=== PATIENT | female | born 1955 | race Caucasian/White ===

== ENCOUNTER → 2016-12-07 | Outpatient (CLI) | payer OTHER ==
[~2016-12-07] MED LIST: ALBUAER2 INH; EFF75 PO; HYDR-4079 PO; METO100T44 PO; PRED10TA PO
[2016-12-07 11:53] LABS: BASO % 1.8 %; BASO ABS # 0.09 K/uL (0-0.2); HEMATOCRIT 38.4 % (37-47); IG% 0.4 %; LYMPH % 36.7 %; LYMPH ABS # 1.83 K/uL (1.2-3.4); MEAN CELL VOLUME 98.2 fL (80-100); MEAN CORPUSCULAR HEMOGLOBIN 30.2 pg (25-34); MEAN CORPUSCULAR HGB CONC 30.7 g/dl (32-36); MEAN PLATELET VOLUME 10.9 fL (7.4-10.4); MONO % 11.2 %; NEUT % 45.9 %; PLATELET COUNT 246 K/uL (130-400); RED BLOOD COUNT 3.91 M/uL (4.2-5.4); WHITE BLOOD COUNT 4.99 K/uL (4.8-10.8)
[2016-12-07 12:23] LABS: ALB/GLOB RATIO 0.7 (0.9-2); ALKALINE PHOSPHATASE 100 U/L (45-117); ALT/SGPT 20 U/L (12-78); AST/SGOT 21 U/L (15-37); BLOOD UREA NITROGEN 15 mg/dl (7-18); CALCIUM 9.4 mg/dl (8.5-10.1); CARBON DIOXIDE 32 mmol/L (21-32); CHLORIDE 106 mmol/L (98-107); CREATININE 0.77 mg/dl (0.60-1.20); GLUCOSE 86 mg/dl (70-99); POTASSIUM 4.6 mmol/L (3.5-5.1); SODIUM 141 mmol/L (136-145)
[2016-12-07 12:25] LABS: COMPLETE YES; ROULEAUX 3+
[2016-12-09 09:38] LABS: HEPATITIS C VIRAL RNA BY PCR <15 NOT DETECTED IU/ML (<15); HEPATITIS C VIRAL RNA(LOG) PCR <1.18 NOT DETECTED LOG IU/ML (<1.18)
== END | disposition home or self-care (01) ==
LOC: C.LAB1850 10:21
PROVIDERS: ATTEND Internal Medicine Infectious Disease
DX: B18.2 Chronic viral hepatitis C (principal)

== ENCOUNTER → 2017-05-11 | Outpatient (CLI) | payer OTHER ==
[~2017-05-11] MED LIST changes: -METO100T44 PO; +METO1TAB69 PO
--- NOTE | 2017-05-11 11:52 | DIAGNOSTIC IMAGING REPORT ---
MRI CERVICAL WITHOUT CONTRAST CLINICAL HISTORY: Neck pain with popping voids. Severe headaches. TECHNIQUE: Sagittal and axial T1, T2 and STIR images were obtained. COMPARISON STUDY: CT scan dated March 02, 2015, MRI of the cervical spine dated 07/05/2012 There are no suspicious areas of marrow replacement. No intrinsic cervical cord lesions are visualized. There is no evidence of a Chiari malformation. C2-3: There is no evidence of disc bulge or focal herniation. There is no spinal or foraminal stenosis. C3-4: There is no evidence of disc bulge or focal herniation. There is no spinal or foraminal stenosis. C4-5: There is a mild circumferential disc bulge. There is no significant spinal or foraminal stenosis C5-6 :There is mild retrolisthesis of C5 on C6. There is disc desiccation and narrowing. There is no significant spinal stenosis. There is mild bilateral foraminal narrowing. C6-7: There is no evidence of disc bulge or focal herniation. There is no evidence of spinal or foraminal stenosis. C7-T1: There is no evidence of disc bulge or focal herniation. There is no evidence of spinal or foraminal stenosis. IMPRESSION:Persistent degenerative changes at the C5-6 level with 2.7 mm of retrolisthesis of C5 on C6 which remains unchanged. Mild bilateral foraminal narrowing at the C5-6 level. Electronically signed by: Guillermo Guerrero M.D. 05/11/2017 11:50 AM Dictated Date/Time: 05/11/2017 11:46 AM
== END | disposition home or self-care (01) ==
LOC: C.MRI 10:47
PROVIDERS: ATTEND Neurological Surgery
DX: R51 Headache (principal); M47.892 Other spondylosis, cervical region

== ENCOUNTER 2022-04-15 11:07 | Observation (INO) ==
--- NOTE | 2022-03-09 14:06 | PAT Medication Instructions ---
Medication Instructions Date of Service March 09, 2022 Home Medications Medication Instructions Recorded albuterol sulfate 2.5 mg/3 mL 2.5 mg (3 mL) inhalation Q4H PRN 04/07/20 (0.083 %) solution for nebulization Shortness Of Breath Or Wheezing #150 mL cholecalciferol (vitamin D3) 125 125 mcg PO DAILY #30 caps 10/07/20 mcg (5,000 unit) capsule montelukast 10 mg tablet 10 mg PO HS 1 month #30 tabs 06/16/21 (Singulair) gabapentin 300 mg capsule 300 mg PO TID #270 caps 08/05/21 (Neurontin) budesonide-formoterol HFA 160 1 puff inhalation BID #10.2 grams 09/23/21 mcg-4.5 mcg/actuation aerosol inhaler (Symbicort) omeprazole 20 mg capsule,delayed See Rx Instructions .Route 12/21/21 release .COMPLEX #90 caps bupropion HCl 150 mg 24 hr tablet, 150 mg PO QAM #90 tabs 01/13/22 extended release albuterol sulfate 90 mcg/actuation 2 puff inhalation QID PRN 02/07/22 aerosol inhaler (Ventolin HFA) Bronchodilation #8.5 grams carisoprodol 350 mg tablet 350 mg PO BID PRN muscle pain #60 02/16/22 tabs oxycodone-acetaminophen 10 mg-325 1 tab PO Q6H PRN Pain #120 tabs 02/16/22 mg tablet alendronate 70 mg tablet (Fosamax) 70 mg PO MO #12 tabs 03/08/22 albuterol sulfate 2.5 mg/3 mL (0.083 %) solution for nebulization 2.5 mg (3 mL) inhalation Q4H PRN Shortness Of Breath Or Wheezing cholecalciferol (vitamin D3) 125 mcg (5,000 unit) capsule 125 mcg PO DAILY montelukast 10 mg tablet (Singulair) 10 mg PO HS 1 month gabapentin 300 mg capsule (Neurontin) 300 mg PO TID budesonide-formoterol HFA 160 mcg-4.5 mcg/actuation aerosol inhaler (Symbicort) 1 puff inhalation BID omeprazole 20 mg capsule,delayed release See Rx Instructions bupropion HCl 150 mg 24 hr tablet, extended release 150 mg PO QAM albuterol sulfate 90 mcg/actuation aerosol inhaler (Ventolin HFA) 2 puff inhalation QID PRN Bronchodilation carisoprodol 350 mg tablet 350 mg PO BID PRN muscle pain oxycodone-acetaminophen 10 mg-325 mg tablet 1 tab PO Q6H PRN Pain alendronate 70 mg tablet (Fosamax) 70 mg PO MO eygsevt-tlcpvezygujgx-qrhttpse 250 mg-250 mg-65 mg tablet (Excedrin Extra Strength) 1 - 2 tab PO Q6H PRN Pain duloxetine 30 mg capsule,delayed release (Cymbalta) 30 mg PO QAM duloxetine 60 mg capsule,delayed release 60 mg PO QAM ibuprofen 200 mg tablet (Advil) 400 mg PO Q6H PRN Pain metoprolol succinate 100 mg tablet,extended release 24 hr 100 mg PO QAM tiotropium bromide 2.5 mcg/actuation mist for inhalation (Spiriva Respimat) 2 puff inhalation QAM Continue as directed omeprazole 20 mg capsule,delayed release See Rx Instructions alendronate 70 mg tablet (Fosamax) 70 mg PO MO (just do not take on morning of surgery) ASK your surgeon for instructions goagchu-cjutloimvolxl-yjtwjqcy 250 mg-250 mg-65 mg tablet (Excedrin Extra Strength) 1 - 2 tab PO Q6H PRN Pain ibuprofen 200 mg tablet (Advil) 400 mg PO Q6H PRN Pain DO NOT take the morning of surgery cholecalciferol (vitamin D3) 125 mcg (5,000 unit) capsule 125 mcg PO DAILY carisoprodol 350 mg tablet 350 mg PO BID PRN muscle pain Take morning of surgery With a small sip of water, OTHERWISE NOTHING TO EAT OR DRINK AFTER MIDNIGHT: albuterol sulfate 2.5 mg/3 mL (0.083 %) solution for nebulization 2.5 mg (3 mL) inhalation Q4H PRN Shortness Of Breath Or Wheezing (if needed) metoprolol succinate 100 mg tablet,extended release 24 hr 100 mg PO QAM tiotropium bromide 2.5 mcg/actuation mist for inhalation (Spiriva Respimat) 2 puff inhalation QAM gabapentin 300 mg capsule (Neurontin) 300 mg PO TID budesonide-formoterol HFA 160 mcg-4.5 mcg/actuation aerosol inhaler (Symbicort) 1 puff inhalation BID bupropion HCl 150 mg 24 hr tablet, extended release 150 mg PO QAM albuterol sulfate 90 mcg/actuation aerosol inhaler (Ventolin HFA) 2 puff inhalation QID PRN Bronchodilation (use if needed; please bring with you to hospital day of surgery if possible) oxycodone-acetaminophen 10 mg-325 mg tablet 1 tab PO Q6H PRN Pain (if needed) duloxetine 30 mg capsule,delayed release (Cymbalta) 30 mg PO QAM duloxetine 60 mg capsule,delayed release 60 mg PO QAM Take evening before surgery montelukast 10 mg tablet (Singulair) 10 mg PO HS gabapentin 300 mg capsule (Neurontin) 300 mg PO TID budesonide-formoterol HFA 160 mcg-4.5 mcg/actuation aerosol inhaler (Symbicort) 1 puff inhalation BID albuterol sulfate 90 mcg/actuation aerosol inhaler (Ventolin HFA) 2 puff inhalation QID PRN Bronchodilation (if needed) carisoprodol 350 mg tablet 350 mg PO BID PRN muscle pain (if needed) oxycodone-acetaminophen 10 mg-325 mg tablet 1 tab PO Q6H PRN Pain (if needed) Other Notes If you have any questions please call us at [phone] or [phone] or [phone] or [phone]
--- NOTE | 2022-03-14 13:53 | Anesthesiology Consultation ---
Date of Service March 14, 2022 Assessment & Plan (1) Encounter for pre-operative examination: - Cardiology office visit (10/29/20): "Cardiomyopathy: She has a mild cardiomyopathy with wall motion abnormalities. The wall motion abnormalities are worrisome. She has a lot of reasons for cardiomyopathy including a sustained high heart rate, frequent premature ventricular beats and possibly ischemic heart disease although there is no infarction pattern on electrocardiography. We will probably need to do something to exclude ischemic heart disease but I want to get the rhythm under control a little bit before we do that.. Frequent premature ventricular beats: She appears to have very frequent premature ventricular beats, today they are in a bigeminal pattern. Based on the morphology they are inferiorly directed but from the left heart, not the right ventricular outflow tract. They may be contributory to her cardiomyopathy. I think we should place her on a beta-nathaniel and I am going to prescribe metoprolol succinate in place of diltiazem, calcium blockers can sometimes be used for these rhythms but it clearly is not working today. Sometimes it takes high doses to treat these. Ablation is also a possibility, but first I would like to quantify the premature beats and see if there is any complexity such as runs of nonsustained ventricular tachycardia. I am placing a 24-hour Holter monitor today and she will start her metoprolol until after the monitor is removed tomorrow.. Tachycardia: She evidently has a long history of tachycardia, prior electrocardiogram shows sinus tachycardia and perhaps that is what she has had for years. That could contribute to left ventricular dysfunction. She is on diltiazem (although she does not know why) but that is often not very effective in controlling heart rate. I think would be better to use a beta-nathaniel, especially with her left ventricular dysfunction, so I am going to switch her to metoprolol succinate.. Dyspnea on exertion: She does describe dyspnea exertion which has not been progressive but does interfere with strenuous activities. 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 Epigastric discomfort: She describes epigastric discomfort which occurs predominantly after she eats greasy meals or when she eats too much or when she eats spicy food like chili, it does not occur with exertion. It sounds as though it is GERD rather than angina." Patient states she was not given f/u appt (one was scheduled in our system but patient says she did not know about it). Patient scheduled for preop cardiology evaluation (scheduled 03/23; [facility]). - COVID screening: Per assessment on 03/14: No known COVID-19 positive contacts or current COVID-19 related symptoms. Travel screen negative. Patient vaccinated. At surgeon discretion if preop Covid testing being done. Chart Review Chart Review: Patient seen in Pre Admission Testing Teaching & Discussion Pre-Anesthesia Teaching/Discussion Notes: Instructed NPO after midnight before surgery,except medications with 15 cc of water. Medication instructions provided according to the PAT guidelines. History Surgery Operation Date: 04/15/22 12:50 Proposed Procedures p Right Total Knee Arthroplasty - Gabriel Rick DO Height/Weight Height: 5 ft 1 in Weight: 63.4 kg Allergies Allergy/AdvReac Type Severity Reaction Status Date / Time Horse/Equine Containing Allergy Unknown Skin test Verified 03/14/22 14:02 Products positive Medications Home Medications Medication Instructions Recorded Confirmed Last Taken albuterol sulfate 2.5 mg/3 mL 2.5 mg (3 mL) inhalation Q4H PRN 04/07/20 03/08/22 Unknown (0.083 %) solution for nebulization Shortness Of Breath Or Wheezing #150 mL cholecalciferol (vitamin D3) 125 125 mcg PO DAILY #30 caps 10/07/20 03/08/22 Unknown mcg (5,000 unit) capsule montelukast 10 mg tablet 10 mg PO HS 1 month #30 tabs 06/16/21 03/08/22 Unknown (Singulair) gabapentin 300 mg capsule 300 mg PO TID #270 caps 08/05/21 03/08/22 Unknown (Neurontin) budesonide-formoterol HFA 160 1 puff inhalation BID #10.2 grams 09/23/21 03/08/22 Unknown mcg-4.5 mcg/actuation aerosol inhaler (Symbicort) omeprazole 20 mg capsule,delayed See Rx Instructions .Route 12/21/21 03/08/22 Unknown release .COMPLEX #90 caps bupropion HCl 150 mg 24 hr tablet, 150 mg PO QAM #90 tabs 01/13/22 03/08/22 Unknown extended release albuterol sulfate 90 mcg/actuation 2 puff inhalation QID PRN 02/07/22 03/08/22 Unknown aerosol inhaler (Ventolin HFA) Bronchodilation #8.5 grams carisoprodol 350 mg tablet 350 mg PO BID PRN muscle pain #60 02/16/22 03/08/22 Unknown tabs oxycodone-acetaminophen 10 mg-325 1 tab PO Q6H PRN Pain #120 tabs 02/16/22 03/08/22 Unknown mg tablet alendronate 70 mg tablet (Fosamax) 70 mg PO MO #12 tabs 03/08/22 03/08/22 Unknown lbfrtbl-spfnnfklglpvi-zvztsczf 250 1 - 2 tab PO Q6H PRN Pain 03/08/22 03/08/22 Unknown mg-250 mg-65 mg tablet (Excedrin Extra Strength) duloxetine 30 mg capsule,delayed 30 mg PO QAM 03/08/22 03/08/22 Unknown release (Cymbalta) duloxetine 60 mg capsule,delayed 60 mg PO QAM 03/08/22 03/08/22 Unknown release ibuprofen 200 mg tablet (Advil) 400 mg PO Q6H PRN Pain 03/08/22 03/08/22 Unknown metoprolol succinate 100 mg 100 mg PO QAM 03/08/22 03/08/22 Unknown tablet,extended release 24 hr tiotropium bromide 2.5 2 puff inhalation QAM 03/08/22 03/08/22 Unknown mcg/actuation mist for inhalation (Spiriva Respimat) Past Medical History Medical History Allergic rhinitis Anxiety Asthma-COPD overlap syndrome Stable Cardiomyopathy EF 45-50% per 10/16/20 echo > Possibly tachycardia-induced per cardio records Cervical disc disease Chronic back pain Frequent unifocal PVCs GERD (gastroesophageal reflux disease) Hepatitis C Treated with Harvoni Hiatal hernia History of atrial fibrillation Remote hx 30 years ago per pt's (not indicated in 2020 cardio records) Hypertension Kidney stones Mixed conductive and sensorineural hearing loss Osteoarthritis of right knee Osteoporosis Fosamax started 09/2019 Vocal cord disease "flow volume loop suggest significant expiratory limb flattening which would be consistent with potential paroxysmal vocal cord dysfunction" per pulmonary review of PFTs from 06/2020 Exercise / Class Metabolic Activity III < 4 Walking/Shop/Light housework (one (no CP, + SOB)) Past Family History Family History Father Family history of diabetes mellitus Hypertension Coronary heart disease Prostate cancer Cancer Heart disease Mother Hypertension COPD (chronic obstructive pulmonary disease) Aunt Asthma Allergic rhinitis Hypertension Heart disease Other No family history of allergies No family history of bleeding disorder Denies family history of Hearing loss Stroke Past Surgical History Surgical History History of bilateral cataract extraction History of bilateral tubal ligation History of colonoscopy History of cystoscopy History of esophagogastroduodenoscopy (EGD) History of foot surgery History of lithotripsy History of myringotomy R/L History of neck surgery History of open reduction and internal fixation (ORIF) procedure left foot (+ plate) History of placement of ear tubes History of sinus surgery History of tonsillectomy and adenoidectomy Status post cervical spinal fusion Status post correction of deviated nasal septum Status post cystoscopy with ureteral stent placement Status post thoracotomy L lung with biopsy (negative) Past Anesthesia History No Hx of Anesthesia Complications and No Family Hx of Anesthesia Complications History of PONV No Hx of PONV and No Hx of Motion Sickness Social History Smoking Status: Former smoker Do You Dip or Chew Tobacco: No Smoking End Date: Quit 40 years ago (hx 1-2 packs/week) Hx Alcohol Use: Yes Alcohol type: beer alcohol intake frequency: holidays/special occasions only Hx Substance Use: No Review of Systems Patient denies chest pain, shortness of breath, dyspnea on exertion, fever, chills, cough, wheezing. Physical Exam Vital Signs VITALS BP 108/76 P 93 TEMP 98.5 SP02 95%RA RESP 18 PHYSICAL Full cervical extension range of motion. Full TMJ range of motion. TMD 3 finger breaths Mallampati Score 1 Dentition: full upper denture, approximately 8 remaining on lower Lungs: inspiratory/expiratory wheezes Cardiac: regular rate and rhythm, no murmurs noted Spine: normal Carotid arteries: negative bruit Extremities: no edema Lab Results Anesthesia Preop Results Results Anesthesia Widget: WBC 5.80 K/ul (4.8-10.8) 03/14/22 Hgb 11.4 g/dl (12.0-16.0) L 03/14/22 Hct 36.7 % (34.1-44.9) 03/14/22 Plt 180 K/uL (130-400) 03/14/22 Na 139 mmol/L (136-145) 03/14/22 K 4.3 mmol/L (3.5-5.1) 03/14/22 Cl 109 mmol/L (98-107) H 03/14/22 CO2 26 mmol/L (21-32) 03/14/22 BUN 13 mg/dl (6-23) 03/14/22 Creat 0.93 mg/dl (0.6-1.2) 03/14/22 Glucose Level 89 mg/dl (70-99(Fasting)) 03/14/22 PT 10.9 Seconds (9.0-12.0) 03/14/22 PTT 28.5 Seconds (21.0-31.0) 03/14/22 INR 1.0 (0.9-1.1) 03/14/22 Blood Type O Positive 03/14/22 Antibody Screen NEGATIVE 03/14/22 Testing Electrocardiogram Date: 03/14/22 NSR at 88bpm. Low voltage QRS. Chest X-Ray Date: 03/14/22 FINDINGS: Lung volumes are normal. Lungs are clear. There is no pneumothorax or pleural effusion. Cardiac size is normal. Mediastinal contours are normal. There is no evidence for pulmonary edema. Postoperative findings within the cervical spine are incidentally noted. IMPRESSION: No acute cardiopulmonary findings. Echocardiogram Date: 10/16/20 EF 45-50%. Grade 1 diastolic dysfunction. No regional wall motion abnormality. Mild lateral and basal inferior hypokinesis. Mild to moderate MR. Mild LAD. Trace to mild TR. Pulmonary Function Test Date: 07/29/20 Moderate obstructive ventilatory defect. Normal lung volumes. DLCO severely reduced but improves with VA. Flattening of the expiratory limb and flow volume loop. Other Testing 24 hour holter monitor (10/29/20) Rhythm is predominantly sinus tachycardia with incomplete IVCD. Average heart rate is 101 bpm. Minimum heart rate 85 bpm. Maximum heart rate 132 bpm. No significant pauses or AV block noted. Occasional isolated APD's noted. Isolated nonsustained episodes of atrial tachycardia seen. Frequent isolated and couplet VPD's noted. Isolated nonsustained episodes of A. tach seen (up to 4 beats). Ventricular arrhythmia comprise 23.7% of recorded beats.
--- NOTE | 2022-04-14 11:17 | History & Physical Report ---
Date of Service April 14, 2022 Assessment & Plan (1) Osteoarthritis of right knee: We will proceed with a right total knee arthroplasty. Postoperatively she will be started on aspirin for DVT prophylaxis and kept overnight in the hospital for postop medical management. She plans to have home health set up for her before discharge. History of Present Illness Chief Complaint: Osteoarthritis of the right knee. Primary Care Provider: Kala Yarbrough MD Shahnaz is a pleasant 66-year-old female who has been dealing with chronic worsening right knee pain. She has severe varus deformity of her right knee. It is causing her instability and she has been falling recently. She saw my partner Dr. Fairbanks. X-rays show severe varus deformity and arthritis of the right knee. After failing conservative treatment, she has elected to proceed with a right total knee arthroplasty. Allergies Allergy/AdvReac Type Severity Reaction Status Date / Time Horse/Equine Containing Allergy Unknown Skin test Verified 04/05/22 14:07 Products positive Home Medications Medication Instructions Recorded Confirmed Type albuterol sulfate 2.5 mg/3 mL 2.5 mg (3 mL) inhalation Q4H PRN 04/07/20 04/05/22 Rx (0.083 %) solution for nebulization Shortness Of Breath Or Wheezing #150 mL cholecalciferol (vitamin D3) 125 125 mcg PO DAILY #30 caps 10/07/20 04/05/22 Rx mcg (5,000 unit) capsule montelukast 10 mg tablet 10 mg PO HS 1 month #30 tabs 06/16/21 04/05/22 Rx (Singulair) gabapentin 300 mg capsule 300 mg PO TID #270 caps 08/05/21 04/05/22 Rx (Neurontin) budesonide-formoterol HFA 160 1 puff inhalation BID #10.2 grams 09/23/21 04/05/22 Rx mcg-4.5 mcg/actuation aerosol inhaler (Symbicort) omeprazole 20 mg capsule,delayed See Rx Instructions .Route 12/21/21 04/05/22 Rx release .COMPLEX #90 caps bupropion HCl 150 mg 24 hr tablet, 150 mg PO QAM #90 tabs 01/13/22 04/05/22 Rx extended release albuterol sulfate 90 mcg/actuation 2 puff inhalation QID PRN 02/07/22 04/05/22 Rx aerosol inhaler (Ventolin HFA) Bronchodilation #8.5 grams alendronate 70 mg tablet (Fosamax) 70 mg PO MO #12 tabs 03/08/22 04/05/22 Rx mnsqyed-pauhcdjfjdqvx-sdpnatys 250 1 - 2 tab PO Q6H PRN Pain 03/08/22 04/05/22 History mg-250 mg-65 mg tablet (Excedrin Extra Strength) duloxetine 30 mg capsule,delayed 30 mg PO QAM 03/08/22 04/05/22 History release (Cymbalta) duloxetine 60 mg capsule,delayed 60 mg PO QAM 03/08/22 04/05/22 History release ibuprofen 200 mg tablet (Advil) 400 mg PO Q6H PRN Pain 03/08/22 04/05/22 History metoprolol succinate 100 mg 100 mg PO QAM 03/08/22 04/05/22 History tablet,extended release 24 hr tiotropium bromide 2.5 2 puff inhalation QAM 03/08/22 04/05/22 History mcg/actuation mist for inhalation (Spiriva Respimat) hydroxyzine HCl 10 mg tablet See Rx Instructions .Route 04/05/22 04/05/22 Rx .COMPLEX #30 tabs carisoprodol 350 mg tablet 350 mg PO BID PRN muscle pain #60 04/11/22 Rx tabs oxycodone-acetaminophen 10 mg-325 1 tab PO Q6H PRN Pain #120 tabs 04/12/22 Rx mg tablet Past Med/Surg History Medical History Allergic rhinitis Anxiety Asthma-COPD overlap syndrome Stable Cardiomyopathy EF 45-50% per 10/16/20 echo > Possibly tachycardia-induced per cardio records Cervical disc disease Chronic back pain Frequent unifocal PVCs GERD (gastroesophageal reflux disease) Hepatitis C Treated with Harvoni Hiatal hernia History of atrial fibrillation Remote hx 30 years ago per pt's (not indicated in 2020 cardio records) Hypertension Kidney stones Mixed conductive and sensorineural hearing loss Osteoarthritis of right knee Osteoporosis Fosamax started 09/2019 Vocal cord disease "flow volume loop suggest significant expiratory limb flattening which would be consistent with potential paroxysmal vocal cord dysfunction" per pulmonary review of PFTs from 06/2020 Surgical History History of bilateral cataract extraction History of bilateral tubal ligation History of colonoscopy History of cystoscopy History of esophagogastroduodenoscopy (EGD) History of foot surgery History of lithotripsy History of myringotomy R/L History of neck surgery History of open reduction and internal fixation (ORIF) procedure left foot (+ plate) History of placement of ear tubes History of sinus surgery History of tonsillectomy and adenoidectomy Status post cervical spinal fusion Status post correction of deviated nasal septum Status post cystoscopy with ureteral stent placement Status post thoracotomy L lung with biopsy (negative) Family History Father Family history of diabetes mellitus Hypertension Coronary heart disease Prostate cancer Cancer Heart disease Mother Hypertension COPD (chronic obstructive pulmonary disease) Aunt Asthma Allergic rhinitis Hypertension Heart disease Other No family history of allergies No family history of bleeding disorder Denies family history of Hearing loss Stroke Social History Smoking Status: Former smoker Tobacco Type: Cigarettes Number of Years Since Quit: 40; Second Hand Exposure: Yes (SPOUSE SMOKES); Hx Alcohol Use: Yes Alcohol type: beer Hx Substance Use: No Preferred Language: Gibraltarian Communication Ability: Effective 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 Physical Exam On physical examination the right knee, she does have a severe varus deformity. She has range of motion of 0 to 120 degrees. She has tenderness palpation of the distal medial femoral condyle and over the medial joint line.. Constitutional WD/WN, vitals as above Eyes PERRL, conjunctivae normal, anicteric sclerae ENMT external ear and nose normal, oropharynx normal Neck trachea midline, no thyromegaly Respiratory normal respiratory effort, lungs clear to auscultation Cardiovascular RRR, no murmur, no edema Gastrointestinal (Abdomen) normal bowel sounds, soft, nontender, no hepatosplenomegaly Skin no rashes, warm and dry Psychiatric A+Ox3, euthymic affect Results & Data Results & Data Laboratory Results . Diagnostic Findings X-rays of the right knee show complete collapse of the medial compartment. The re is joint space narrowing osteophyte formation and [id number] articulation.. PG Care Time/CCT Total # of Minutes Spent Total Time Spent with Patient: Total time spent is greater than 50% in coordination of care (as documented) at patient's floor/unit and/or counseling patient: Coding Level of Care Code None Diagnoses Osteoarthritis of right knee M17.11
[~2022-04-15 11:07] MED LIST changes: +ACETAMINOPHEN 500 MG TAB PO SCH; -ALBUAER2 INH; +BUPIVACAINE 0.5 % 5 MG/1 ML PF 10ML VIAL ONE; -EFF75 PO; +FAMOTIDINE 20 MG TAB PO SCH; +GABAPENTIN 300 MG CAP PO SCH; -HYDR-4079 PO; +LR 500ML BOLUS, THEN 15ML/HR IV SCH; +LR 60ML/HR IV SCH; -METO1TAB69 PO; +ORTHO JOINT MIX INFIL SCH; -PRED10TA PO; +ROPIVACAINE 0.5% 5 MG/ML 30 ML VIAL ONE; +TRANEXAMIC ACID 1,000 MG **IV Intra-op IV SCH; +TRANEXAMIC ACID 1,000 MG **IV Pre-op IV SCH; +ceFAZolin 1000MG 1,000 MG/7.5 ML SYR IV SCH; +dexAMETHasone 4 MG TAB PO SCH
[2022-04-15] MEDS ORDERED: fentaNYL citrate 100 MCG/2 ML VIAL ONE ×2 (12:42→15:00)
[2022-04-15] MEDS ORDERED: PROPOFOL IV EMULSION 10 MG/ML 20 ML VIAL IV ONE ×3 (12:42→15:29)
[2022-04-15] MEDS ORDERED: MIDAZOLAM HCL 1 MG/ML 2ML VIAL ONE ×2 (12:42→14:18)
--- NOTE | 2022-04-15 13:11 | History & Physical Bridge Note ---
Date of Service April 15, 2022 History & Physical Bridge Note I have examined the patient, reviewed the History & Physical and in the interval since the performance of the History & Physical I have noted the following changes of clinical significance: no changes noted
[2022-04-15] MEDS ORDERED: ORTHO JOINT ANESTHETIC ONE (13:46)
[2022-04-15] MEDS ORDERED: KETAMINE 50 MG/5 ML SYRINGE ONE (14:14)
[2022-04-15] MEDS ORDERED: ONDANSETRON INJ 2 MG/ML 2 ML VIAL ONE (14:44)
--- NOTE | 2022-04-15 15:28 | Operative Report ---
PG Post Operative Report Pre & Post Diagnosis Operation Date: 04/15/22 14:00 Pre-Op Diagnosis: Osteoarthritis Right Knee Post-Op Diagnosis: Osteoarthritis Right Knee I identified the patient and participated in the time-out.: Yes Procedure Operation Date: 04/15/22 14:00 Actual Procedures p Right Total Knee Arthroplasty(Right) - Gabriel Rick DO Surgeon Gabriel Rick DO Painting Manager Gabriel Donato PA-C Estimated Blood Loss 10 Findings Consistent with Post-Op Diagnosis Specimens Right femoral and tibial bone Description of Procedure Implants used: I used a Stephie Persona total knee arthroplasty system with a size 5 PS femur, D tibia, 28 oval patella, and a size 12 CPS polyethylene bearing. All components were cemented in place with Biomet cement. Shahnaz arrived [facility] for the above procedure. She was seen in the preoperative holding area and the operative extremity was identified and signed. She was given a preoperative antibiotic, TXA, a spinal anesthetic and an adductor nerve block. She was taken back to the operating room and laid on the table in supine position. She was given basic sedation. The operative knee was then prepped and draped in sterile fashion. A timeout was done, and the patient and the operative extremity was properly identified. A midline incision was made directly over the patella. Dissection was taken down to the extensor mechanism. A subvastus arthrotomy was used. The medial retinaculum was released and the fat pad was mostly excised. The knee was flexed and the ACL, PCL, and meniscus were removed. A drill was sent down the center of the femoral canal followed by an intramedullary rosamaria. Off that rosamaria a distal femoral cutting block was placed. 9 mm was resected off the distal femur at 5 of valgus. A posterior referencing AP sizing guide was then placed on the distal femur. The femur measured to be a size 5. 2 drill holes were placed in 3 of external rotation. A 4-in-1 cutting block was then impacted into place. Anterior, posterior, and chamfer cuts were then made. The proximal tibia was then exposed. An external tibial alignment guide was placed. A tibial cut guide was then anchored in place and the proximal tibia was then resected. The posterior aspect of the knee was then opened up and any additional meniscus fragments and osteophytes were removed. The tibia measured to be a size D. The tibial plate was then placed in the appropriate rotation and the tibia was drilled and punched. Trial components were then placed. I used a size 12 CPS polyethylene insert. The knee was brought through a full range of motion and felt to be stable. The peg holes for the femoral component were then drilled. The patella was then everted and 9 mm was resected off the posterior aspect of the patella. The patella measured to be a size 28 oval. 3 peg holes were then drilled. A trial patella was placed. The knee was once again brought through a full range of motion and felt to be stable. Trial components were then removed. The surrounding soft tissues were injected with 100 cc of an orthopedic pain control cocktail. All components were then cemented into place with Biomet cement. The final polyethylene insert was then snapped into place. Once cement was dry the tourniquet was deflated. Hemostasis was obtained. A dilute betadyne lavage was then done for 3 minutes. The joint was then irrigated with normal saline solution. The subvastus arthrotomy was then closed with #1 Vicryl suture. The skin was closed with 2-0 Vicryl, 3-0V lock suture, and lizeth. A soft compressive dressing was placed. She was then transferred to a hospital bed and taken to the postanesthesia care unit in stable condition. She tolerated the procedure well. Gabriel Donato PA-C, was present for the entire procedure. He was critical for patient positioning, prepping, draping, retraction exposure, wound closure and application of sterile dressing. I attest to the content of the Intraoperative Record and any orders documented therein. Any exceptions are noted below.
--- NOTE | 2022-04-15 16:28 | XRay Report ---
RIGHT KNEE 2 VIEWS History: Right total knee arthroplasty. Degenerative arthritis. Postop. FINDINGS: The patient is status post a right total knee arthroplasty. The hardware is intact. No frac ture or dislocation. Skin lizeth are in place. IMPRESSION: Right total knee arthroplasty. No evidence for hardware complication. ACT 112: Negative or not required by law. Electronically signed by: Julius Royal M.D. 04/15/2022 4:27 PM
--- NOTE | 2022-04-15 16:51 | Anesthesiology Progress Note ---
Date of Service April 15, 2022 Anesthesia Post Procedure Vital Signs Vital Signs: Temp Pulse Pulse Resp BP Pulse Ox O2 Del Method 04/15/22 16:45 105 H 22 102/76 98 Room Air 04/15/22 16:35 103 H 17 96/63 L 100 Room Air 04/15/22 16:25 101 H 16 111/72 98 Room Air 04/15/22 16:15 106 H 20 91/66 L 99 Room Air 04/15/22 16:05 103 H 20 100/71 100 Oxymask 04/15/22 15:56 36.2 C L 107 H 16 113/74 99 Oxymask 04/15/22 11:49 36.4 C L 102 H 20 128/83 97 Room Air 04/15/22 11:49 Room Air O2 Flow Rate 04/15/22 16:45 04/15/22 16:35 04/15/22 16:25 04/15/22 16:15 04/15/22 16:05 5 04/15/22 15:56 5 04/15/22 11:49 04/15/22 11:49 Transfer of Care Handoff Completed per policy Notes Mental Status: alert / awake / arousable Patient Amnestic to Procedure: Yes Nausea / Vomiting: adequately controlled Pain: adequately controlled Airway Patency, RR, SpO2: stable & adequate BP & HR: stable & adequate Hydration State: stable & adequate Neuraxial Anesthesia: was administered and sensory block is resolving Anesthetic Complications: no major complications apparent and Pt Satisfied with anesthetic care Notes: The patient is awake and stable. Her vital signs are stable at her baseline.
[2022-04-15] MEDS ORDERED: ALBUTEROL HFA 8 GM INHALER INH PRN (17:23)
[2022-04-15] MEDS ORDERED: NALOXONE HCL 0.4 MG/1 ML VIAL/CARP IV PRN (17:23)
[2022-04-15] MEDS ORDERED: METOCLOPRAMIDE HCL INJ 5 MG/ML 2 ML VIAL IV PRN (17:23)
[2022-04-15] MEDS ORDERED: ALBUTEROL 0.083% NEBU SOLN 3 ML VIAL INH PRN (17:23)
[2022-04-15] MEDS ORDERED: bisacodyL 10 MG SUPP PR PRN (17:23)
[2022-04-15] MEDS ORDERED: CARISOPRODOL 350 MG TABLET PO PRN (17:23)
[2022-04-15] MEDS ORDERED: ONDANSETRON INJ 2 MG/ML 2 ML VIAL IV PRN (17:23)
[2022-04-15] MEDS ORDERED: HYDROmorphone INJ 0.5 MG/0.5 ML SYR IV PRN (17:23)
[2022-04-15] MEDS ORDERED: MAGNESIUM HYDROXIDE SUSP 30 ML UDC PO PRN (17:23)
[2022-04-15] MEDS: SODIUM CHLORIDE 0.9% 1000ML 1,000 ML IV SCH (18:26)
[2022-04-15] MEDS: KETOROLAC 30 MG/ML VIAL IV SCH (18:27)
[2022-04-15] MEDS ORDERED: hydrOXYzine HCl 10 MG TAB PO PRN (21:00)
[2022-04-15] MEDS ORDERED: MONTELUKAST SODIUM 10 MG TABLET PO SCH (21:00)
[2022-04-15] MEDS ORDERED: SENNA 8.6 MG TAB PO SCH (21:00)
[2022-04-15] MEDS: DOCUSATE SODIUM 100 MG CAP PO SCH (21:53)
[2022-04-15] MEDS: ASPIRIN 81 MG ECTAB PO SCH (21:53)
[2022-04-15] MEDS: GABAPENTIN 300 MG CAP PO SCH (21:55)
[2022-04-15] MEDS: ACETAMINOPHEN 500 MG TAB PO SCH (21:55)
[2022-04-15] MEDS: oxyCODONE HCL IR 5 MG TAB (IMMEDIATE RELEASE) PO PRN (22:00)
[2022-04-15] MEDS: ceFAZolin 2000MG 2,000 MG/15 ML SYR IV SCH (22:05)
[2022-04-16] MEDS: KETOROLAC 30 MG/ML VIAL IV SCH (00:15)
[2022-04-16] MEDS: oxyCODONE HCL IR 5 MG TAB (IMMEDIATE RELEASE) PO PRN ×3 (02:56→13:46)
[2022-04-16] MEDS: SODIUM CHLORIDE 0.9% 1000ML 1,000 ML IV SCH (05:39)
[2022-04-16] MEDS: ACETAMINOPHEN 500 MG TAB PO SCH ×2 (05:57→13:46)
[2022-04-16] MEDS: ceFAZolin 2000MG 2,000 MG/15 ML SYR IV SCH (05:57)
[2022-04-16] MEDS: KETOROLAC TROMETHAMINE 15 MG/ML VIAL IV SCH ×2 (05:59→12:05)
--- NOTE | 2022-04-16 07:50 | Orthopedic Progress Note ---
Date of Service April 16, 2022 Assessment & Plan (1) Status post right knee replacement: Overall she is doing very well. She is having much pain in the right shoulder. She will be seen by physical therapy today for ambulation and range of motion exercises. She can be discharged home later today. She is on aspirin for DVT prophylaxis. She will follow-up with orthopedics in 2 weeks. Eze Christie was seen and examined at bedside this morning. Overall she is doing very well. She is not any much pain in the right knee. She has been up and ambulating to the bathroom. She has no complaints.. Review of Systems All systems reviewed & are unremarkable except as noted in HPI & below. Physical Exam On physical examination of the right knee, her leg is out in full extension. The dressing is clean and dry. She has active motion of her right ankle.. Results & Data Results & Data Laboratory Results . Diagnostic Findings Postoperative x-rays of the right ankle show the prosthesis to be in anatomic alignment without any evidence of fracture, desiccation, or loosening. PG Care Time/CCT Total # of Minutes Spent Total Time Spent with Patient: Total time spent is greater than 50% in coordination of care (as documented) at patient's floor/unit and/or counseling patient: Coding Level of Care Code 53657 Post Operative Follow-Up Diagnoses Status post right knee replacement Z96.651
--- NOTE | 2022-04-16 07:51 | Discharge Summary ---
Date of Service April 16, 2022 Admission HPI (Per Admitting) Shahnaz is a pleasant 66-year-old female who has been dealing with chronic worsening right knee pain. She has severe varus deformity of her right knee. It is causing her instability and she has been falling recently. She saw my partner Dr. Fairbanks. X-rays show severe varus deformity and arthritis of the right knee. After failing conservative treatment, she has elected to proceed with a right total knee arthroplasty. Admission Exam (Per Admitting) On physical examination the right knee, she does have a severe varus deformity. She has range of motion of 0 to 120 degrees. She has tenderness palpation of the distal medial femoral condyle and over the medial joint line.. Principal Diagnosis Same as "Discharge Diagnosis" noted below under Discharge Instructions. Discharge Exam On physical examination of the right knee, her leg is out in full extension. The dressing is clean and dry. She has active motion of her right ankle.. Discharge Data Procedures Performed Operation Date: 04/15/22 14:00 Actual Procedures p Right Total Knee Arthroplasty(Right) - Gabriel Rick DO Ordered Studies 04/15/22 05:00 US - OR guided needle placemen Routine Hospital Course (1) Status post right knee replacement: On April 15, 2022 Shahnaz arrived at [facility] and underwent a right knee replaced without complication. She had a spinal anesthetic. Postoperatively she was started on aspirin for DVT prophylaxis and transferred to the general orthopedic floors. Her hospital course was uneventful. On postop day #1, her vital signs were stable and her pain was well controlled. She was able to participate well with physical therapy doing ambulation and range of motion exercises. She was then discharged home. She will follow-up with orthopedics in 2 weeks. PG Care Time/CCT Total # of Minutes Spent Total Time Spent with Patient: Total time spent is greater than 50% in coordination of care (as documented) at patient's floor/unit and/or counseling patient: Discharge Plan Discharge Items Patient Disposition: Home - Home Health Services Reason For Visit: DJD Knee Right Discharge Diagnosis: Right knee replacement Activity: Per Instructions section Non-emergency contact: Surgeon Call non-emergency contact if: your wound has increased redness and your wound has increased drainage Follow-up/Referrals: Kala Yarbrough MD [Primary Care Provider] - Diet: Regular Addtl Attending Provider Instructions: Activity and Therapy Recommendations: * If you are using [facility] then therapy will be provided at your home until they feel you have accomplished all of your goals. * If you are using [facility] then Physical Therapy will be provided until they feel you are ready to start Outpatient Physical Therapy. * If you are not using home therapy then Outpatient Physical Therapy should start about 3-5 days from your day of surgery. Therapy will last about 6-10 weeks * It is important not to put a pillow under your knee when you are relaxing or sleeping. It is just as important to make sure you are getting your knee perfectly straight as it is to regain your knee bend. * You were shown a series of exercises in the hospital. Do these exercises three times each day including the exercises you were shown in physical therapy. * Get up and walk several times each day. For the first four weeks, try not to stand or walk for more than one hour at a time. If you do stand or walk for more than one hour, you will not hurt anything, but your leg will likely swell. * As you feel comfortable, you may change from the walker or crutches to a cane and then to independent walking. Medications: * Narcotic You will likely be sent home from the hospital with a prescription for the narcotic pain medication that worked best throughout your stay. * Aspirin Most patients will be required to take Aspirin 81mg twice a day for 6 weeks after surgery. This is obtained [id number] and a prescription is not necessary. * Other medications may be prescribed for specific circumstances. If you have any questions, please call the office at . * Resume previous home medications unless otherwise instructed TEDs/Elastic Stockings: The white elastic stockings help limit swelling and prevent blood clots from forming in your legs.~ The more you wear them, the more they work. Wear them for six weeks. Dressing Care: The dressing can be changed after physical therapy on postop day #1. Daily dry dressing changes for a few days, especially if the incision is still draining some. If the incision is not draining then you may leave the lizeth open to air. If there is a little bit of drainage or if the lizeth are getting stuck on your clothing then cover the incision with a dry dressing. The lizeth will be removed at your 2 week follow-up appointment. Showering: You may shower 5 days from the day of surgery as long as the incision is no longer draining. You may shower with the lizeth exposed. Let soapy water run over the lizeth and pat them dry. Do not scrub or soak the incision. Things To Watch For: * Drainage from the incision site that occurs more than one week after your surgery. * Increased redness at the incision site. * Fever above 102 degrees Fahrenheit. * Unusual chest pain or shortness of breath. * Call [facility] at with any of the above problems Follow-Up Visit: Follow-up with Dr. Rick's PA (Gabriel Donato) 2-3 weeks after your day of surgery. He will remove your lizeth and answer any questions. If you have any additional questions or concerns, Dr Rick is usually in the office at the same time and will be available An appointment was probably scheduled when you signed-up for surgery in the office. If you have any questions call Office Instructions: More detailed instructions as well as Frequently Asked Questions were provided in a folder by our office when you signed-up for surgery. Please review these instructions when you get home. If you have any further questions or concerns, please feel free to call the office at [phone] Pending Studies at Discharge: No Stand-Alone Forms: My [facility] Medications and DC Order Prescriptions: New aspirin [Adult Aspirin Regimen] 81 mg tablet,delayed release (DR/EC) 81 mg PO BID Qty: 84 0RF Continued albuterol sulfate 2.5 mg /3 mL (0.083 %) solution for nebulization 2.5 mg inhalation Q4H PRN (Reason: Shortness Of Breath Or Wheezing) Qty: 150 5RF montelukast [Singulair] 10 mg tablet 10 mg PO HS 30 Days Qty: 30 5RF gabapentin [Neurontin] 300 mg capsule 300 mg PO TID Qty: 270 3RF budesonide-formoterol [Symbicort] 160-4.5 mcg/actuation HFA aerosol inhaler 1 puff INH BID Qty: 10.2 5RF omeprazole 20 mg capsule,delayed release(DR/EC) See Rx Instructions .ROUTE .COMPLEX Qty: 90 3RF Dose Instruction: TAKE ONE CAPSULE BY MOUTH ONCE DAILY Rx Instructions: TAKE ONE CAPSULE BY MOUTH ONCE DAILY bupropion HCl 150 mg tablet extended release 24 hr 150 mg PO QAM Qty: 90 3RF albuterol sulfate [Ventolin HFA] 90 mcg/actuation HFA aerosol inhaler 2 puff INHALATION QID PRN (Reason: Bronchodilation) Qty: 8.5 5RF alendronate [Fosamax] 70 mg tablet 70 mg PO MO Qty: 12 1RF oxycodone-acetaminophen 10-325 mg tablet 1 tab PO Q6H PRN (Reason: Pain) Qty: 120 0RF hydroxyzine HCl 10 mg tablet See Rx Instructions .ROUTE .COMPLEX Qty: 30 1RF Rx Instructions: 1-2 tabs PO qhs prn sleep; metoprolol succinate 100 mg tablet extended release 24 hr 100 mg PO QAM duloxetine [Cymbalta] 30 mg capsule,delayed release(DR/EC) 30 mg PO QAM Rx Instructions: Take together with 60 mg cap for TDD 90 mg. duloxetine 60 mg capsule,delayed release(DR/EC) 60 mg PO QAM Rx Instructions: Take together with 30 mg cap for TDD 90 mg. Spiriva Respimat 2.5 mcg/actuation mist 2 puff INH QAM ibuprofen [Advil] 200 mg Tablet 400 mg PO Q6H PRN (Reason: Pain) Excedrin Extra Strength 250-250-65 mg Tablet 1 - 2 tab PO Q6H PRN (Reason: Pain) carisoprodol [Soma] 350 mg tablet 350 mg PO BID PRN (Reason: muscle pain) Discharge Orders: Discharge Order (Routine); Ordered 04/16/22 Ordered By: Gabriel Rick Admission Data Admit Date/Time: 04/15/22 16:00 Attending Provider: Gabriel Rick Admit Provider: Gabriel Rikc Primary Care Provider: Kala Yarbrough
[2022-04-16] MEDS ORDERED: dexAMETHasone 4 MG TAB PO SCH (08:00)
[2022-04-16] MEDS: GABAPENTIN 300 MG CAP PO SCH ×2 (08:48→13:46)
[2022-04-16] MEDS: DOCUSATE SODIUM 100 MG CAP PO SCH (08:49)
[2022-04-16] MEDS: ASPIRIN 81 MG ECTAB PO SCH (08:49)
[2022-04-16] MEDS ORDERED: DULoxetine HCL 30 MG CAP PO SCH (09:00)
[2022-04-16] MEDS ORDERED: MULTIVITAMIN TAB PO SCH (09:00)
[2022-04-16] MEDS ORDERED: DULoxetine HCL 60 MG CAP PO SCH (09:00)
[2022-04-16] MEDS ORDERED: FLUTICASONE/VILANTEROL 200/25MCG 14 PUFFS/INHALER INH SCH (09:00)
[2022-04-16] MEDS ORDERED: METOPROLOL SUCC 50MG EXT REL TAB PO SCH (09:00)
[2022-04-16] MEDS ORDERED: buPROPion XL 150 MG TABCR PO SCH (09:00)
[2022-04-16] MEDS ORDERED: UMECLIDINIUM BROMIDE 62.5MCG/BLISTER 7 PUFFS/INHALER INH SCH (09:00)
[2022-04-18] MEDS ORDERED: ALENDRONATE SODIUM 70 MG TAB PO SCH (06:30)
== END 2022-04-16 14:53 | disposition home health service (06) ==
LOC: 3E 11:07 → ASU 11:07

== ENCOUNTER 2022-04-18 18:15 | Observation (INO) ==
[2022-04-18] MEDS ORDERED: SODIUM CHLORIDE 0.9% 1000ML 1,000 ML IV STA (18:51)
--- NOTE | 2022-04-18 18:55 | Emergency Department Note ---
Impression & Plan Post-operative pain, S/P total knee replacement, Anemia ED Provider Note NAME: VEE COSME AGE: 66 SEX: F : 1955 ARRIVES VIA: Ambulance INFORMANT: Patient, ED PROVIDER(S): Moncho Altamirano DO CHIEF COMPLAINT: I need placement HPI: The patient is a 66-year-old female who is status post right total knee replacement who presented to the emergency department by ambulance because she is not doing well at home. Apparently the patient was discharged in our facility recently after a total knee replacement. She was supposed to be taken care of by her family and her but they are unable to care for her and she returns emergency department today requesting reevaluation for possible readmission for management of her rehab for her right knee replacement. She denies having any nausea or vomiting. She denies having any chest pain or difficulty breathing. She denies having any recent falls or injuries to the right knee. She states she has no bleeding from the right knee. She is notices no redness or swelling to the leg greater than when she was discharged. ROS: See above HPI for pertinent positives & negatives. A total of 10 systems reviewed and were otherwise negative. PAST MEDICAL HISTORY: See Below PAST SURGICAL HISTORY: See Below FAMILY HISTORY: See Below SOCIAL HISTORY: See Below HOME MEDICATIONS: See Below ALLERGIES: See Below VITALS: See Below PHYSICAL EXAMINATION: GENERAL: Patient is awake alert in no acute distress patient is resting comfortably and showing no signs of anxiety EYES: The conjunctivae are clear. The pupils are round and reactive. EARS, NOSE, MOUTH AND THROAT: The nose is without any evidence of any deformity. Mucous membranes are moist. Tongue is midline. NECK: The neck is nontender and supple. RESPIRATORY: Normal respiratory effort is noted there is no evidence of wheezing rhonchi or rales CARDIOVASCULAR: Tachycardic rate with regular rhythm was noted. There is no definite murmur. GASTROINTESTINAL: The abdomen is soft. Abdomen is nontender. MUSCULOSKELETAL/EXTREMITIES: Right knee is postsurgical in nature. Skin lizeth are in place. There is no erythema drainage or dehiscence. There was significant swelling over the right knee. SKIN: There is no obvious evidence of any rash. Trace pedal edema was noted bilaterally. Pulses were symmetric in both feet. NEUROLOGIC: Patient is awake alert and oriented x3 [employer]ISION MAKIN-year-old female who presented to the emergency department for an evaluation of difficulty ambulating status post total knee replacement. The patient was able to be discharged to home initially but returns to the emergency department because she is unable to manage her condition at home. She is not receiving much help from her significant other. The patient was treated with IV fluids in the emergency department. I discussed her condition with the on-call [facility] hospitalist. The patient may be a good candidate for inpatient rehab at this time however until she can be formally evaluated by Occupational Therapy and physical therapy this is not feasible from the emergency department. Triage Nursing notes reviewed. Prior medical records reviewed Vital Signs: reviewed and remarkable for cardia Differential diagnosis: Infection, dehydration, metabolic abnormality, hypo/hyperglycemia, electrolyte disturbance, anemia, hypoxia, cardiac sources, intracerebral event, toxicologic, neurologic, as well as other pathologies. ER treatment provided: See below Diagnostics interpreted by me: ECG: EKG was obtained in the emergency department. My interpretation is sinus tachycardia 127 bpm. There is no ectopy. There is no acute ST segment abnormalities noted. This was compared to a tracing from March 14, 2022. There is an increase in the rate otherwise no changes were noted. Cardiac Monitoring: An order was placed for continuous cardiac monitoring. The monitor shows a rate of 122 bpm with sinus tachycardia. Laboratory studies: As stated above and show below. Imaging studies: See below Consultation(s): I discussed this case with Dr. Holden who is on-call for the [facility] hospitalist group. Past Med/Surg History Medical History Allergic rhinitis Anxiety Asthma-COPD overlap syndrome Stable Cardiomyopathy LVEF 50% to 55% on Echo 04/14/22 -- Possibly tachycardia-induced per cardio records Cervical disc disease Chronic back pain Frequent unifocal PVCs GERD (gastroesophageal reflux disease) Hepatitis C Treated with Harvoni Hiatal hernia History of atrial fibrillation Remote hx 30 years ago per pt's (not indicated in 2020 cardio records) Hypertension Kidney stones Mixed conductive and sensorineural hearing loss Osteoporosis Fosamax started 09/2019 Vocal cord disease "flow volume loop suggest significant expiratory limb flattening which would be consistent with potential paroxysmal vocal cord dysfunction" per pulmonary review of PFTs from 06/2020 Surgical History History of bilateral cataract extraction History of bilateral tubal ligation History of colonoscopy History of cystoscopy History of esophagogastroduodenoscopy (EGD) History of foot surgery History of lithotripsy History of myringotomy R/L History of neck surgery History of open reduction and internal fixation (ORIF) procedure left foot (+ plate) History of placement of ear tubes History of sinus surgery History of tonsillectomy and adenoidectomy Status post cervical spinal fusion Status post correction of deviated nasal septum Status post cystoscopy with ureteral stent placement Status post thoracotomy L lung with biopsy (negative) Family History Father Family history of diabetes mellitus Hypertension Coronary heart disease Prostate cancer Cancer Heart disease Mother Hypertension COPD (chronic obstructive pulmonary disease) Aunt Asthma Allergic rhinitis Hypertension Heart disease Other No family history of allergies No family history of bleeding disorder Denies family history of Hearing loss Stroke Social History Smoking Status: Never smoker Tobacco Type: Cigarettes Number of Years Since Quit: 40; Second Hand Exposure: Yes (SPOUSE SMOKES); Hx Alcohol Use: Yes Alcohol type: beer Hx Substance Use: No Preferred Language: Mohawk Communication Ability: Effective Material Movers Required: No Beliefs That Will Affect Care: None marital status: Current Living Situation: Spouse current occupational status: retired How many Children do You have: 3 Feels Safe at Home: Yes caffeine: Yes Dental Care, Regularly: Yes Physical Activity Frequency: Does not Exercise Seatbelt Use: always Assistive Devices: None Allergies Allergies Allergy/AdvReac Type Severity Reaction Status Date / Time Horse/Equine Containing Allergy Unknown Skin test Verified 04/18/22 20:16 Products positive Home Meds Home Medications Medication Instructions Recorded Confirmed [id number] 250 1 - 2 tab PO Q6H PRN Pain 03/08/22 04/18/22 mg-250 mg-65 mg tablet (Excedrin Extra Strength) duloxetine 30 mg capsule,delayed 30 mg PO QAM 03/08/22 04/18/22 release (Cymbalta) duloxetine 60 mg capsule,delayed 60 mg PO QAM 03/08/22 04/18/22 release ibuprofen 200 mg tablet (Advil) 400 mg PO Q6H PRN Pain 03/08/22 04/18/22 metoprolol succinate 100 mg 100 mg PO QAM 03/08/22 04/18/22 tablet,extended release 24 hr tiotropium bromide 2.5 2 puff inhalation QAM 03/08/22 04/18/22 mcg/actuation mist for inhalation (Spiriva Respimat) carisoprodol 350 mg tablet (Soma) 350 mg PO BID PRN muscle pain 04/15/22 04/18/22 alendronate 70 mg tablet (Fosamax) 70 mg PO WK 04/18/22 04/18/22 bisacodyl 5 mg tablet,delayed 10 mg PO DAILY PRN Constipation 04/18/22 04/18/22 release hydroxyzine HCl 10 mg tablet 10 - 20 mg PO HS PRN Sleep 04/18/22 04/18/22 omeprazole 20 mg capsule,delayed 20 mg PO QAM 04/18/22 04/18/22 release Previous Rx's Medication Instructions Recorded albuterol sulfate 2.5 mg/3 mL 2.5 mg (3 mL) inhalation Q4H PRN 04/07/20 (0.083 %) solution for nebulization Shortness Of Breath Or Wheezing #150 mL montelukast 10 mg tablet 10 mg PO HS 1 month #30 tabs 06/16/21 (Singulair) gabapentin 300 mg capsule 300 mg PO TID #270 caps 08/05/21 (Neurontin) budesonide-formoterol HFA 160 1 puff inhalation BID #10.2 grams 09/23/21 mcg-4.5 mcg/actuation aerosol inhaler (Symbicort) bupropion HCl 150 mg 24 hr tablet, 150 mg PO QAM #90 tabs 01/13/22 extended release albuterol sulfate 90 mcg/actuation 2 puff inhalation QID PRN 02/07/22 aerosol inhaler (Ventolin HFA) Bronchodilation #8.5 grams oxycodone-acetaminophen 10 mg-325 1 tab PO Q6H PRN Pain #120 tabs 04/12/22 mg tablet aspirin 81 mg tablet,delayed 81 mg PO BID #84 tabs 04/15/22 release (Adult Aspirin Regimen) Results & Data (ED) Vital Signs Vital Signs - 24 hr 04/18/22 18:19 04/18/22 19:05 04/18/22 19:07 Pulse Rate 120 H Pulse Rate [Apical] 120 H Respiratory Rate 22 17 Respiratory Effort / Characteristics Non-Labored Spontaneous Respiratory Depth Normal Respiratory Pattern Regular Blood Pressure [Right Arm] 134/87 Blood Pressure Mean [Right Arm] 102 Pulse Oximetry 97 98 Oxygen Delivery Method Room Air Room Air Sepsis Recent Fever Within 48 Hours No Sepsis New/Unexplained Change in Mental Status No Sepsis Action Taken by Nursing No Action Required Home Medications Current Medication List: was personally reviewed by me Laboratory Data Attestation: I reviewed the patient's lab results. Result diagrams: 04/18/22 19:04/18/22 19:01 Lab Results 04/18/22 04/18/22 04/18/22 Range/Units 19: 19: 19:16 WBC 9.84 (4.8-10.8) K/ul RBC 3.38 L (3.93-5.22) M/uL Hgb 9.8 L (12.0-16.0) g/dl Hct 31.4 L (34.1-44.9) % MCV 92.9 (80.0-100.0) fL MCH 29.0 (25.0-34.0) pg MCHC 31.2 L (32.0-36.0) g/dL RDW Std Deviation 52.1 H (36.4-46.3) fL RDW Coeff of Amelia 15.4 H (11.5-14.5) % Plt Count 186 (130-400) K/uL MPV 10.7 (9.4-12.3) fL Immature Gran % (Auto) 0.5 % Neut % (Auto) 81.9 % Lymph % (Auto) 10.1 % Dawes % (Auto) 7.2 % Eos % (Auto) 0.0 % Baso % (Auto) 0.3 % Neut # (Auto) 8.06 H (1.4-6.5) K/uL Lymph # (Auto) 0.99 L (1.2-3.4) K/uL Dawes # (Auto) 0.71 (0.24-0.82) K/uL Eos # (Auto) 0.00 (0-0.50) K/uL Baso # (Auto) 0.03 (0-0.2) K/uL Immature Gran # (Auto) 0.05 H (0.00-0.02) K/uL Sodium 136 (136-145) mmol/L Potassium 3.5 (3.5-5.1) mmol/L Chloride 104 (98-107) mmol/L Carbon Dioxide 22 (21-32) mmol/L Anion Gap 10 (3-11) BUN 9 (6-23) mg/dl Creatinine 0.55 L (0.6-1.2) mg/dl Est Cr Clr Drug Dosing Not Reportable Est GFR ( Amer) 114.1 ml/min Est GFR (Non-Af Amer) 98.4 ml/min BUN/Creatinine Ratio 16.4 (10-20) Glucose 95 (70-99(Fasting)) mg/dl Calcium 8.5 (8.5-10.1) mg/dl Total Bilirubin 0.5 (0.2-1.0) mg/dl AST 19 (13-39) U/L ALT 7 (7-52) U/L Alkaline Phosphatase 125 H (34-104) U/L Total Protein 6.7 (6.0-8.3) gm/dl Albumin 3.0 L (3.4-5.0) gm/dl Globulin 3.7 (2.5-4.0) gm/dl Albumin/Globulin Ratio 0.8 L (0.9-2) Lipase 18 (11-82) U/L Urine Color Urine Appearance (Clear) Urine pH (4.5-7.5) Ur Specific Meredith (1.000-1.030) Urine Protein (Negative) Urine Glucose (UA) (Negative) Urine Ketones (Negative) Urine Blood (Negative) Urine Nitrite (Negative) Urine Bilirubin (Negative) Urine Urobilinogen (Negative) Ur Leukocyte Esterase (Negative) Urine WBC (Auto) (0-5) /hpf Urine RBC (Auto) (0-4) /hpf U Hyaline Cast (Auto) (0-5) /lpf U Epithel Cells (Auto) (0-5) /lpf Urine Bacteria (Auto) (Negative) Urine Yeast SARS-CoV-2, RNA, NAAT NEGATIVE (NEGATIVE) 04/18/22 Range/Units 19:23 WBC (4.8-10.8) K/ul RBC (3.93-5.22) M/uL Hgb (12.0-16.0) g/dl Hct (34.1-44.9) % MCV (80.0-100.0) fL MCH (25.0-34.0) pg MCHC (32.0-36.0) g/dL RDW Std Deviation (36.4-46.3) fL RDW Coeff of Amelia (11.5-14.5) % Plt Count (130-400) K/uL MPV (9.4-12.3) fL Immature Gran % (Auto) % Neut % (Auto) % Lymph % (Auto) % Dawes % (Auto) % Eos % (Auto) % Baso % (Auto) % Neut # (Auto) (1.4-6.5) K/uL Lymph # (Auto) (1.2-3.4) K/uL Dawes # (Auto) (0.24-0.82) K/uL Eos # (Auto) (0-0.50) K/uL Baso # (Auto) (0-0.2) K/uL Immature Gran # (Auto) (0.00-0.02) K/uL Sodium (136-145) mmol/L Potassium (3.5-5.1) mmol/L Chloride (98-107) mmol/L Carbon Dioxide (21-32) mmol/L Anion Gap (3-11) BUN (6-23) mg/dl Creatinine (0.6-1.2) mg/dl Est Cr Clr Drug Dosing Est GFR ( Amer) ml/min Est GFR (Non-Af Amer) ml/min BUN/Creatinine Ratio (10-20) Glucose (70-99(Fasting)) mg/dl Calcium (8.5-10.1) mg/dl Total Bilirubin (0.2-1.0) mg/dl AST (13-39) U/L ALT (7-52) U/L Alkaline Phosphatase (34-104) U/L Total Protein (6.0-8.3) gm/dl Albumin (3.4-5.0) gm/dl Globulin (2.5-4.0) gm/dl Albumin/Globulin Ratio (0.9-2) Lipase (11-82) U/L Urine Color Yellow Urine Appearance Clear (Clear) Urine pH 7.5 (4.5-7.5) Ur Specific Meredith 1.017 (1.000-1.030) Urine Protein Trace H (Negative) Urine Glucose (UA) Negative (Negative) Urine Ketones 1+ H (Negative) Urine Blood Trace H (Negative) Urine Nitrite Negative (Negative) Urine Bilirubin Negative (Negative) Urine Urobilinogen Negative (Negative) Ur Leukocyte Esterase 2+ H (Negative) Urine WBC (Auto) 1-5 (0-5) /hpf Urine RBC (Auto) 5-10 H (0-4) /hpf U Hyaline Cast (Auto) 0 (0-5) /lpf U Epithel Cells (Auto) 20-30 H (0-5) /lpf Urine Bacteria (Auto) 1+ H (Negative) Urine Yeast Not Reportable SARS-CoV-2, RNA, NAAT (NEGATIVE) Administered Medications Discontinued Medications Acetaminophen (Acetaminophen 1000 Mg/100 Ml Iv) 1,000 mg IV NOW STA Stop: 04/18/22 19:42 Last Admin: 04/18/22 19:55 Dose: 1,000 mg Documented By: MED Al Hydrox/Mg Hydrox/Simethicone 18 ml/ Lidocaine HCl 6 ml/ BARCODE IDENTIFIER 1 each 0 ml PO ONE ONE Stop: 04/18/22 19:42 Last Admin: 04/18/22 20:22 Dose: 10 ml Documented By: MED Sodium Chloride (Nss 1000ml) 1,000 mls @ 999 mls/hr IV .Q1H1M STA Stop: 04/18/22 19:51 Last Admin: 04/18/22 19:54 Dose: 999 mls/hr Documented By: MED Famotidine 20 mg/ Syringe 5 mls @ 2.5 mls/min IV NOW ONE Stop: 04/18/22 19:42 Last Admin: 04/18/22 21:30 Dose: 2.5 mls/min Documented By: MED Imaging Data Radiologist's Impression: Chest X-Ray 04/18/22 18:55 SINGLE VIEW CHEST CLINICAL HISTORY: Preadmission testing. Right knee arthroplasty. FINDINGS: An AP, portable, upright chest radiograph is compared to study dated 03/14/2022. The cardiomediastinal silhouette is unremarkable noting atherosclerotic calcification of the thoracic aorta. Suture material projects over the left upper lobe. The lungs and pleural spaces are clear. No pneumothorax is seen. The skeletal structures are osteopenic. There are healed bilateral rib fractures. Fusion hardware is noted in the lower cervical spine. IMPRESSION: No active disease in the chest. ACT 112: Negative or not required by law. Electronically signed by: Jose Juan García M.D. 04/18/2022 8:02 PM Discharge Plan Visit Data Chief Complaint: GI Assessment ED Provider: Moncho Altamirano Discharge Problem: Post-operative pain, S/P total knee replacement, Anemia Patient Disposition: Admitted As Inpatient Discharge Instructions Interventions: ED Discharge Assessment Last Done: 04/18/22 22:52
[2022-04-18 19:11] LABS: Basophils # (auto) 0.03 K/uL (0-0.2); Basophils % (auto) 0.3 %; Hematocrit (blood only) 31.4 % (34.1-44.9); Hemoglobin 9.8 g/dl (12.0-16.0); Immature Granulocytes # (auto) 0.05 K/uL (0.00-0.02); Immature Granulocytes % (auto) 0.5 %; Lymphocytes # (auto) 0.99 K/uL (1.2-3.4); Lymphocytes % (auto) 10.1 %; Mean Corpuscular Hgb Conc 31.2 g/dL (32.0-36.0); Mean Corpuscular Volume 92.9 fL (80.0-100.0); Mean Platelet Volume 10.7 fL (9.4-12.3); Monocytes # (auto) 0.71 K/uL (0.24-0.82); Monocytes % (auto) 7.2 %; Neutrophils # (auto) 8.06 K/uL (1.4-6.5); Neutrophils % (auto) 81.9 %; Platelet Count 186 K/uL (130-400); RDW Coefficient of Variation 15.4 % (11.5-14.5); RDW Standard Deviation 52.1 fL (36.4-46.3); Red Blood Count 3.38 M/uL (3.93-5.22); White Blood Count 9.84 K/ul (4.8-10.8)
[2022-04-18 19:35] LABS: Alanine Aminotransferase 7 U/L (7-52); Albumin Globulin Ratio 0.8 (0.9-2); Alkaline Phosphatase 125 U/L (34-104); Anion Gap 10 (3-11); Aspartate Aminotransferase 19 U/L (13-39); BUN Creatinine Ratio 16.4 (10-20); Bilirubin,Total 0.5 mg/dl (0.2-1.0); Blood Urea Nitrogen 9 mg/dl (6-23); Calcium 8.5 mg/dl (8.5-10.1); Carbon Dioxide 22 mmol/L (21-32); Chloride 104 mmol/L (98-107); Est GFR (African American) 114.1 ml/min; Est GFR (Non-African American) 98.4 ml/min; Globulin 3.7 gm/dl (2.5-4.0); Glucose 95 mg/dl (70-99(Fasting)); Lipase 18 U/L (11-82); Potassium 3.5 mmol/L (3.5-5.1); Sodium 136 mmol/L (136-145); Total Protein 6.7 gm/dl (6.0-8.3)
[2022-04-18] MEDS ORDERED: FAMOTIDINE 20 MG in SYRINGE 3 ML IV ONE (19:41)
[2022-04-18] MEDS ORDERED: ACETAMINOPHEN 1000 MG/100 ML IV IV STA (19:41)
[2022-04-18] MEDS ORDERED: ALUMINUM/MAGNESIUM SUSP 18 ML, LIDOCAINE VISCOUS 2% SOLN 6 ML, BARCODE IDENTIFIER 1 EACH PO ONE (19:41)
--- NOTE | 2022-04-18 19:50 | History & Physical Report ---
Date of Service April 18, 2022 Assessment & Plan (1) Post-operative pain: Plan: Jayla Najera is a 66yo female s/p right TKA performed on 04/15/22. Surgery was well tolerated, patient able to participate in therapy and was ultimately discharged in stable condition on 04/16/22. Since then she has been having significant difficulty at home. She has not been up and moving or taking her medications as prescribed. -Observation to medical -Pain control with Tylenol and Oxy-IR PRN -Dulcolax PRN constipation -ASA 81mg po BID for DVT prophylaxis -PT/OT evaluation for possible placement needs (2) S/P total knee replacement: Plan: Patient is POD #3. Reports she has been having difficulty at home -Pain control as above, Tylenol and Oxycodone PRN -Zofran PRN -PT/OT evaluation re: placement/rehab needs (3) GERD (gastroesophageal reflux disease): Plan: Patient has been complaining of worsening GERD symptoms. Given a GI cocktail and Pepcid IV in the ER -Continue Pepcid 40mg po daily -Check troponin x 1 -Telemetry monitoring (4) Hypertension: Plan: Blood pressure stable presently, 130/90 -Continue Metoprolol 100mg po daily -Monitor (5) Cardiomyopathy: Plan: History of mild cardiomyopathy with wall motion abnormalities - possibly secondary to tachycardia, sustained tachycardia with frequent PVCs. Patient appears compensated. She follows with Cardiology -Monitor -Continue Metoprolol (6) Asthma-COPD overlap syndrome: Plan: No cough, SOB or wheeze -Continue Albuterol PRN -Continue Fluticasone/Vilanterol -Continue Umeclidinium -Continue Singulair (7) Anxiety: Plan: Chronic. -Continue Welbutrin -Continue Cymbalta F/E/N - Heplock. Check Mg and Po4 x 1, Regular diet as tolerated Ppx - SCDs Code - DNR/DNI per discussion with patient Dispo - Observation to medical with telemetry History of Present Illness Chief Complaint: knee pain, unable to care for herself at home Primary Care Provider: Kala Yarbrough MD Shahnaz Najera is a 66yo female with history of asthma/COPD, GERD and HTN presenting from home with difficulty caring for herself. She has longstanding h istory of osteoarthritis and progressive right knee pain and had a right TKA performed on 04/15/[address] Rick. The surgery was well tolerated with no complications identified. She had spinal anesthesia. She was discharged home on 04/16/22 in stable condition. She was instructed to continue ASA 81mg po BID for DVT prophylaxis. Since she has been home she has been having difficulty with ambulation and caring for herself. She has not been taking her medications as prescribed. Her is at home with her but has not been able to help has as much as she has needed. She reports that she has had significant discomfort in her knee. She has also been having more epigastric discomfort, heartburn symptoms and belching. She has had nausea but no vomiting as well as chills. ER Course: NSS, Tylenol 1gm, GI Cocktail, Pepcid 20mg IV, Oxycodone 5mg Allergies Allergy/AdvReac Type Severity Reaction Status Date / Time Horse/Equine Containing Allergy Unknown Skin test Verified 04/18/22 20:16 Products positive Home Medications Medication Instructions Recorded Confirmed Type albuterol sulfate 2.5 mg/3 mL 2.5 mg (3 mL) inhalation Q4H PRN 04/07/20 04/18/22 Rx (0.083 %) solution for nebulization Shortness Of Breath Or Wheezing #150 mL montelukast 10 mg tablet 10 mg PO HS 1 month #30 tabs 06/16/21 04/18/22 Rx (Singulair) gabapentin 300 mg capsule 300 mg PO TID #270 caps 08/05/21 04/18/22 Rx (Neurontin) budesonide-formoterol HFA 160 1 puff inhalation BID #10.2 grams 09/23/21 04/18/22 Rx mcg-4.5 mcg/actuation aerosol inhaler (Symbicort) bupropion HCl 150 mg 24 hr tablet, 150 mg PO QAM #90 tabs 01/13/22 04/18/22 Rx extended release albuterol sulfate 90 mcg/actuation 2 puff inhalation QID PRN 02/07/22 04/18/22 Rx aerosol inhaler (Ventolin HFA) Bronchodilation #8.5 grams exdvmnr-qdlgvgxikmvlo-mdjhjnsk 250 1 - 2 tab PO Q6H PRN Pain 03/08/22 04/18/22 History mg-250 mg-65 mg tablet (Excedrin Extra Strength) duloxetine 30 mg capsule,delayed 30 mg PO QAM 03/08/22 04/18/22 History release (Cymbalta) duloxetine 60 mg capsule,delayed 60 mg PO QAM 03/08/22 04/18/22 History release ibuprofen 200 mg tablet (Advil) 400 mg PO Q6H PRN Pain 03/08/22 04/18/22 History metoprolol succinate 100 mg 100 mg PO QAM 03/08/22 04/18/22 History tablet,extended release 24 hr tiotropium bromide 2.5 2 puff inhalation QAM 03/08/22 04/18/22 History mcg/actuation mist for inhalation (Spiriva Respimat) oxycodone-acetaminophen 10 mg-325 1 tab PO Q6H PRN Pain #120 tabs 04/12/22 04/18/22 Rx mg tablet aspirin 81 mg tablet,delayed 81 mg PO BID #84 tabs 04/15/22 04/18/22 Rx release (Adult Aspirin Regimen) carisoprodol 350 mg tablet (Soma) 350 mg PO BID PRN muscle pain 04/15/22 04/18/22 History alendronate 70 mg tablet (Fosamax) 70 mg PO WK 04/18/22 04/18/22 History bisacodyl 5 mg tablet,delayed 10 mg PO DAILY PRN Constipation 04/18/22 04/18/22 History release hydroxyzine HCl 10 mg tablet 10 - 20 mg PO HS PRN Sleep 04/18/22 04/18/22 His tory omeprazole 20 mg capsule,delayed 20 mg PO QAM 04/18/22 04/18/22 History release Past Med/Surg History Medical History Allergic rhinitis Anxiety Asthma-COPD overlap syndrome Stable Cardiomyopathy LVEF 50% to 55% on Echo 04/14/22 -- Possibly tachycardia-induced per cardio records Cervical disc disease Chronic back pain Frequent unifocal PVCs GERD (gastroesophageal reflux disease) Hepatitis C Treated with Harvoni Hiatal hernia History of atrial fibrillation Remote hx 30 years ago per pt's (not indicated in 2020 cardio records) Hypertension Kidney stones Mixed conductive and sensorineural hearing loss Osteoporosis Fosamax started 09/2019 Vocal cord disease "flow volume loop suggest significant expiratory limb flattening which would be consistent with potential paroxysmal vocal cord dysfunction" per pulmonary review of PFTs from 06/2020 Surgical History History of bilateral cataract extraction History of bilateral tubal ligation History of colonoscopy History of cystoscopy History of esophagogastroduodenoscopy (EGD) History of foot surgery History of lithotripsy History of myringotomy R/L History of neck surgery History of open reduction and internal fixation (ORIF) procedure left foot (+ plate) History of placement of ear tubes History of sinus surgery History of tonsillectomy and adenoidectomy Status post cervical spinal fusion Status post correction of deviated nasal septum Status post cystoscopy with ureteral stent placement Status post thoracotomy L lung with biopsy (negative) Family History Father Family history of diabetes mellitus Hypertension Coronary heart disease Prostate cancer Cancer Heart disease Mother Hypertension COPD (chronic obstructive pulmonary disease) Aunt Asthma Allergic rhinitis Hypertension Heart disease Other No family history of allergies No family history of bleeding disorder Denies family history of Hearing loss Stroke Social History Smoking Status: Never smoker Tobacco Type: Cigarettes Number of Years Since Quit: 40; Second Hand Exposure: Yes (SPOUSE SMOKES); Hx Alcohol Use: Yes Alcohol type: beer Hx Substance Use: No Preferred Language: Austrian Communication Ability: Effective Hair Designer Required: No Beliefs That Will Affect Care: None marital status: Current Living Situation: Spouse current occupational status: retired How many Children do You have: 3 Feels Safe at Home: Yes caffeine: Yes Dental Care, Regularly: Yes Physical Activity Frequency: Does not Exercise Seatbelt Use: always Assistive Devices: None Review of Systems Review of Systems: All systems reviewed & are unremarkable except as noted in HPI & below Physical Exam Physical Exam: General: patient tearful, resting comfortably, NAD, non-toxic in appearance, AA&O x 4 Skin: warm, dry, no rashes or lesions HEENT: NC/AT, PERRL, EOMI, anicteric sclera, conjunctiva without injection, external ear normal to inspection and nontender, nares patent, moist mucus membranes, dentition intact, no oropharyngeal lesions, neck supple, trachea midline, no LAD, no thyromegaly, no JVD Heart: +S1/S2, regular, no m/r/g, reproducible chest discomfort with deep palpation of ribs and sternum Lungs: equal air entry bilaterally, no rales/rhonchi/wheezes Abd: +BS, soft, NT/ND, no masses/organomegaly/ascites Ext: warm, 2+ pulses in UE/LE bilaterally, no clubbing/cyanosis or edema, right knee with lizeth in place, surgical wound well approximated with no bleeding, drainage or dehiscence, swelling in lateral portion of knee Neuro: nonfocal, patient AA&O x 4, speech intact, no facial droop, moving all extremities on command with equal strength 5/5 Results & Data Results & Data ([facility]) Vital Signs (Past 12 Hours) Vital Signs Pulse Pulse Resp BP Pulse Ox O2 Del Method 04/18/22 19:07 120 H 17 98 Room Air 04/18/22 19:05 120 H 22 134/87 97 Room Air Laboratory Results Laboratory Results WBC 9.84 K/ul (4.8-10.8) 04/18/22 19: RBC 3.38 M/uL (3.93-5.22) L 04/18/22 19: Hgb 9.8 g/dl (12.0-16.0) L 04/18/22 19: Hct 31.4 % (34.1-44.9) L 04/18/22 19: MCV 92.9 fL (80.0-100.0) 04/18/22 19: MCH 29.0 pg (25.0-34.0) 04/18/22 19: MCHC 31.2 g/dL (32.0-36.0) L 04/18/22 19: RDW Std Deviation 52.1 fL (36.4-46.3) H 04/18/22 19: RDW Coeff of [place] 15.4 % (11.5-14.5) H 04/18/22 19: Plt Count 186 K/uL (130-400) 04/18/22 19: MPV 10.7 fL (9.4-12.3) 04/18/22 19: Immature Gran % (Auto) 0.5 % 04/18/22 19: Neut % (Auto) 81.9 % 04/18/22 19: Lymph % (Auto) 10.1 % 04/18/22 19: [place] % (Auto) 7.2 % 04/18/22 19: Eos % (Auto) 0.0 % 04/18/22 19:01 Baso % (Auto) 0.3 % 04/18/22 19: Neut # (Auto) 8.06 K/uL (1.4-6.5) H 04/18/22 19: Lymph # (Auto) 0.99 K/uL (1.2-3.4) L 04/18/22 19: [place] # (Auto) 0.71 K/uL (0.24-0.82) 04/18/22 19: Eos # (Auto) 0.00 K/uL (0-0.50) 04/18/22 19: Baso # (Auto) 0.03 K/uL (0-0.2) 04/18/22 19: Immature Gran # (Auto) 0.05 K/uL (0.00-0.02) H 04/18/22 19: Sodium 136 mmol/L (136-145) 04/18/22 19: Potassium 3.5 mmol/L (3.5-5.1) 04/18/22: Chloride 104 mmol/L (98-107) 04/18/22 19: Carbon Dioxide 22 mmol/L (21-32) 04/18/22 19: Anion Gap 10 (3-11) 04/18/22: BUN 9 mg/dl (6-23) 04/18/22: Creatinine 0.55 mg/dl (0.6-1.2) L 04/18/22: Est Cr Clr Drug Dosing Not Reportable 04/18/22: Est GFR ( Amer) 114.1 ml/min 04/18/22 19: Est GFR (Non-Af Amer) 98.4 ml/min 04/18/22 19: BUN/Creatinine Ratio 16.4 (10-20) 04/18/22 19: Glucose 95 mg/dl (70-99(Fasting)) 04/18/22 19: Calcium 8.5 mg/dl (8.5-10.1) 04/18/22 19: Total Bilirubin 0.5 mg/dl (0.2-1.0) 04/18/22 19: AST 19 U/L (13-39) 04/18/22 19: ALT 7 U/L (7-52) 04/18/22 19: Alkaline Phosphatase 125 U/L (34-104) H 04/18/22 19: Total Protein 6.7 gm/dl (6.0-8.3) 04/18/22 19: Albumin 3.0 gm/dl (3.4-5.0) L 04/18/22 19: Globulin 3.7 gm/dl (2.5-4.0) 04/18/22 19: Albumin/Globulin Ratio 0.8 (0.9-2) L 04/18/22 19: Lipase 18 U/L (11-82) 04/18/22 19: Urine Color Yellow 04/18/22: Urine Appearance Clear (Clear) 04/18/22: Urine pH 7.5 (4.5-7.5) 04/18/22: Ur Specific [place] 1.017 (1.000-1.030) 04/18/22: Urine Protein Trace (Negative) H 04/18/22: Urine Glucose (UA) Negative (Negative) 04/18/22: Urine Ketones 1+ (Negative) H 04/18/22: Urine Blood Trace (Negative) H 04/18/22: Urine Nitrite Negative (Negative) 04/18/22: Urine Bilirubin Negative (Negative) 04/18/22: Urine Urobilinogen Negative (Negative) 04/18/22: Ur Leukocyte Esterase 2+ (Negative) H 04/18/22: Urine WBC (Auto) 1-5 /hpf (0-5) 04/18/22: Urine RBC (Auto) 5-10 /hpf (0-4) H 04/18/22: U Hyaline Cast (Auto) 0 /lpf (0-5) 04/18/22: U Epithel Cells (Auto) 20-30 /lpf (0-5) H 09/19/22 19:23 Urine Bacteria (Auto) 1+ (Negative) H 04/18/22 19:23 Urine Yeast Not Reportable 04/18/22 19:23 SARS-CoV-2, RNA, NAAT NEGATIVE (NEGATIVE) 04/18/22 19:16 Impressions Chest X-Ray 04/18/22 18:55 SINGLE VIEW CHEST CLINICAL HISTORY: Preadmission testing. Right knee arthroplasty. FINDINGS: An AP, portable, upright chest radiograph is compared to study dated 03/14/2022. The cardiomediastinal silhouette is unremarkable noting atherosclerotic calcification of the thoracic aorta. Suture material projects over the left upper lobe. The lungs and pleural spaces are clear. No pneumothorax is seen. The skeletal structures are osteopenic. There are healed bilateral rib fractures. Fusion hardware is noted in the lower cervical spine. IMPRESSION: No active disease in the chest. ACT 112: Negative or not required by law. Electronically signed by: Jose Juan García M.D. 04/18/2022 8:02 PM Code Status & VTE Plan VTE Prophylaxis Plan VTE Prophylaxis will be ordered: Yes PG Care Time/CCT Total # of Minutes Spent Total Time Spent with Patient: Total time spent is greater than 50% in coordination of care (as documented) at patient's floor/unit and/or counseling patient: Coding Level of Care Code INT OBSERVATION CARE 70M LVL 3 Diagnoses Post-operative pain G89.18 S/P total knee replacement Z96.651 Laterality: right GERD (gastroesophageal reflux disease) K21.9 Hypertension I10 Cardiomyopathy I42.9 Cardiomyopathy type: unspecified Asthma-COPD overlap syndrome J44.9 Anxiety F41.9 (1) S/P total knee replacement Laterality: right Qualified Code(s): Z96.651 - Presence of right artificial knee joint (2) Cardiomyopathy Cardiomyopathy type: unspecified Qualified Code(s): I42.9 - Cardiomyopathy, unspecified
--- NOTE | 2022-04-18 20:04 | XRay Report ---
SINGLE VIEW CHEST CLINICAL HISTORY: Preadmission testing. Right knee arthroplasty. FINDINGS: An AP, portable, upright chest radiograph is compared to study dated 03/14/2022. The cardiom ediastinal silhouette is unremarkable noting atherosclerotic calcification of the thoracic aorta. Sut ure material projects over the left upper lobe. The lungs and pleural spaces are clear. No pneumothor ax is seen. The skeletal structures are osteopenic. There are healed bilateral rib fractures. Fusion hardware is noted in the lower cervical spine. IMPRESSION: No active disease in the chest. ACT 112: Negative or not required by law. Electronically signed by: Jose Juan García M.D. 04/18/2022 8:02 PM
[2022-04-18 20:30] LABS: Appearance Urine Clear (Clear); Bacteria Urine Automated 1+ (Negative); Bilirubin Urine Negative (Negative); Blood Urine Trace (Negative); Cast Urine Automated 0 /lpf (0-5); Color Urine Yellow; Epithelial Cell Urine Auto 20-30 /lpf (0-5); Glucose Urine UA Negative (Negative); Ketones Urine 1+ (Negative); Leukocyte Esterase Urine 2+ (Negative); Nitrite Urine Negative (Negative); Specific Gravity Urine 1.017 (1.000-1.030); Urobilinogen Urine Negative (Negative); pH Urine 7.5 (4.5-7.5)
[2022-04-18 20:37] LABS: Protein Urine Trace (Negative)
[2022-04-18] MEDS ORDERED: hydrOXYzine HCl 10 MG TAB PO PRN (23:42)
[2022-04-18] MEDS ORDERED: ALBUTEROL HFA 8 GM INHALER INH PRN (23:42)
[2022-04-18] MEDS ORDERED: DOCUSATE SODIUM 100 MG CAP PO PRN (23:42)
[2022-04-18] MEDS ORDERED: bisacodyL 5 MG TABEC PO PRN (23:42)
[2022-04-19] MEDS: oxyCODONE HCL IR 5 MG TAB (IMMEDIATE RELEASE) PO PRN ×2 (00:06→06:31)
[2022-04-19] MEDS: ASPIRIN 81 MG ECTAB PO SCH ×3 (00:11→19:58)
[2022-04-19 00:31] LABS: D Dimer 1450 ug/L FEU (0-500)
[2022-04-19] MEDS ORDERED: OPTIRAY 300 500mL IV ONE (02:30)
[2022-04-19] MEDS: MAGNESIUM SULFATE / D5W 1 GM/100 ML BAG IV SCH ×2 (02:35→04:22)
[2022-04-19] MEDS: ONDANSETRON INJ 2 MG/ML 2 ML VIAL IV PRN ×2 (02:39→10:21)
[2022-04-19] MEDS: ACETAMINOPHEN 325 MG TAB PO PRN ×2 (05:12→09:33)
[2022-04-19 06:11] LABS: Hematocrit (blood only) 29.1 % (34.1-44.9); Hemoglobin 9.3 g/dl (12.0-16.0); Mean Corpuscular Hemoglobin 29.6 pg (25.0-34.0); Mean Corpuscular Volume 92.7 fL (80.0-100.0); Mean Platelet Volume 10.2 fL (9.4-12.3); Platelet Count 174 K/uL (130-400); RDW Coefficient of Variation 15.3 % (11.5-14.5); RDW Standard Deviation 51.6 fL (36.4-46.3); Red Blood Count 3.14 M/uL (3.93-5.22); White Blood Count 7.89 K/ul (4.8-10.8)
[2022-04-19 06:37] LABS: Albumin Level 2.7 gm/dl (3.4-5.0); BUN Creatinine Ratio 15.1 (10-20); Bilirubin Direct 0.1 mg/dl (0-0.2); Bilirubin,Total 0.4 mg/dl (0.2-1.0); Creatinine Clr Calc Pharmacy 87.9 ml/min; Est GFR (African American) 115.5 ml/min; Est GFR (Non-African American) 99.6 ml/min; Potassium 3.2 mmol/L (3.5-5.1); Total Protein 6.1 gm/dl (6.0-8.3)
[2022-04-19] MEDS: GABAPENTIN 300 MG CAP PO SCH ×3 (07:37→20:02)
[2022-04-19] MEDS: buPROPion XL 150 MG TABCR PO SCH (07:38)
[2022-04-19] MEDS: DULoxetine HCL 60 MG CAP PO SCH (07:38)
[2022-04-19] MEDS: FAMOTIDINE 40 MG TABLET PO SCH (07:38)
[2022-04-19] MEDS: METOPROLOL SUCC 50MG EXT REL TAB PO SCH (07:38)
[2022-04-19] MEDS: DULoxetine HCL 30 MG CAP PO SCH (07:38)
[2022-04-19] MEDS: FLUTICASONE/VILANTEROL 100/25MCG 14 PUFFS/INHALER INH SCH (07:39)
[2022-04-19] MEDS: UMECLIDINIUM BROMIDE 62.5MCG/BLISTER 7 PUFFS/INHALER INH SCH (07:39)
--- NOTE | 2022-04-19 08:18 | CT Scan Report ---
CT angio chest PE protocol CT DOSE: 216.05 mGy.cm HISTORY: 66 years-old Female with tachycardia, leg pain, elevated d dimer. Acute cough with shortne ss of breath TECHNIQUE: Multiple CTA images of the chest were obtained after the intravenous administration of 112 ml Optiray. Coronal and sagittal MIPS were obtained from the axial data set and were submitted for review. All measurements were obtained according to NASCET criteria. A dose lowering technique was u tilized adhering to the principles of ALARA. COMPARISON: Chest radiograph 04/18/2022, chest CT 01/14/2020 FINDINGS: CTA: The heart is normal in size without pericardial effusion. Mild to moderate coronary artery calcificat ions. Atherosclerosis of the thoracic aorta without aneurysm or dissection. Unremarkable pulmonary ar phan. No filling defects identified to suggest thromboembolic disease. CT CHEST: No thyroid nodule or pathologically enlarged lymph nodes identified. No pneumothorax, pleural effusio n, airspace consolidation or overt pulmonary edema. Mild subsegmental bibasilar atelectasis versus sc arring. Postoperative changes of the left lower lobe. Mild diffuse bronchial wall thickening. There a re no suspicious pulmonary nodules or masses identified. Air-fluid level of the midesophagus. Mild distal esophageal wall thickening with small hiatal hernia. Dilation of the biliary tree is similar to prior. Unremarkable soft tissues. No acute fracture. Ther e is partial bony fusion of the left posterolateral eighth and ninth ribs. IMPRESSION: 1. No pulmonary emboli identified. 2. Bronchial wall thickening suggestive of bronchitis or reactive airway disease. 3. Small hiatal hernia with mild nonspecific distal esophageal wall thickening. ACT 112: Negative or not required by law. The above report was generated using voice recognition software. It may contain grammatical, syntax o r spelling errors. Electronically signed by: Gustavo Esteban M.D. 04/19/2022 8:16 AM
[2022-04-19] MEDS ORDERED: MAGNESIUM SULFATE / D5W 1 GM/100 ML BAG IV ONE (08:36)
--- NOTE | 2022-04-19 08:36 | Hospitalist Progress Note ---
Date of Service April 19, 2022 Assessment & Plan (1) Post-operative pain: Plan: Jayla Najera is a 66yo female s/p right TKA performed on 04/15/22. Surgery was well tolerated, patient able to participate in therapy and was ultimately discharged in stable condition on 04/16/22. Since then she has been having significant difficulty at home. She has not been up and moving or taking her medications as prescribed. -Pain control with Tylenol and Oxy-IR PRN -Dulcolax PRN constipation -ASA 81mg po BID for DVT prophylaxis -PT/OT evaluation for possible rehab patient states she cannot manage her self at home consider metabolic encephalopathy from uti poa 60,000 gram-positive cocci's are seen in urine\ Consider toxic encephalopathy from medications (2) S/P total knee replacement: Plan: 04/15/22 . Reports she has been having difficulty at home -Pain control as above, Tylenol and Oxycodone PRN -Zofran PRN -PT/OT evaluation re: placement/rehab needs (3) GERD (gastroesophageal reflux disease): Plan: Patient has been complaining of worsening GERD symptoms. Given a GI cocktail and Pepcid IV in the ER -Continue Pepcid 40mg po daily -High-sensitivity troponins negative (4) Hypertension: Plan: Blood pressure stable presently, 130/90 -Continue Metoprolol 100mg po daily (5) Cardiomyopathy: Plan: History of mild cardiomyopathy with wall motion abnormalities - possibly second shanthi to tachycardia, sustained tachycardia with frequent PVCs. Patient appears compensated. She follows with Cardiology -Monitor -Continue Metoprolol (6) Asthma-COPD overlap syndrome: Plan: No cough, SOB or wheeze -Continue Albuterol PRN -Continue Fluticasone/Vilanterol -Continue Umeclidinium -Continue Singulair (7) Anxiety: Plan: Chronic. -Continue Welbutrin -Continue Cymbalta Ppx - SCDs Code - DNR/DNI per discussion with patient Dispo - Observation to medical with telemetry will need short-term rehab stay Admission and Anticipated Discharge Date Admission Date: April 18, 2022 Subjective pt is in good spirits, still weak and tired after surgery Review of Systems Review of Systems: Mild distress and fatigue no headache, no visual changes no speech or swallowing issues no chest pain, pressure or palpitations no shortness of breath, cough or wheezes no abdominal pain, nausea or vomiting, diarrhea or constipation no dysuria, hematuria or frequency Postoperative joint pain and erythema about incision no back pain, CVA tenderness or radicular pain no bruising, bleeding or rashes no focal signs of weakness or numbness or altered sensation no complaints of anxiety or depression.. Physical Exam Physical Exam: The patient appeared well nourished and normally developed. Vital signs as documented. Head exam is normocephalic atraumatic Neck is without JVD, thyromegaly, or carotid bruits. Lungs are clear to auscultation, no focal loss of breath sounds Cardiac exam, Rhythm is regular.. No murmurs, rubs or gallops. Abdominal exam reveals normal bowel sounds, soft non tender, no masses Patient's knee is slightly tender wound is well approximated only mild erythema which could be consistent with irritation and mild suprapatellar joint effusion Neurologic exam is alert and oriented, no focal loss of strength or sensation encephalopathy seems to be clearing Skin is without bruises or rashes Psychologically is without concerns for anxiety or depression.. Results & Data Results & Data ([facility]) Vital Signs (Past 12 Hours) Vital Signs Temp Pulse Pulse Pulse Resp BP BP 04/19/22 07:43 98.1 F 108 H 18 111/73 04/19/22 07:07 114 H 04/19/22 03:05 98.1 F 70 17 04/18/22 23:40 132 H 04/18/22 23:30 04/18/22 23:30 98.2 F 126 H 16 04/18/22 22:52 122 H 20 130/90 04/18/22 22:40 122 H 17 BP Pulse Ox O2 Del Method 04/19/22 07:43 96 Room Air 04/19/22 07:07 04/19/22 03:05 139/83 94 Room Air 04/18/22 23:40 04/18/22 23:30 Room Air 04/18/22 23:30 143/86 H 98 Room Air 04/18/22 22:52 Room Air 04/18/22 22:40 130/90 95 Room Air PG Care Time/CCT Total # of Minutes Spent Total Time Spent with Patient: Total time spent is greater than 50% in coordination of care (as documented) at patient's floor/unit and/or counseling patient: Coding Level of Care Code 68923 Subseq Hosp Care Lvl 2 Diagnoses Post-operative pain G89.18 S/P total knee replacement Z96.651 Laterality: right GERD (gastroesophageal reflux disease) K21.9 Hypertension I10 Cardiomyopathy I42.9 Cardiomyopathy type: unspecified Asthma-COPD overlap syndrome J44.9 Anxiety F41.9 (1) S/P total knee replacement Laterality: right Qualified Code(s): Z96.651 - Presence of right artificial knee joint (2) Cardiomyopathy Cardiomyopathy type: unspecified Qualified Code(s): I42.9 - Cardiomyopathy, unspecified
[2022-04-19] MEDS: POTASSIUM CHLORIDE CRTAB 20 MEQ TABCR PO SCH ×2 (09:07→20:02)
[2022-04-19] MEDS: ACETAMINOPHEN 500 MG TAB PO SCH ×2 (13:15→19:58)
--- NOTE | 2022-04-19 15:36 | Orthopedic Consultation ---
Date of Service April 19, 2022 Assessment & Plan (1) S/P total knee replacement: She was readmitted last night. She was having worsening GERD symptoms, being managed by the hospitalist service. Denies any symptoms presently. No chest pain. I reassured her that her incision and knee look ok for POD #4. Unfo rtunately, she just doesn't have the assistance needed at home and will need some rehab. Continue pain control, PT/OT. Will discuss with Dr. Rick. History of Present Illness Reason for Consultation: . Requesting Physician: . Attending Physician: Preet Carreon MD Shahnaz is a 66 year old patient POD #4 from right tka with Dr. Rick. She was discharged home with home health on POD #1. Since being at home she has realized that she needs more assistance/care and was having difficulty with pain control. She was admitted last night. Unfortunately, her was not really willing to assist with her care at home. She said she has some knee pain, swelling, a burning feeling around the knee, and said she had some drainage. She was also having some epigastric pain but not presently. She said she did walk some with PT today. Allergies Allergy/AdvReac Type Severity Reaction Status Date / Time Horse/Equine Containing Allergy Unknown Skin test Verified 04/18/22 20:16 Products positive Home Medications Medication Instructions Recorded Confirmed Type albuterol sulfate 2.5 mg/3 mL 2.5 mg (3 mL) inhalation Q4H PRN 04/07/20 04/18/22 Rx (0.083 %) solution for nebulization Shortness Of Breath Or Wheezing #150 mL montelukast 10 mg tablet 10 mg PO HS 1 month #30 tabs 06/16/21 04/18/22 Rx (Singulair) gabapentin 300 mg capsule 300 mg PO TID #270 caps 08/05/21 04/18/22 Rx (Neurontin) budesonide-formoterol HFA 160 1 puff inhalation BID #10.2 grams 09/23/21 04/18/22 Rx mcg-4.5 mcg/actuation aerosol inhaler (Symbicort) bupropion HCl 150 mg 24 hr tablet, 150 mg PO QAM #90 tabs 01/13/22 04/18/22 Rx extended release albuterol sulfate 90 mcg/actuation 2 puff inhalation QID PRN 02/07/22 04/18/22 Rx aerosol inhaler (Ventolin HFA) Bronchodilation #8.5 grams plurxhm-eqnzfewgaybxf-bsxctwcf 250 1 - 2 tab PO Q6H PRN Pain 03/08/22 04/18/22 History mg-250 mg-65 mg tablet (Excedrin Extra Strength) duloxetine 30 mg capsule,delayed 30 mg PO QAM 03/08/22 04/18/22 History release (Cymbalta) duloxetine 60 mg capsule,delayed 60 mg PO QAM 03/08/22 04/18/22 History release ibuprofen 200 mg tablet (Advil) 400 mg PO Q6H PRN Pain 03/08/22 04/18/22 History metoprolol succinate 100 mg 100 mg PO QAM 03/08/22 04/18/22 History tablet,extended release 24 hr tiotropium bromide 2.5 2 puff inhalation QAM 03/08/22 04/18/22 History mcg/actuation mist for inhalation (Spiriva Respimat) oxycodone-acetaminophen 10 mg-325 1 tab PO Q6H PRN Pain #120 tabs 04/12/22 04/18/22 Rx mg tablet aspirin 81 mg tablet,delayed 81 mg PO BID #84 tabs 04/15/22 04/18/22 Rx release (Adult Aspirin Regimen) carisoprodol 350 mg tablet (Soma) 350 mg PO BID PRN muscle pain 04/15/22 04/18/22 History alendronate 70 mg tablet (Fosamax) 70 mg PO WK 04/18/22 04/18/22 History bisacodyl 5 mg tablet,delayed 10 mg PO DAILY PRN Constipation 04/18/22 04/18/22 History release hydroxyzine HCl 10 mg tablet 10 - 20 mg PO HS PRN Sleep 04/18/22 04/18/22 History omeprazole 20 mg capsule,delayed 20 mg PO QAM 04/18/22 04/18/22 History release Past Med/Surg History Medical History Allergic rhinitis Anxiety Asthma-COPD overlap syndrome Stable Cardiomyopathy LVEF 50% to 55% on Echo 04/14/22 -- Possibly tachycardia-induced per cardio records Cervical disc disease Chronic back pain Frequent unifocal PVCs GERD (gastroesophageal reflux disease) Hepatitis C Treated with Harvoni Hiatal hernia History of atrial fibrillation Remote hx 30 years ago per pt's (not indicated in 2020 cardio records) Hypertension Kidney stones Mixed conductive and sensorineural hearing loss Osteoporosis Fosamax started 09/2019 Vocal cord disease "flow volume loop suggest significant expiratory limb flattening which would be consistent with potential paroxysmal vocal cord dysfunction" per pulmonary review of PFTs from 06/2020 Surgical History History of bilateral cataract extraction History of bilateral tubal ligation History of colonoscopy History of cystoscopy History of esophagogastroduodenoscopy (EGD) History of foot surgery History of lithotripsy History of myringotomy R/L History of neck surgery History of open reduction and internal fixation (ORIF) procedure left foot (+ plate) History of placement of ear tubes History of sinus surgery History of tonsillectomy and adenoidectomy Status post cervical spinal fusion Status post correction of deviated nasal septum Status post cystoscopy with ureteral stent placement Status post thoracotomy L lung with biopsy (negative) Family History Father Family history of diabetes mellitus Hypertension Coronary heart disease Prostate cancer Cancer Heart disease Mother Hypertension COPD (chronic obstructive pulmonary disease) Aunt Asthma Allergic rhinitis Hypertension Heart disease Other No family history of allergies No family history of bleeding disorder Denies family history of Hearing loss Stroke Social History Smoking Status: Former smoker Tobacco Type: Cigarettes Number of Years Since Quit: 40; Second Hand Exposure: Yes (spouse smokes); Hx Alcohol Use: No Hx Substance Use: No Preferred Language: Lithuanian Communication Ability: Effective Denture Contour Wire Specialist Required: No Beliefs That Will Affect Care: None marital status: Current Living Situation: Spouse current occupational status: retired How many Children do You have: 3 Other Information That Helps Us Care for You: No Feels Safe at Home: Yes Safety Concerns: Feels Safe At This Time caffeine: Yes Dental Care, Regularly: Yes Physical Activity Frequency: Does not Exercise Seatbelt Use: always Assistive Devices: Denture - Upper, Glasses and Walker Review of Systems All systems reviewed & are unremarkable except as noted in HPI & below. Physical Exam .She is alert and oriented. NAD. Right knee/leg: incision well approximated. Choco intact. Slight erythema anteriorly. Some mild swelling. There is some dry blood along areas of the incision. No drainage. No purulence. She can do a straight leg raise. Knee flexion to about 80 degrees now. Able to dorsiflex and plantarflex. Results & Data Results & Data Laboratory Results . Diagnostic Findings . PG Care Time/CCT Total # of Minutes Spent Total Time Spent with Patient: Total time spent is greater than 50% in coordination of care (as documented) at patient's floor/unit and/or counseling patient: Coding Level of Care Code None Diagnoses S/P total knee replacement Z96.651 Laterality: right (1) S/P total knee replacement Laterality: right Qualified Code(s): Z96.651 - Presence of right artificial knee joint
--- NOTE | 2022-04-19 16:04 | Electrocardiogram Report ---
Test Reason : Blood Pressure : / mmHG Vent. Rate : 127 BPM Atrial Rate : 127 BPM P-R Int : 138 ms QRS Dur : 080 ms QT Int : 328 ms P-R-T Axes : 053 054 047 degrees QTc Int : 476 ms Poor data quality, interpretation may be adversely affected Sinus tachycardia Low voltage QRS Borderline ECG When compared with ECG of 14-MAR-2022 14:17, No significant change was found Confirmed by Ralph Knutson ([id number]) on 04/19/2022 4:04:14 PM Referred By: REFERRED SELF Confirmed By:Ralph Knutson
--- NOTE | 2022-04-19 16:15 | Electrocardiogram Report ---
Test Reason : Blood Pressure : / mmHG Vent. Rate : 118 BPM Atrial Rate : 118 BPM P-R Int : 148 ms QRS Dur : 084 ms QT Int : 350 ms P-R-T Axes : 060 061 062 degrees QTc Int : 490 ms Sinus tachycardia Otherwise normal ECG When compared with ECG of 18-APR-2022 18:24, (unconfirmed) No significant change was found Confirmed by Ralph Knutson ([id number]) on 04/19/2022 4:15:21 PM Referred By: REFERRED SELF Confirmed By:Ralph Knutson
[2022-04-19] MEDS ORDERED: ALUMINUM/MAGNESIUM SUSP 30 ML UDC PO PRN (17:16)
[2022-04-19] MEDS: MONTELUKAST SODIUM 10 MG TABLET PO SCH (20:02)
[2022-04-19] MEDS: cephALEXin 250 MG CAP PO SCH (20:02)
[2022-04-20] MEDS: oxyCODONE HCL IR 5 MG TAB (IMMEDIATE RELEASE) PO PRN ×3 (01:23→22:07)
[2022-04-20] MEDS: FLUTICASONE/VILANTEROL 100/25MCG 14 PUFFS/INHALER INH SCH (07:45)
[2022-04-20] MEDS: UMECLIDINIUM BROMIDE 62.5MCG/BLISTER 7 PUFFS/INHALER INH SCH (07:46)
[2022-04-20] MEDS: cephALEXin 250 MG CAP PO SCH ×4 (07:49→19:47)
[2022-04-20] MEDS: GABAPENTIN 300 MG CAP PO SCH ×3 (07:49→19:49)
[2022-04-20] MEDS: ACETAMINOPHEN 500 MG TAB PO SCH ×3 (07:49→19:48)
[2022-04-20] MEDS: POTASSIUM CHLORIDE CRTAB 20 MEQ TABCR PO SCH (07:50)
[2022-04-20] MEDS: FAMOTIDINE 40 MG TABLET PO SCH (07:50)
[2022-04-20] MEDS: DULoxetine HCL 30 MG CAP PO SCH (07:51)
[2022-04-20] MEDS: METOPROLOL SUCC 50MG EXT REL TAB PO SCH (07:51)
[2022-04-20] MEDS: DULoxetine HCL 60 MG CAP PO SCH (07:51)
[2022-04-20] MEDS: buPROPion XL 150 MG TABCR PO SCH (07:51)
[2022-04-20] MEDS: ASPIRIN 81 MG ECTAB PO SCH ×2 (07:52→19:46)
[2022-04-20] MEDS: MONTELUKAST SODIUM 10 MG TABLET PO SCH (19:46)
--- NOTE | 2022-04-20 20:30 | Hospitalist Progress Note ---
Date of Service April 20, 2022 Assessment & Plan (1) Post-operative pain: Plan: Jayla Najera is a 66yo female s/p right TKA performed on 04/15/22. Surgery was well tolerated, patient able to participate in therapy and was ultimately discharged in stable condition on 04/16/22. Since then she has been having significant difficulty at home. She has not been up and moving or taking her medications as prescribed. -Pain control with Tylenol and Oxy-IR PRN -Dulcolax PRN constipation -ASA 81mg po BID for DVT prophylaxis -PT/OT evaluation for possible rehab patient states she cannot manage her self at home consider metabolic encephalopathy from uti poa 60,000 gram-positive cocci's are seen in urine on cephalexin po Consider toxic encephalopathy from medications (2) S/P total knee replacement: Plan: 04/15/22 . Reports she has been having difficulty at home ortho eval suspects healing as typical -Pain control as above, Tylenol and Oxycodone PRN -Zofran PRN -PT/OT evaluation re: placement/recommending placement for rehab (3) GERD (gastroesophageal reflux disease): Plan: Patient has been complaining of worsening GERD symptoms. Given a GI cocktail and Pepcid IV in the ER -Continue Pepcid 40mg po daily -High-sensitivity troponins negative (4) Hypertension: Plan: Blood pressure stable -Continue Metoprolol 100mg po daily (5) Cardiomyopathy: Plan: History of mild cardiomyopathy with wall motion abnormalities - possibly secondary to tachycardia, sustained tachycardia with frequent PVCs. Patient appears compensated. She follows with Cardiology -Continue Metoprolol (6) Asthma-COPD overlap syndrome: Plan: No cough, SOB or wheeze -Continue Albuterol PRN -Continue Fluticasone/Vilanterol -Continue Umeclidinium -Continue Singulair (7) Anxiety: Plan: Chronic. -Continue Welbutrin -Continue Cymbalta Ppx - SCDs Code - DNR/DNI per discussion with patient Dispo - Observation to medical with telemetry will need short-term rehab stay Admission and Anticipated Discharge Date Admission Date: April 18, 2022 Subjective pt is in good spirits, still weak and tired after surgery was seen while doing physical therapy Review of Systems Review of Systems: Mild distress and fatigue no headache, no visual changes no speech or swallowing issues no chest pain, pressure or palpitations no shortness of breath, cough or wheezes no abdominal pain, nausea or vomiting, diarrhea or constipation no dysuria, hematuria or frequency Postoperative joint pain and erythema about incision no back pain, CVA tenderness or radicular pain no bruising, bleeding or rashes no focal signs of weakness or numbness or altered sensation no complaints of anxiety or depression.. Physical Exam Physical Exam: The patient appeared well nourished and normally developed. Vital signs as documented. Head exam is normocephalic atraumatic Neck is without JVD, thyromegaly, or carotid bruits. Lungs are clear to auscultation, no focal loss of breath sounds Cardiac exam, Rhythm is regular.. No murmurs, rubs or gallops. Abdominal exam reveals normal bowel sounds, soft non tender, no masses Patient's knee is slightly tender wound is well approximated only mild erythema which could be consistent with irritation and mild suprapatellar joint effusion Neurologic exam is alert and oriented, no focal loss of strength or sensation encephalopathy seems to be clearing Skin is without bruises or rashes Psychologically is without concerns for anxiety or depression.. Results & Data Results & Data ([facility]) Vital Signs (Past 12 Hours) Vital Signs Temp Pulse Pulse Resp BP BP Pulse Ox 04/20/22 18:49 97.9 F 84 18 105/67 97 04/20/22 16:15 97.7 F 80 18 108/86 96 04/20/22 15:23 102 H 04/20/22 11:31 98.2 F 93 H 20 98/64 L 97 O2 Del Method 04/20/22 18:49 Room Air 04/20/22 16:15 Room Air 04/20/22 15:23 04/20/22 11:31 Room Air PG Care Time/CCT Total # of Minutes Spent Total Time Spent with Patient: Total time spent is greater than 50% in coordination of care (as documented) at patient's floor/unit and/or counseling patient: Coding Level of Care Code 83823 Subseq Hosp Care Lvl 2 Diagnoses Post-operative pain G89.18 S/P total knee replacement Z96.651 Laterality: right GERD (gastroesophageal reflux disease) K21.9 Hypertension I10 Cardiomyopathy I42.9 Cardiomyopathy type: unspecified Asthma-COPD overlap syndrome J44.9 Anxiety F41.9 (1) S/P total knee replacement Laterality: right Qualified Code(s): Z96.651 - Presence of right artificial knee joint (2) Cardiomyopathy Cardiomyopathy type: unspecified Qualified Code(s): I42.9 - Cardiomyopathy, unspecified
[2022-04-21] MEDS: FLUTICASONE/VILANTEROL 100/25MCG 14 PUFFS/INHALER INH SCH (08:09)
[2022-04-21] MEDS: UMECLIDINIUM BROMIDE 62.5MCG/BLISTER 7 PUFFS/INHALER INH SCH (08:10)
[2022-04-21] MEDS: DULoxetine HCL 60 MG CAP PO SCH (08:10)
[2022-04-21] MEDS: GABAPENTIN 300 MG CAP PO SCH ×3 (08:10→20:28)
[2022-04-21] MEDS: DULoxetine HCL 30 MG CAP PO SCH (08:11)
[2022-04-21] MEDS: buPROPion XL 150 MG TABCR PO SCH (08:11)
[2022-04-21] MEDS: FAMOTIDINE 40 MG TABLET PO SCH (08:11)
[2022-04-21] MEDS: METOPROLOL SUCC 50MG EXT REL TAB PO SCH (08:11)
[2022-04-21] MEDS: ACETAMINOPHEN 500 MG TAB PO SCH ×3 (08:12→20:27)
[2022-04-21] MEDS: cephALEXin 250 MG CAP PO SCH (08:12)
[2022-04-21] MEDS: ASPIRIN 81 MG ECTAB PO SCH ×2 (08:13→20:28)
[2022-04-21] MEDS: AMOXICILLIN 500 MG CAP PO SCH ×2 (11:20→20:27)
--- NOTE | 2022-04-21 15:04 | Orthopedic Progress Note ---
Date of Service April 21, 2022 Assessment & Plan (1) S/P total knee replacement: Overall she seems to be doing well with better. She ambulated well today with physical therapy. She has received insurance approval for discharge to a rehab facility, however, it sounds like her has agreed that she can return home with [facility]. She would like to be discharged tomorrow. She is currently on aspirin for DVT prophylaxis. She can be discharged home when medically ready. She will follow-up with orthopedics as previously scheduled. Eze Christie was seen and examined at bedside this morning. Overall she is doing very well. She is not having much pain in the right knee. She has been ambulating well with physical therapy. She is feeling better and has no complaints.. Review of Systems All systems reviewed & are unremarkable except as noted in HPI & below. Physical Exam On physical examination of the right knee, the incision looks good. There is minimal effusion. Her leg is out full extension.. Results & Data Results & Data Laboratory Results . Diagnostic Findings . PG Care Time/CCT Total # of Minutes Spent Total Time Spent with Patient: Total time spent is greater than 50% in coordination of care (as documented) at patient's floor/unit and/or counseling patient: Coding Level of Care Code 97201 Post Operative Follow-Up Diagnoses S/P total knee replacement Z96.651 Laterality: right (1) S/P total knee replacement Laterality: right Qualified Code(s): Z96.651 - Presence of right artificial knee joint
--- NOTE | 2022-04-21 19:26 | Hospitalist Progress Note ---
Date of Service April 21, 2022 Assessment & Plan (1) Post-operative pain: Plan: Jayla Najera is a 66yo female s/p right TKA performed on 04/15/22. Surgery was well tolerated, patient able to participate in therapy and was ultimately discharged in stable condition on 04/16/22. Since then she has been having significant difficulty at home. She has not been up and moving or taking her medications as prescribed. Jeri has been in the hospital for a few days she is in much better spirits able to move about awake and alert -Good pain control with Tylenol and Oxy-IR PRN -Dulcolax PRN constipation -ASA 81mg po BID for DVT prophylaxis -PT/OT evaluation for possible rehab patient states she cannot manage her self at home consider metabolic encephalopathy from uti poa 60,000 gram-positive cocci's are seen in urine Aerococcus identified change antibiotics to amoxicillin Consider toxic encephalopathy from medications (2) S/P total knee replacement: Plan: 04/15/22 . Reports she has been having difficulty at home ortho eval suspects healing as typical -Pain control as above, Tylenol and Oxycodone PRN -Zofran PRN -PT/OT evaluation re: placement/recommending placement for rehab however patient refuses and wishes to go home with home health (3) GERD (gastroesophageal reflux disease): Plan: Patient has been complaining of worsening GERD symptoms. Given a GI cocktail and Pepcid IV in the ER -Continue Pepcid 40mg po daily -High-sensitivity troponins negative (4) Hypertension: Plan: Blood pressure stable -Continue Metoprolol 100mg po daily (5) Cardiomyopathy: Plan: History of mild cardiomyopathy with wall motion abnormalities - possibly secondary to tachycardia, sustained tachycardia with frequent PVCs. Patient appears compensated. She follows with Cardiology -Continue Metoprolol (6) Asthma-COPD overlap syndrome: Plan: No cough, SOB or wheeze -Continue Albuterol PRN -Continue Fluticasone/Vilanterol -Continue Umeclidinium -Continue Singulair (7) Anxiety: Plan: Chronic. -Continue Welbutrin -Continue Cymbalta Ppx - SCDs Code - DNR/DNI per discussion with patient Admission and Anticipated Discharge Date Admission Date: April 18, 2022 Subjective pt is in good spirits, patient has progressed nicely feels she can do therapy from home and according with her consider discharge on 04/22/2022 with home health services Review of Systems Review of Systems: Mild distress and fatigue no headache, no visual changes no speech or swallowing issues no chest pain, pressure or palpitations no shortness of breath, cough or wheezes no abdominal pain, nausea or vomiting, diarrhea or constipation no dysuria, hematuria or frequency Postoperative joint pain and erythema about incision no back pain, CVA tenderness or radicular pain no bruising, bleeding or rashes no focal signs of weakness or numbness or altered sensation no complaints of anxiety or depression.. Physical Exam Physical Exam: The patient appeared well nourished and normally developed. Vital signs as documented. Head exam is normocephalic atraumatic Neck is without JVD, thyromegaly, or carotid bruits. Lungs are clear to auscultation, no focal loss of breath sounds Cardiac exam, Rhythm is regular.. No murmurs, rubs or gallops. Abdominal exam reveals normal bowel sounds, soft non tender, no masses Patient's knee is slightly tender wound is well approximated only mild erythema which could be consistent with irritation and mild suprapatellar joint effusion Neurologic exam is alert and oriented, no focal loss of strength or sensation encephalopathy seems to be clearing Skin is without bruises or rashes Psychologically is without concerns for anxiety or depression.. Results & Data Results & Data ([facility]) Vital Signs (Past 12 Hours) Vital Signs Temp Pulse Pulse Resp BP BP Pulse Ox 04/21/22 15:04 98.1 F 82 18 90/58 L 97 04/21/22 11:27 97.5 F L 76 18 91/61 L 95 04/21/22 07:47 97.7 F 96 H 96 H 104/71 18 L 04/21/22 07:30 83 O2 Del Method 04/21/22 15:04 Room Air 04/21/22 11:27 Room Air 04/21/22 07:47 Room Air 04/21/22 07:30 PG Care Time/CCT Total # of Minutes Spent Total Time Spent with Patient: Total time spent is greater than 50% in coordination of care (as documented) at patient's floor/unit and/or counseling patient: Coding Level of Care Code 88258 Subseq Hosp Care Lvl 2 Diagnoses Post-operative pain G89.18 S/P total knee replacement Z96.651 Laterality: right GERD (gastroesophageal reflux disease) K21.9 Hypertension I10 Cardiomyopathy I42.9 Cardiomyopathy type: unspecified Asthma-COPD overlap syndrome J44.9 Anxiety F41.9 (1) S/P total knee replacement Laterality: right Qualified Code(s): Z96.651 - Presence of right artificial knee joint (2) Cardiomyopathy Cardiomyopathy type: unspecified Qualified Code(s): I42.9 - Cardiomyopathy, unspecified
[2022-04-21] MEDS: MONTELUKAST SODIUM 10 MG TABLET PO SCH (20:29)
[2022-04-22] MEDS: UMECLIDINIUM BROMIDE 62.5MCG/BLISTER 7 PUFFS/INHALER INH SCH (08:05)
[2022-04-22] MEDS: FLUTICASONE/VILANTEROL 100/25MCG 14 PUFFS/INHALER INH SCH (08:05)
[2022-04-22] MEDS: buPROPion XL 150 MG TABCR PO SCH (08:06)
[2022-04-22] MEDS: ACETAMINOPHEN 500 MG TAB PO SCH ×2 (08:06→13:28)
[2022-04-22] MEDS: DULoxetine HCL 60 MG CAP PO SCH (08:06)
[2022-04-22] MEDS: DULoxetine HCL 30 MG CAP PO SCH (08:06)
[2022-04-22] MEDS: FAMOTIDINE 40 MG TABLET PO SCH (08:06)
[2022-04-22] MEDS: GABAPENTIN 300 MG CAP PO SCH ×2 (08:06→13:28)
[2022-04-22] MEDS: METOPROLOL SUCC 50MG EXT REL TAB PO SCH (08:06)
[2022-04-22] MEDS: ASPIRIN 81 MG ECTAB PO SCH (08:06)
[2022-04-22] MEDS: AMOXICILLIN 500 MG CAP PO SCH (08:07)
[2022-04-22 08:33] VITALS: TEMP 98.2; O2SAT 97
[2022-04-22] MEDS: ONDANSETRON INJ 2 MG/ML 2 ML VIAL IV PRN (09:44)
[2022-04-22 11:47] VITALS: BP 104/71; PULSE 122
--- NOTE | 2022-04-22 19:30 | Discharge Summary ---
Date of Service April 22, 2022 Admission HPI Per Admitting Provider Shahnaz Najera is a 66yo female with history of asthma/COPD, GERD and HTN presenting from home with difficulty caring for herself. She has longstanding history of osteoarthritis and progressive right knee pain and had a right TKA performed on 04/15/[address] Rick. The surgery was well tolerated with no complications identified. She had spinal anesthesia. She was discharged home on 04/16/22 in stable condition. She was instructed to continue ASA 81mg po BID for DVT prophylaxis. Since she has been home she has been having difficulty with ambulation and caring for herself. She has not been taking her medications as prescribed. Her is at home with her but has not been able to help has as much as she has needed. She reports that she has had significant discomfort in her knee. She has also been having more epigastric discomfort, heartburn symptoms and belching. She has had nausea but no vomiting as well as chills. ER Course: NSS, Tylenol 1gm, GI Cocktail, Pepcid 20mg IV, Oxycodone 5mg Principal Diagnosis Failure to thrive recent total knee arthroplasty Discharge Exam The patient appeared well nourished and normally developed. Vital signs as documented. Head exam is normocephalic atraumatic Neck is without JVD, thyromegaly, or carotid bruits. Lungs are clear to auscultation, no focal loss of breath sounds Cardiac exam, Rhythm is regular.. No murmurs, rubs or gallops. Abdominal exam reveals normal bowel sounds, soft non tender, no masses Extremities knee has postoperative changes no erythema effusion reduced Neurologic exam is alert and oriented, no focal loss of strength or sensation Psychologically is without concerns for anxiety or depression.. Discharge Data Allergies Allergy/AdvReac Type Severity Reaction Status Date / Time Horse/Equine Containing Allergy Unknown Skin test Verified 04/18/22 20:16 Products positive Consultations 04/18/22 19:29 ED Decision to Admit Stat 04/19/22 10:46 Consult Orthopedic Surgery Routine Ordered Studies 04/19/22 00:52 CT angio chest PE protocol Stat Hospital Course (1) Post-operative pain: Jayla Najera is a 66yo female s/p right TKA performed on 04/15/22. Surgery was well tolerated, patient able to participate in therapy and was ultimately discharged in stable condition on 04/16/22. Since then she has been having significant difficulty at home. She has not been up and moving or taking her medications as prescribed. Jeri has been in the hospital for a few days she is in much better spirits able to move about awake and alert -Good pain control with Tylenol and Oxy-IR PRN -Dulcolax PRN constipation -ASA 81mg po BID for DVT prophylaxis -Patient refuses rehab placement consider metabolic encephalopathy from uti poa 60,000 gram-positive cocci's are seen in urine Enterococcus identified change antibiotics to amoxicillin dis charged home to complete course Consider toxic encephalopathy from medications such as postoperative pain medication (2) S/P total knee replacement: 04/15/22 . Reports she has been having difficulty at home ortho eval suspects healing as typical -Pain control as above, Tylenol and Oxycodone PRN -Zofran PRN -PT/OT evaluation re: placement/recommending placement for rehab however patient refuses and wishes to go home with home health (3) GERD (gastroesophageal reflux disease): Patient has been complaining of worsening GERD symptoms. Given a GI cocktail and Pepcid IV in the ER -Continue Pepcid 40mg po daily -High-sensitivity troponins negative (4) Hypertension: Blood pressure stable -Continue Metoprolol 100mg po daily (5) Cardiomyopathy: History of mild cardiomyopathy with wall motion abnormalities - possibly secondary to tachycardia, sustained tachycardia with frequent PVCs. Patient appears compensated. She follows with Cardiology -Continue Metoprolol (6) Asthma-COPD overlap syndrome: No cough, SOB or wheeze -Continue Albuterol PRN -Continue Fluticasone/Vilanterol -Continue Umeclidinium -Continue Singulair (7) Anxiety: Chronic. -Continue Welbutrin -Continue Cymbalta Code - DNR/DNI per discussion with patient Total Time Total Time Spent Total Time Spent (In Minutes): It required greater than 30 minutes to prepare this patient for discharge Discharge Plan Discharge Items Patient Disposition: Home - Home Health Services Reason For Visit: WEAKNESS, CHEST PAIN Discharge Diagnosis: weakness after TKA uti poa Activity: Per Instructions section Activity Comment: participate in home Physical therapy Non-emergency contact: Primary Care Provider and Surgeon Call non-emergency contact if: your symptoms worsen Follow-up/Referrals: Kala Yarbrough MD [Primary Care Provider] - 05/04/22 2:00 pm Diet: Regular Addtl Attending Provider Instructions: please continue to work with physical therapy to help you rehabilitate from your knee surgery please follow up with your family doctor in one week complete your anitiboitic for your urinary tract infection Pending Studies at Discharge: No Stand-Alone Forms: My [facility] [employer], Smoking Cessation Medications and DC Order Prescriptions: New amoxicillin 500 mg Capsule 500 mg PO BID Qty: 8 0RF Continued albuterol sulfate 2.5 mg /3 mL (0.083 %) solution for nebulization 2.5 mg inhalation Q4H PRN (Reason: Shortness Of Breath Or Wheezing) Qty: 150 5RF montelukast [Singulair] 10 mg tablet 10 mg PO HS 30 Days Qty: 30 5RF gabapentin [Neurontin] 300 mg capsule 300 mg PO TID Qty: 270 3RF budesonide-formoterol [Symbicort] 160-4.5 mcg/actuation HFA aerosol inhaler 1 puff INH BID Qty: 10.2 5RF bupropion HCl 150 mg tablet extended release 24 hr 150 mg PO QAM Qty: 90 3RF albuterol sulfate [Ventolin HFA] 90 mcg/actuation HFA aerosol inhaler 2 puff INHALATION QID PRN (Reason: Bronchodilation) Qty: 8.5 5RF oxycodone-acetaminophen 10-325 mg tablet 1 tab PO Q6H PRN (Reason: Pain) Qty: 120 0RF metoprolol succinate 100 mg tablet extended release 24 hr 100 mg PO QAM duloxetine [Cymbalta] 30 mg capsule,delayed release(DR/EC) 30 mg PO QAM Rx Instructions: Take together with 60 mg cap for TDD 90 mg. duloxetine 60 mg capsule,delayed release(DR/EC) 60 mg PO QAM Rx Instructions: Take together with 30 mg cap for TDD 90 mg. Spiriva Respimat 2.5 mcg/actuation mist 2 puff INH QAM ibuprofen [Advil] 200 mg Tablet 400 mg PO Q6H PRN (Reason: Pain) Excedrin Extra Strength 250-250-65 mg Tablet 1 - 2 tab PO Q6H PRN (Reason: Pain) carisoprodol [Soma] 350 mg tablet 350 mg PO BID PRN (Reason: muscle pain) aspirin [Adult Aspirin Regimen] 81 mg tablet,delayed release (DR/EC) 81 mg PO BID Qty: 84 0RF omeprazole 20 mg capsule,delayed release(DR/EC) 20 mg PO QAM Rx Instructions: TAKE ONE CAPSULE BY MOUTH ONCE DAILY hydroxyzine HCl 10 mg tablet 10 - 20 mg PO HS PRN (Reason: Sleep) bisacodyl 5 mg tablet,delayed release (DR/EC) 10 mg PO DAILY PRN (Reason: Constipation) alendronate [Fosamax] 70 mg tablet 70 mg PO WK Discharge Orders: Discharge Order (Routine); Ordered 04/22/22 Ordered By: Preet Carreon Admission Data Admit Date/Time: 04/21/22 19:26 Attending Provider: Preet Carreon Admit Provider: Amisha Holden Primary Care Provider: Kala Yarbrough Other Providers: Amisha Holden ; [employer] [facility] ; Gabriel Rick Other Interventions: Discharge Summary Assessment (RN) Last Done: 04/22/22 11:45 Coding Level of Care Code D/C DAY MANAGEMENT >30 MINS Diagnoses Post-operative pain G89.18 S/P total knee replacement Z96.651 Laterality: right GERD (gastroesophageal reflux disease) K21.9 Hypertension I10 Cardiomyopathy I42.9 Cardiomyopathy type: unspecified Asthma-COPD overlap syndrome J44.9 Anxiety F41.9
== END 2022-04-22 14:49 | disposition home health service (06) ==
LOC: 2N 18:15 → ED 18:15 → SUATTDRO 19:47 → 2N 22:52
DX: I42.9 Cardiomyopathy, unspecified; Z88.8 Allergy status to other drugs, medicaments and biological substances; R62.7 Adult failure to thrive; R26.2 Difficulty in walking, not elsewhere classified; J44.9 Chronic obstructive pulmonary disease, unspecified; Z96.651 Presence of right artificial knee joint; Z79.899 Other long term (current) drug therapy; Z79.82 Long term (current) use of aspirin; K21.9 Gastro-esophageal reflux disease without esophagitis; I10 Essential (primary) hypertension; G89.28 Other chronic postprocedural pain

== ENCOUNTER 2023-10-25 10:42 | Inpatient (IN) ==
[2023-10-25 11:50] LABS: Basophils # (auto) 0.03 K/uL (0.00-0.20); Basophils % (auto) 0.5 %; Eosinophils # (auto) 0.06 K/uL (0.00-0.50); Eosinophils % (auto) 1.1 %; Hematocrit (blood only) 40.3 % (37.0-47.0); Hemoglobin 12.7 g/dl (12.0-16.0); Immature Granulocytes # (auto) 0.01 K/uL (0.01-0.20); Immature Granulocytes % (auto) 0.2 %; Lymphocytes # (auto) 0.79 K/uL (1.20-3.40); Lymphocytes % (auto) 13.9 %; Mean Corpuscular Hgb Conc 31.5 g/dL (32.0-36.0); Mean Platelet Volume 11.8 fL (9.4-12.4); Monocytes # (auto) 0.58 K/uL (0.11-0.59); Monocytes % (auto) 10.2 %; Neutrophils # (auto) 4.22 K/uL (1.40-6.50); Neutrophils % (auto) 74.1 %; Platelet Count 142 K/uL (130-400); RDW Coefficient of Variation 17.6 % (11.5-14.5); RDW Standard Deviation 57.1 fL (36.4-46.3); Red Blood Count 4.53 M/uL (4.20-5.40); White Blood Count 5.69 K/ul (4.8-10.8)
[2023-10-25 11:54] LABS: Influenza A virus by PCR Negative (Neg); Influenza B virus by PCR Negative (Neg); RSV by PCR Negative (Neg); SARS CoV2 RNA(COVID-19) Ceph NEGATIVE (Negative)
[2023-10-25 12:08] LABS: Albumin Level 4.2 gm/dl (3.4-5.0); BUN Creatinine Ratio 11.7 (10-20); Bilirubin,Total 0.9 mg/dl (0.2-1.0); Calcium 10.2 mg/dl (8.6-10.3); Creatinine Clr Calc Pharmacy 61.8 ml/min; Est GFR (African American) 93.3 ml/min; Est GFR (Non-African American) 80.5 ml/min; Globulin 4.1 gm/dl (2.5-4.0); Potassium 3.5 mmol/L (3.5-5.1); Total Protein 8.3 gm/dl (6.0-8.3)
[2023-10-25] MEDS: ONDANSETRON INJ 2 MG/ML 2 ML VIAL IV STA ×2 (12:54→20:20)
--- NOTE | 2023-10-25 12:58 | Emergency Department Note ---
Impression & Plan Choledocholithiasis, Elevated LFTs, Elevated lipase ED Provider Note NAME: VEE COSME AGE: 67 SEX: F : 1955 ARRIVES VIA: Walk-In INFORMANT: Patient, ED PROVIDER(S): Raj Sheth MD CHIEF COMPLAINT: Vomiting, abdominal pain HPI: This is a 67-year-old female presenting for vomiting/upper abdominal pain. Patient notes that since last night she has had profuse vomiting, now vomiting bile patient notes that she notes upper/left upper quadrant abdominal pain. This never happened before. She did have a history of diverticulitis but this feels significantly different than this. Patient had never had abdominal surgery. She notes no diarrhea, fevers, chills ROS: See above HPI for pertinent positives & negatives. A total of 10 systems reviewed and were otherwise negative. PAST MEDICAL HISTORY: See Below PAST SURGICAL HISTORY: See Below FAMILY HISTORY: See Below SOCIAL HISTORY: See Below HOME MEDICATIONS: See Below ALLERGIES: See Below VITALS: See Below PHYSICAL EXAMINATION: General: resting comfortably in no acute distress Head: Normocephalic and atraumatic Eyes: Normal inspection, extraocular muscles intact Ear, nose, throat: Normal external exam Neck: Normal range of motion Respiratory: lungs clear to auscultation bilaterally Cardiovascular: Regular rate/rhythm, no murmur GI: Soft, mild epigastric/left lower quadrant tenderness without rebound, voluntary guarding Extremities: nontender, moves all extremities Neuro: The patient awake and alert, appropriately conversive, no focal deficits, symmetric faces Skin: Warm, dry, and intact MEDICAL DECISION MAKING: This is a 67-year-old female present for vomiting, abdominal pain. Laboratory at triage, Will add on CT imaging to help elucidate. -Slight transaminitis noted with AST greater than ALT otherwise lipase also elevated at 209 -CT imaging reveals CBD dilation concerning for sphincter of Oddi dysfunction versus choledocholithiasis with the setting of patient's LFTs and lipase, consider choledocholithiasis. -With history appears well with minimal pain, improved after medications. -Otherwise will discuss with Dr. Posey, GI who states patient can be admitted here, get MRCP. -Admitted to hospital service pending MRCP. Differential diagnosis: SBO, pancreatitis, cholecystitis, choledocholithiasis, volvulus, diverticulitis ER treatment provided: See below Diagnostics interpreted by me: ECG: ECG independently interpreted by me with sinus tachycardia, rate of 106, normal NC, normal QRS, normal QTc, no ST segment elevations consistent with STEMI criteria Cardiac Monitoring: An order was placed for continuous cardiac monitoring. The monitor shows a rate of 96 with sinus rhythm. Laboratory studies: As stated above and show below. Imaging studies: See below. Past Med/Surg History Medical History (Updated 10/25/23 @ 18:34 by Raj Sheth MD) Postmenopausal bleeding UTI (urinary tract infection) currently on Cipro History of nephrolithiasis Severe persistent asthma controlled w/ daily inhaler use Frequent unifocal PVCs Cardiomyopathy LVEF 50% to 55% on Echo 04/14/22 -- Possibly tachycardia-induced per cardio records Hiatal hernia Mixed conductive and sensorineural hearing loss LPRD (laryngopharyngeal reflux disease) Allergic rhinitis Hypertension Iron deficiency anemia iron infusion weekly [place] Osteoporosis Chronic back pain Hepatitis C hx ~2018 >> Treated with Harvoni GERD (gastroesophageal reflux disease) Anxiety Cervical disc disease Surgical History Hx of dilation and curettage x2 S/P total knee replacement rt History of esophagogastroduodenoscopy (EGD) PT THOUGHT SHE HEARD DR. POSEY SAY HE "DIDN'T WANT TO EVER GO DOWN HER THROAT AGAIN, BUT ISN'T 100% SURE THAT THAT IS WHAT HE SAID. THOUGHT HE MAY HAVE MENTIONED BREATHING ISSUES. BUT NO ONE TOLD HER ANYTHING AFTERWARD." History of neck surgery History of foot surgery History of sinus surgery Status post thoracotomy L lung with biopsy (negative) History of bilateral tubal ligation History of open reduction and internal fixation (ORIF) procedure left foot (+ plate) Status post cervical spinal fusion Neck movement good "but sometimes it cracks" History of cystoscopy Status post cystoscopy with ureteral stent placement History of lithotripsy History of colonoscopy History of tonsillectomy and adenoidectomy History of myringotomy R/L Status post correction of deviated nasal septum History of bilateral cataract extraction Family History Father Family history of diabetes mellitus Hypertension Coronary heart disease Prostate cancer Cancer Heart disease Myocardial infarction Mother Hypertension COPD (chronic obstructive pulmonary disease) Aunt Asthma Allergic rhinitis Hypertension Heart disease Myocardial infarction Other No family history of allergies No family history of bleeding disorder Denies family history of Ovarian cancer Hearing loss Breast cancer Colorectal cancer Uterine cancer Stroke Social History Smoking Status: Never smoker Tobacco Type: Cigarettes Age Started Using Tobacco: 22; Age Quit Using Tobacco: 23; Cigarettes Per Day: 1-2 cigs/day; Second Hand Exposure: No; Do You Dip or Chew Tobacco: No; Hx Alcohol Use: No Hx Substance Use: No Preferred Language: Cuban Communication Ability: Effective Visual Impairment: No Limitations Medical Oncology Physician Required: No Beliefs That Will Affect Care: None marital status: Current Living Situation: Spouse current occupational status: retired How many Children do You have: 3 Feels Safe at Home: Yes Diet: regular caffeine: Yes Dental Care, Regularly: Yes Physical Activity Frequency: Does not Exercise Seatbelt Use: always Assistive Devices: Glasses Allergies Allergies Allergy/AdvReac Type Severity Reaction Status Date / Time Horse/Equine Containing AdvReac Unknown Skin test Verified 10/12/23 12:29 Products positive Home Meds Home Medications Medication Instructions Recorded Confirmed focvhif-pwiuvwskqnrvu-xdtijijr 250 1 - 2 tab PO Q6H PRN Pain 03/08/22 10/25/23 mg-250 mg-65 mg tablet (Excedrin Extra Strength) ibuprofen 200 mg tablet (Advil) 400 mg PO Q6H PRN Pain 03/08/22 10/25/23 metoprolol succinate 100 mg 100 mg PO QAM 03/08/22 10/25/23 tablet,extended release 24 hr cholecalciferol (vitamin D3) 1,250 50,000 unit PO WK 10/02/23 10/25/23 mcg (50,000 unit) capsule trazodone 50 mg tablet 50 mg PO HS PRN Sleep 10/02/23 10/25/23 Previous Rx's Medication Instructions Recorded albuterol sulfate 2.5 mg/3 mL 2.5 mg (3 mL) inhalation Q4H PRN 04/07/20 (0.083 %) solution for nebulization Shortness Of Breath Or Wheezing #150 mL nebulizer accessories #1 ea 01/20/23 albuterol sulfate 90 mcg/actuation 2 puff inhalation QID PRN 02/01/23 aerosol inhaler (Ventolin HFA) Bronchodilation #8.5 grams budesonide-formoterol HFA 160 1 puff inhalation BID #10.2 grams 02/01/23 mcg-4.5 mcg/actuation aerosol inhaler (Symbicort) ipratropium 0.5 mg-albuterol 3 mg 3 ml inhalation Q4H PRN wheezing 03/06/23 (2.5 mg base)/3 mL nebulization #180 mL soln tezepelumab-ekko 210 mg/1.91 mL 210 mg (1.91 mL) subcut Q4WK #1.91 04/10/23 (110 mg/mL) subcutaneous pen mL injector (Tezspire) estradiol 0.01% (0.1 mg/gram) 1 g vaginal .COMPLEX #42.5 grams 04/18/23 vaginal cream tiotropium bromide 2.5 2 puff inhalation QAM #4 grams 05/08/23 mcg/actuation mist for inhalation (Spiriva Respimat) montelukast 10 mg tablet 10 mg PO HS #90 tabs 08/09/23 (Singulair) omeprazole 40 mg capsule,delayed 40 mg PO BID #60 caps 08/30/23 release gabapentin 300 mg capsule 300 mg PO TID #270 caps 10/16/23 (Neurontin) oxycodone-acetaminophen 10 mg-325 1 tab PO Q6H PRN Pain #120 tabs 10/20/23 mg tablet carisoprodol 350 mg tablet (Soma) 350 mg PO BID PRN muscle pain #60 10/23/23 tabs metronidazole 500 mg tablet 500 mg PO BID 7 days #14 tabs 10/25/23 Results & Data (ED) Vital Signs Vital Signs - 24 hr 10/25/23 10:45 10/25/23 12:57 10/25/23 16:23 Temperature 36.6 C Temperature Source Oral Pulse Rate 106 H Pulse Rate [Finger] 101 H 96 H Respiratory Rate 20 19 20 Respiratory Effort / Characteristics Non-Labored Non-Labored Respiratory Depth Normal Normal Respiratory Pattern Regular Blood Pressure 118/74 Blood Pressure [Right Arm] 134/88 137/79 Blood Pressure Mean 88 Blood Pressure Mean [Right Arm] 103 98 Blood Pressure Position [Right Arm] Sitting Pulse Oximetry 97 98 97 Oxygen Delivery Method Room Air Room Air Room Air Sepsis Recent Fever Within 48 Hours No Sepsis New/Unexplained Change in Mental Status No Sepsis Action Taken by Nursing No Action Required Laboratory Data 10/25/23 11:26 10/25/23 11:22 Lab Results 10/25/23 10/25/23 10/25/23 Range/Units 10:45 11:22 11:26 WBC 5.69 (4.8-10.8) K/ul RBC 4.53 (4.20-5.40) M/uL Hgb 12.7 (12.0-16.0) g/dl Hct 40.3 (37.0-47.0) % MCV 89.0 (80.0-100.0) fL MCH 28.0 (25.0-34.0) pg MCHC 31.5 L (32.0-36.0) g/dL RDW Std Deviation 57.1 H (36.4-46.3) fL RDW Coeff of Amelia 17.6 H (11.5-14.5) % Plt Count 142 (130-400) K/uL MPV 11.8 (9.4-12.4) fL Immature Gran % (Auto) 0.2 % Neut % (Auto) 74.1 % Lymph % (Auto) 13.9 % Kings % (Auto) 10.2 % Eos % (Auto) 1.1 % Baso % (Auto) 0.5 % Neut # (Auto) 4.22 (1.40-6.50) K/uL Lymph # (Auto) 0.79 L (1.20-3.40) K/uL Kings # (Auto) 0.58 (0.11-0.59) K/uL Eos # (Auto) 0.06 (0.00-0.50) K/uL Baso # (Auto) 0.03 (0.00-0.20) K/uL Immature Gran # (Auto) 0.01 (0.01-0.20) K/uL Sodium 137 (136-145) mmol/L Potassium 3.5 (3.5-5.1) mmol/L Chloride 106 (98-107) mmol/L Carbon Dioxide 23 (21-32) mmol/L Anion Gap 8 (3-11) BUN 9 (6-23) mg/dl Creatinine 0.77 (0.6-1.2) mg/dl Est Cr Clr Drug Dosing 61.8 ml/min Est GFR ( Amer) 93.3 ml/min Est GFR (Non-Af Amer) 80.5 ml/min BUN/Creatinine Ratio 11.7 (10-20) Glucose 97 (70-99(Fasting)) mg/dl Calcium 10.2 (8.6-10.3) mg/dl Total Bilirubin 0.9 (0.2-1.0) mg/dl AST 139 H (13-39) U/L ALT 69 H (7-52) U/L Alkaline Phosphatase 195 H (34-104) U/L Troponin I High Sens 6.5 (0-14) pg/ml Total Protein 8.3 (6.0-8.3) gm/dl Albumin 4.2 (3.4-5.0) gm/dl Globulin 4.1 H (2.5-4.0) gm/dl Albumin/Globulin Ratio 1.0 (0.9-2) Lipase 209 H (11-82) U/L SARS-CoV-2 (PCR) NEGATIVE (Negative) Influenza Type A (PCR) Negative (Neg) Influenza Type B (PCR) Negative (Neg) RSV (RT-PCR) Negative (Neg) Administered Medications Lactated Ringer's (Lr) 1,000 mls @ 80 mls/hr IV .[id number] TIFFANIE Stop: 10/26/23 17:14 Last Admin: 10/25/23 16:20 Dose: 80 mls/hr Documented By: CPB Discontinued Medications Pantoprazole Sodium 40 mg/ (Syringe) 10 mls @ 5 mls/min IV NOW ONE Stop: 10/25/23 12:48 Last Admin: 10/25/23 12:59 Dose: 5 mls/min Documented By: TAMIE Ioversol (Optiray 320 100ml) 93 ml IV ONCE ONE Stop: 10/25/23 13:21 Last Admin: 10/25/23 13:21 Dose: 93 ml Documented By: CARLOS Ondansetron HCl (Ondansetron Inj 2 Mg/Ml 2 Ml Vial) 4 mg IV NOW STA Stop: 10/25/23 12:48 Last Admin: 10/25/23 12:54 Dose: 4 mg Documented By: TAMIE Imaging Data Radiologist's Impression: Abdomen/Pelvis CT 10/25/23 12:47 CT abd pelvis IV con only CLINICAL HISTORY: epigastric/LUQ pain TECHNIQUE: Helical axial images of the abdomen and pelvis were obtained and displayed. Automated dose lowering techniques and/or adjustment according to patient size were utilized for this exam. This exam was performed with intravenous contrast. CT DOSE: 734.97 mGy.cm COMPARISON: Comparison is made to CT abdomen pelvis 08/11/2018 FINDINGS: Lower chest: Bibasilar atelectasis versus scarring is seen. Liver: Unremarkable. No focal lesions are seen. Gallbladder and biliary tree: No calcified gallstones. Normal caliber wall. There are ducts measure up to 14 mm in diameter. Pancreas: Unremarkable, no focal lesions. Spleen: Unremarkable. Adrenals: Unremarkable. Kidneys and ureters: Renal cysts are seen. Bladder: Unremarkable. Reproductive organs: Unremarkable. Bowel: Diverticulosis is seen without diverticulitis. The appendix is normal. There is a small hiatal hernia. Lymph nodes Retroperitoneal: Subcentimeter lymph nodes are noted. Pelvic: Unremarkable. Mesenteric: Unremarkable. Peritoneum: Normal. Vessels: Atherosclerotic calcifications are seen. Abdominal wall: Unremarkable. Bones: Bilateral pelvic ramus fractures are noted. Degenerative changes are seen in the spine. IMPRESSION: 1. Interval enlargement of the common bile duct with enlargement of the intrahepatic bile ducts as well. Findings may represent sphincter of Oddi dysfunction versus choledocholithiasis, no radiodense stones are seen. MRCP can be performed to exclude choledocholithiasis. 2. There is a uewby-og-tarngbun hiatal hernia, clinical correlation for reflux is recommended in this patient with epigastric pain. Otherwise no acute abnormalities are seen to explain epigastric pain. 3. Nonspecific prominence of the retroperitoneal and adrian hepatis nodes. 4. Diverticulosis without diverticulitis. ACT 112: Negative or not required by law. Electronically signed by: Jovon Quintero M.D. 10/25/2023 2:05 PM Discharge Plan Visit Data Chief Complaint: Illness Stated Complaint: THROWING UP, STOMACH PAIINS, WEAK ED Provider: Raj Sheth Discharge Problem: Choledocholithiasis, Elevated LFTs, Elevated lipase Forms Stand Alone Forms: [employer] Prescriptions Prescriptions: No Action albuterol sulfate 2.5 mg /3 mL (0.083 %) solution for nebulization 2.5 mg inhalation Q4H PRN (Reason: Shortness Of Breath Or Wheezing) Qty: 150 5RF albuterol sulfate [Ventolin HFA] 90 mcg/actuation HFA aerosol inhaler 2 puff INHALATION QID PRN (Reason: Bronchodilation) Qty: 8.5 5RF ipratropium-albuterol 0.5 mg-3 mg(2.5 mg base)/3 mL solution for nebulization 3 ml inhalation Q4H PRN (Reason: wheezing) Qty: 180 1RF Tezspire 210 mg/1.91 mL (110 mg/mL) pen injector 210 mg subcut Q4WK Qty: 1.91 11RF Rx Instructions: Tezspire pen approved by [employer]- coverage dates 02/10/23-07/30/23 (faxing copy of RODGER) Spiriva Respimat 2.5 mcg/actuation mist 2 puff INH QAM Qty: 4 2RF montelukast [Singulair] 10 mg tablet 10 mg PO HS Qty: 90 3RF omeprazole 40 mg capsule,delayed release(DR/EC) 40 mg PO BID Qty: 60 5RF gabapentin [Neurontin] 300 mg capsule 300 mg PO TID Qty: 270 3RF oxycodone-acetaminophen 10-325 mg tablet 1 tab PO Q6H PRN (Reason: Pain) Qty: 120 0RF carisoprodol [Soma] 350 mg tablet 350 mg PO BID PRN (Reason: muscle pain) Qty: 60 1RF metronidazole 500 mg tablet 500 mg PO BID 7 Days Qty: 14 0RF Rx Instructions: unable to verify 10/25/23 ([facility]) nebulizer accessories Kit See Rx Instructions .Route Qty: 1 2RF Rx Instructions: As directed estradiol 0.01 % (0.1 mg/gram) cream 1 g vaginal .COMPLEX Qty: 42.5 1RF Rx Instructions: 1 g vaginally; 2 days per week vaginally. budesonide-formoterol [Symbicort] 160-4.5 mcg/actuation HFA aerosol inhaler 1 puff INH BID Qty: 10.2 5RF metoprolol succinate 100 mg tablet extended release 24 hr 100 mg PO QAM ibuprofen [Advil] 200 mg Tablet 400 mg PO Q6H PRN (Reason: Pain) Excedrin Extra Strength 250-250-65 mg Tablet 1 - 2 tab PO Q6H PRN (Reason: Pain) trazodone 50 mg tablet 50 mg PO HS PRN (Reason: Sleep) Rx Instructions: 1-2 tabs PO qhs prn sleep; cholecalciferol (vitamin D3) 1,250 mcg (50,000 unit) capsule 50,000 unit PO WK Rx Instructions: 50,000 units orally once weekly; Referrals Referrals: Kala Yarbrough MD [Primary Care Provider] -
[2023-10-25] MEDS: PANTOprazole 40 MG in SYRINGE 0 ML IV ONE (12:59)
[2023-10-25] MEDS: OPTIRAY 320 100ml IV ONE (13:21)
--- NOTE | 2023-10-25 14:06 | CT Scan Report ---
CT abd pelvis IV con only CLINICAL HISTORY: epigastric/LUQ pain TECHNIQUE: Helical axial images of the abdomen and pelvis were obtained and displayed. Automated dose lowering techniques and/or adjustment according to patient size were utilized for this exam. This e xam was performed with intravenous contrast. CT DOSE: 734.97 mGy.cm COMPARISON: Comparison is made to CT abdomen pelvis 08/11/2018 FINDINGS: Lower chest: Bibasilar atelectasis versus scarring is seen. Liver: Unremarkable. No focal lesions are seen. Gallbladder and biliary tree: No calcified gallstones. Normal caliber wall. There are ducts measure u p to 14 mm in diameter. Pancreas: Unremarkable, no focal lesions. Spleen: Unremarkable. Adrenals: Unremarkable. Kidneys and ureters: Renal cysts are seen. Bladder: Unremarkable. Reproductive organs: Unremarkable. Bowel: Diverticulosis is seen without diverticulitis. The appendix is normal. There is a small hiatal hernia. Lymph nodes Retroperitoneal: Subcentimeter lymph nodes are noted. Pelvic: Unremarkable. Mesenteric: Unremarkable. Peritoneum: Normal. Vessels: Atherosclerotic calcifications are seen. Abdominal wall: Unremarkable. Bones: Bilateral pelvic ramus fractures are noted. Degenerative changes are seen in the spine. IMPRESSION: 1. Interval enlargement of the common bile duct with enlargement of the intrahepatic bile ducts as w ell. Findings may represent sphincter of Oddi dysfunction versus choledocholithiasis, no radiodense s tones are seen. MRCP can be performed to exclude choledocholithiasis. 2. There is a fzmdl-is-pjwcvllb hiatal hernia, clinical correlation for reflux is recommended in thi s patient with epigastric pain. Otherwise no acute abnormalities are seen to explain epigastric pain. 3. Nonspecific prominence of the retroperitoneal and adrian hepatis nodes. 4. Diverticulosis without diverticulitis. ACT 112: Negative or not required by law. Electronically signed by: Jovon Quintero M.D. 10/25/2023 2:05 PM
--- NOTE | 2023-10-25 15:09 | History & Physical Report ---
Date of Service October 25, 2023 Assessment & Plan (1) Sphincter of Oddi dysfunction: Plan: Vomiting and epigastric pain developed the evening of 10/23 No leukocytosis; afebrile Elevated transaminases: AST 139, ALT was 69, alk phos 195 Elevated lipase lipase at 209 A/P CT revealed unremarkable pancreas; noted enlargement of the common bile duct, which may represent sphincter of Oddi dysfunction vs choledocholithiasis MRCP revealed no evidence of ductal stone in the CBD; suggested the new dilation may be a result of sphincter of Oddi dysfunction Keep n.p.o. for now, then advance to low fat diet as tolerated Acetaminophen p.o. q6h as needed for pain 1-3 Dilaudid IV q4h as needed for breakthrough pain IVF with LR at 80mL/hr Gastroenterology consulted Will hold off on prescribing CCB's or nitrates given patient is currently on metoprolol A.m. CBC, BMP (2) GERD (gastroesophageal reflux disease): Plan: Converted omeprazole 40 mg p.o. twice daily --> pantoprazole 40 mg IV twice daily (3) Gastroparesis: Plan: Noted on GI visit June 2023 Reglan was discussed at that time, but patient elected to try lifestyle modifications first (4) Postmenopausal bleeding: Plan: Patient is currently following with gynecology outpatient Hysterectomy scheduled (5) Severe persistent asthma: Plan: Continue home inhalers (6) Hypertension: Plan: Continue metoprolol Plan Disposition: Admit to [facility] telemetry Full code Keep n.p.o. for now VTE PPx: SCDs History of Present Illness Chief Complaint: Epigastric pain, N/V Primary Care Provider: Kala Yarbrough MD Shahnaz is a 67-year-old female with PMH of anxiety, asthma, cardiomyopathy, chronic back pain, GERD, HTN, gastroparesis, and postmenopausal bleeding. She presented for vomiting and epigastric pain x 2 days. Her epigastric pain is mainly in the left upper quadrant; she describes it as a burning, achy pain that comes and goes. Radiation along the left flank towards the back. She does endorse some back pain, but is unsure if it is whether from sleeping wrong or consistently throwing up. She rates the pain 7/10 at present. She has been throwing up green/yellow bile intermittently. She has been taking oxycodone twice daily for pain, as well as Advil intermittently; which has not been helping. She also took Excedrin (2 total tablets) for her headache yesterday. However, despite taking these medications she has been throwing up most of her medications. The epigastric pain is worse with eating. She did not take any of her regular morning medications today, except for her 1 inhaler. No recent change in medications. She has been tolerating fluids but not liquids. No PMH of abdominal surgeries. No PMH of gastric ulcers. Patient does note that she had a D&C last month for her ongoing vaginal discharge, and has a full hysterectomy scheduled for next month. She also notes she has been having frequent iron infusions (3 over the past 1.5 months). Patient is mildly tachycardic in the 101 bpm at time of admission; vitals otherwise stable. ED course: Zofran 4 mg IV Pantoprazole 40 mg IV ROS: Patient endorses hot/cold flashes (similar to menopause), epigastric and LUQ pain, vomiting (green & yellow bile), dizziness/lightheadedness, PENNY, light sensitivity in the morning, productive cough after inhaler, and vaginal discharge. Patient denies night-sweats, changes in vision (blurry vision, diplopia, loss of vision), chest pain, pain in left shoulder, SOB, hematemesis, diarrhea, blood in urine/stool, burning with urination, dysuria, or N/T in arms or legs. Allergies Allergy/AdvReac Type Severity Reaction Status Date / Time Horse/Equine Containing AdvReac Unknown Skin test Verified 10/12/23 12:29 Products positive Home Medications Medication Instructions Recorded Confirmed Type albuterol sulfate 2.5 mg/3 mL 2.5 mg (3 mL) inhalation Q4H PRN 04/07/20 10/25/23 Rx (0.083 %) solution for nebulization Shortness Of Breath Or Wheezing #150 mL gnrwrea-gbuekyjstgske-igueoylf 250 1 - 2 tab PO Q6H PRN Pain 03/08/22 10/25/23 History mg-250 mg-65 mg tablet (Excedrin Extra Strength) ibuprofen 200 mg tablet (Advil) 400 mg PO Q6H PRN Pain 03/08/22 10/25/23 History metoprolol succinate 100 mg 100 mg PO QAM 03/08/22 10/25/23 History tablet,extended release 24 hr nebulizer accessories #1 ea 01/20/23 10/10/23 Rx albuterol sulfate 90 mcg/actuation 2 puff inhalation QID PRN 02/01/23 10/25/23 Rx aerosol inhaler (Ventolin HFA) Bronchodilation #8.5 grams budesonide-formoterol HFA 160 1 puff inhalation BID #10.2 grams 02/01/23 10/25/23 Rx mcg-4.5 mcg/actuation aerosol inhaler (Symbicort) ipratropium 0.5 mg-albuterol 3 mg 3 ml inhalation Q4H PRN wheezing 03/06/23 10/25/23 Rx (2.5 mg base)/3 mL nebulization #180 mL soln tezepelumab-ekko 210 mg/1.91 mL 210 mg (1.91 mL) subcut Q4WK #1.91 04/10/23 10/25/23 Rx (110 mg/mL) subcutaneous pen mL injector (Tezspire) estradiol 0.01% (0.1 mg/gram) 1 g vaginal .COMPLEX #42.5 grams 04/18/23 10/25/23 Rx vaginal cream tiotropium bromide 2.5 2 puff inhalation QAM #4 grams 05/08/23 10/25/23 Rx mcg/actuation mist for inhalation (Spiriva Respimat) montelukast 10 mg tablet 10 mg PO HS #90 tabs 08/09/23 10/25/23 Rx (Singulair) omeprazole 40 mg capsule,delayed 40 mg PO BID #60 caps 08/30/23 10/25/23 Rx release cholecalciferol (vitamin D3) 1,250 50,000 unit PO WK 10/02/23 10/25/23 History mcg (50,000 unit) capsule trazodone 50 mg tablet 50 mg PO HS PRN Sleep 10/02/23 10/25/23 History gabapentin 300 mg capsule 300 mg PO TID #270 caps 10/16/23 10/25/23 Rx (Neurontin) oxycodone-acetaminophen 10 mg-325 1 tab PO Q6H PRN Pain #120 tabs 10/20/23 10/25/23 Rx mg tablet carisoprodol 350 mg tablet (Soma) 350 mg PO BID PRN muscle pain #60 10/23/23 10/25/23 Rx tabs Past Med/Surg History Medical History (Updated 10/25/23 @ 20:18 by Julius Damon PA-C) Postmenopausal bleeding UTI (urinary tract infection) currently on Cipro History of nephrolithiasis Severe persistent asthma controlled w/ daily inhaler use Frequent unifocal PVCs Cardiomyopathy LVEF 50% to 55% on Echo 04/14/22 -- Possibly tachycardia-induced per cardio records Hiatal hernia Mixed conductive and sensorineural hearing loss LPRD (laryngopharyngeal reflux disease) Allergic rhinitis Hypertension Iron deficiency anemia iron infusion weekly [place] Osteoporosis Chronic back pain Hepatitis C hx ~2018 >> Treated with [facility] GERD (gastroesophageal reflux disease) Anxiety Cervical disc disease Surgical History Hx of dilation and curettage x2 S/P total knee replacement rt History of esophagogastroduodenoscopy (EGD) PT THOUGHT SHE HEARD DR. JAUREGUI SAY HE "DIDN'T WANT TO EVER GO DOWN HER THROAT AGAIN, BUT ISN'T 100% SURE THAT THAT IS WHAT HE SAID. THOUGHT HE MAY HAVE MENTIONED BREATHING ISSUES. BUT NO ONE TOLD HER ANYTHING AFTERWARD." History of neck surgery History of foot surgery History of sinus surgery Status post thoracotomy L lung with biopsy (negative) History of bilateral tubal ligation History of open reduction and internal fixation (ORIF) procedure left foot (+ plate) Status post cervical spinal fusion Neck movement good "but sometimes it cracks" History of cystoscopy Status post cystoscopy with ureteral stent placement History of lithotripsy History of colonoscopy History of tonsillectomy and adenoidectomy History of myringotomy R/L Status post correction of deviated nasal septum History of bilateral cataract extraction Family History Father Family history of diabetes mellitus Hypertension Coronary heart disease Prostate cancer Cancer Heart disease Myocardial infarction Mother Hypertension COPD (chronic obstructive pulmonary disease) Aunt Asthma Allergic rhinitis Hypertension Heart disease Myocardial infarction Other No family history of allergies No family history of bleeding disorder Denies family history of Ovarian cancer Hearing loss Breast cancer Colorectal cancer Uterine cancer Stroke Social History Smoking Status: Never smoker Tobacco Type: Cigarettes Age Started Using Tobacco: 22; Age Quit Using Tobacco: 23; Cigarettes Per Day: 1-2 cigs/day; Second Hand Exposure: No; Do You Dip or Chew Tobacco: No; Hx Alcohol Use: No Hx Substance Use: No Preferred Language: Omani Communication Ability: Effective Visual Impairment: No Limitations Uppers Edge Burnisher Required: No Beliefs That Will Affect Care: None marital status: Current Living Situation: Spouse current occupational status: retired How many Children do You have: 3 Feels Safe at Home: Yes Diet: regular caffeine: Yes Dental Care, Regularly: Yes Physical Activity Frequency: Does not Exercise Seatbelt Use: always Assistive Devices: Glasses Review of Systems Review of Systems: See HPI above Physical Exam Physical Exam: General: no acute distress; pleasant affect; non-toxic appearing; well- nourished; cooperative HEENT: normocephalic, atraumatic; no scleral icterus; PERRLA w/ EOMs intact; moist mucus membrane; vision and hearing grossly intact Neck: supple; no lymphadenopathy; trachea midline Skin: warm, dry without signs of tenting; no cyanosis; no rashes, bruising, lesions, or erythema noted CV: chest wall NTP; RR, mildly tachycardic at 100 bpm; S1/S2 normal; no murmurs/rubs/gallops; pulses intact and symmetric at radial, DP, and PT Lungs: no acute respiratory distress; symmetrical chest wall expansion; clear breath sounds across all lung contreras w/o adventitious sounds; no wheezing ABD: Soft, NTP; BS present; LUQ and LLQ TTP; RUQ and RLQ NTP; negative Hoyt sign; negative McBurney's point tenderness; negative Rovsing sign; no signs of bruises or rashes on the abdomen MSK: no tics or fasciculations; no edema noted in the LEs b/l, nonerythematous Neuro: A&Ox3; normal mood and affect; fluent speech; no focal deficits; sensation grossly intact in the LEs b/l Results & Data Results & Data Vital Signs (Past 12 Hours) Vital Signs Temp Pulse Pulse Resp BP BP Pulse Ox 10/25/23 12:57 101 H 19 134/88 98 10/25/23 10:45 36.6 C 106 H 20 118/74 97 O2 Del Method 10/25/23 12:57 Room Air 10/25/23 10:45 Room Air Laboratory Results Abnormal lab results 10/25/23 10/25/23 Range/Units 11:22 11:26 MCHC 31.5 L (32.0-36.0) g/dL RDW Std Deviation 57.1 H (36.4-46.3) fL RDW Coeff of Amelia 17.6 H (11.5-14.5) % Lymph # (Auto) 0.79 L (1.20-3.40) K/uL AST 139 H (13-39) U/L ALT 69 H (7-52) U/L Alkaline Phosphatase 195 H (34-104) U/L Globulin 4.1 H (2.5-4.0) gm/dl Lipase 209 H (11-82) U/L Diagnostic Findings Abdomen/Pelvis CT 10/25/23 12:47 CT abd pelvis IV con only CLINICAL HISTORY: epigastric/LUQ pain TECHNIQUE: Helical axial images of the abdomen and pelvis were obtained and displayed. Automated dose lowering techniques and/or adjustment according to patient size were utilized for this exam. This exam was performed with intravenous contrast. CT DOSE: 734.97 mGy.cm COMPARISON: Comparison is made to CT abdomen pelvis 08/11/2018 FINDINGS: Lower chest: Bibasilar atelectasis versus scarring is seen. Liver: Unremarkable. No focal lesions are seen. Gallbladder and biliary tree: No calcified gallstones. Normal caliber wall. There are ducts measure up to 14 mm in diameter. Pancreas: Unremarkable, no focal lesions. Spleen: Unremarkable. Adrenals: Unremarkable. Kidneys and ureters: Renal cysts are seen. Bladder: Unremarkable. Reproductive organs: Unremarkable. Bowel: Diverticulosis is seen without diverticulitis. The appendix is normal. There is a small hiatal hernia. Lymph nodes Retroperitoneal: Subcentimeter lymph nodes are noted. Pelvic: Unremarkable. Mesenteric: Unremarkable. Peritoneum: Normal. Vessels: Atherosclerotic calcifications are seen. Abdominal wall: Unremarkable. Bones: Bilateral pelvic ramus fractures are noted. Degenerative changes are seen in the spine. IMPRESSION: 1. Interval enlargement of the common bile duct with enlargement of the intrahepatic bile ducts as well. Findings may represent sphincter of Oddi dysfunction versus choledocholithiasis, no radiodense stones are seen. MRCP can be performed to exclude choledocholithiasis. 2. There is a ssjsz-aa-uifrqysd hiatal hernia, clinical correlation for reflux is recommended in this patient with epigastric pain. Otherwise no acute abnormalities are seen to explain epigastric pain. 3. Nonspecific prominence of the retroperitoneal and adrian hepatis nodes. 4. Diverticulosis without diverticulitis. ACT 112: Negative or not required by law. Electronically signed by: Jovon Quintero M.D. 10/25/2023 2:05 PM Code Status & VTE Plan Code Status Full code VTE Prophylaxis Plan VTE Prophylaxis will be ordered: Yes Supervising Physician Co-Signing Physician Notes Patient seen and examined, chart reviewed, case discussed with Julius Damon and I agree with the assessment and plan as above except as otherwise noted Labs and images reviewed 67-year-old female with history of asthma, cardiomyopathy, gastroparesis who presents with 2 days of nausea/vomiting/epigastric pain and left upper quadrant discomfort with greenish emesis and some bile. Advil/oxycodone have not improved her symptoms. She endorses chills and hot flashes, does not think she has had a fever. On ER evaluation she has elevated transaminases, and unremarkable pancreas, and enlargement of the CBD without clear evidence of stones. Case was discussed with GI while in the ER was recommended for medical admission pending MRCP which may not be able to be performed for several hours. At bedside her nausea is beginning to return, pain continues to be around 4/10. Abdomen is tender in the epigastrium, no rebound or guarding. Skin is warm and dry. Tachycardic, normotensive.Ultimately if patient requires ERCP/has evidence of choledocholithiasis will require transfer as this is not currently available. N.p.o., IV FM at this time. Lipase is mildly elevated in the setting of vomiting, ddx includes mild gallstone induced pancreatitis although no evidence radiographically of pancreatic infiltration/inflammation at time of admission. Agree with assessment and management as noted above. PG Care Time/CCT Total # of Minutes Spent Total Time Spent with Patient: Total time spent is greater than 50% in coordination of care (as documented) at patient's floor/unit and/or counseling patient: Coding [place] [address] INT INP/OBS CARE 2/55MIN Patient Type Established History Comprehensive Exam Comprehensive Medical Decision Making Moderate Complexity Diagnoses Sphincter of Oddi dysfunction K83.4 GERD (gastroesophageal reflux disease) K21.9 Gastroparesis K31.84 Postmenopausal bleeding N95.0 Severe persistent asthma J45.50 Hypertension I10
--- NOTE | 2023-10-25 16:17 | Electrocardiogram Report ---
Test Reason : Blood Pressure : / mmHG Vent. Rate : 106 BPM Atrial Rate : 106 BPM P-R Int : 168 ms QRS Dur : 078 ms QT Int : 348 ms P-R-T Axes : 077 078 071 degrees QTc Int : 462 ms Sinus tachycardia Low voltage QRS Borderline ECG When compared with ECG of 29-AUG-2023 10:45, No significant change was found Confirmed by Moncho Velazquez ([id number]) on 10/25/2023 4:17:35 PM Referred By: Confirmed By:Moncho Velazquez
[2023-10-25] MEDS: LACTATED RINGER'S 1,000 ML IV SCH (16:20)
[2023-10-25 17:23] LABS: Troponin I High Sensitivity 6.5 pg/ml (0-14)
[2023-10-25] MEDS ORDERED: ONDANSETRON INJ 2 MG/ML 2 ML VIAL IV PRN (19:47)
[2023-10-25] MEDS ORDERED: ALBUTEROL 0.083% NEBU SOLN 3 ML VIAL INH PRN (19:47)
[2023-10-25] MEDS ORDERED: CARISOPRODOL 350 MG TABLET PO PRN (19:47)
[2023-10-25] MEDS ORDERED: HYDROmorphone INJ 0.5 MG/0.5 ML SYR IV PRN (19:47)
[2023-10-25] MEDS ORDERED: ALBUTEROL HFA 8 GM INHALER INH PRN (19:47)
--- NOTE | 2023-10-25 19:47 | Magnetic Resonance Report ---
MR MRCP CLINICAL HISTORY: r/o choledoco no ERCP available TECHNIQUE: Multiplanar multisequence MR images of the abdomen were obtained, as per MRCP protocol. . COMPARISON: Comparison is made to CT abdomen pelvis 10/25/2023 and MRCP 10/22/2018 FINDINGS: Exam is limited by patient motion. Lower chest: No acute abnormality Liver: Unremarkable. No focal lesions are seen. Gallbladder and biliary tree: No calcified gallstones. Normal caliber wall. Common bile duct is enlar ged measuring up to 14 mm. No filling defects are seen. Pancreas: Unremarkable, no focal lesions. Spleen: Unremarkable. Adrenals: Unremarkable. Kidneys and ureters: Unremarkable. Bowel: A hiatal hernia is seen. Lymph nodes Retroperitoneal: Subcentimeter lymph nodes are noted. Mesenteric: Unremarkable. Peritoneum: Normal Vessels: Unremarkable. Abdominal wall: Unremarkable. Bones: Unremarkable. IMPRESSION: 1. Redemonstration of dilated common bile duct with no evidence of ductal stone. Dilation is new fro m prior CT and MRCP and may result from sphincter of Oddi dysfunction. 2. Hiatal hernia. 3. Nonspecific retroperitoneal and adrian hepatis nodes. ACT 112: Negative or not required by law. Electronically signed by: Jovon Quintero M.D. 10/25/2023 7:45 PM
[2023-10-25] MEDS: HYDROmorphone INJ 1 MG/ML SYRINGE IV PRN (21:25)
[2023-10-25] MEDS: PANTOprazole 40 MG in SYRINGE 0 ML IV SCH (21:49)
[2023-10-25] MEDS: GABAPENTIN 300 MG CAP PO SCH (21:51)
[2023-10-25] MEDS: MONTELUKAST SODIUM 10 MG TABLET PO SCH (21:51)
[2023-10-26] MEDS: METOPROLOL SUCC 50MG EXT REL TAB PO STA (00:13)
[2023-10-26] MEDS: ACETAMINOPHEN 325 MG TAB PO PRN (00:15)
[2023-10-26] MEDS: ONDANSETRON INJ 2 MG/ML 2 ML VIAL IV PRN (00:40)
[2023-10-26 07:07] LABS: Basophils # (auto) 0.02 K/uL (0.00-0.20); Basophils % (auto) 0.2 %; Eosinophils # (auto) 0.02 K/uL (0.00-0.50); Eosinophils % (auto) 0.2 %; Hematocrit (blood only) 39.1 % (37.0-47.0); Hemoglobin 12.2 g/dl (12.0-16.0); Immature Granulocytes # (auto) 0.05 K/uL (0.01-0.20); Immature Granulocytes % (auto) 0.6 %; Lymphocytes # (auto) 0.73 K/uL (1.20-3.40); Mean Corpuscular Hgb Conc 31.2 g/dL (32.0-36.0); Mean Corpuscular Volume 89.7 fL (80.0-100.0); Mean Platelet Volume 11.5 fL (9.4-12.4); Monocytes # (auto) 0.99 K/uL (0.11-0.59); Monocytes % (auto) 12.1 %; Neutrophils # (auto) 6.34 K/uL (1.40-6.50); Neutrophils % (auto) 77.9 %; Platelet Count 119 K/uL (130-400); RDW Coefficient of Variation 18.1 % (11.5-14.5); RDW Standard Deviation 59.7 fL (36.4-46.3); Red Blood Count 4.36 M/uL (4.20-5.40); White Blood Count 8.15 K/ul (4.8-10.8)
[2023-10-26 07:32] LABS: BUN Creatinine Ratio 9.9 (10-20); Calcium 9.7 mg/dl (8.6-10.3); Creatinine Clr Calc Pharmacy 56.8 ml/min; Est GFR (African American) 87.7 ml/min; Est GFR (Non-African American) 75.7 ml/min; Magnesium 1.7 mg/dl (1.7-2.4); Potassium 4.6 mmol/L (3.5-5.1)
[2023-10-26] MEDS: ACETAMINOPHEN 1,000 MG/100 ML VIAL IV PRN (08:38)
[2023-10-26] MEDS: FLUTICASONE/VILANTEROL 200/25MCG 14 PUFFS/INHALER INH SCH (08:41)
[2023-10-26] MEDS: UMECLIDINIUM BROMIDE 62.5MCG/BLISTER 7 PUFFS/INHALER INH SCH (08:41)
--- NOTE | 2023-10-26 10:06 | Gastrointestinal Consultation ---
Date of Consultation October 26, 2023 Assessment & Plan (1) Elevated LFTs: (2) Abdominal pain: (3) Nausea and vomiting: (4) Abnormal findings on imaging of biliary tract: Plan Patient is a 67 y.o. female with a history of GERD and gastroparesis admitted with abdominal pain, nausea and bilious emesis and biliary ductal dilation with negative MRCP for choledocholithiasis. Diff dx: microlithiasis vs recently passed gall stone vs other. 1. Advance diet to low fat diet as tolerated. 2. Continue supportive care with antiemetics and analgesics. 3. Continue Pantoprazole 40 mg IV BID. 4. Outpatient EUS with ERCP if clinically indicated. 5. Supportive care per primary team. Thank you for allowing us to participate in the care of this patient. If you have any questions or concerns, please do not hesitate to contact us. Supervising Physician Co-Signing Physician Notes Agree with SEA Montano Abd: soft, tender ND,+BS Continue currentcontinue current therapy and supportive care Outpatient EUS +/- ERCP To be arranged History of Present Illness Reason for Consultation: SOD Requesting Physician: Julius Damon PA-C Attending Physician: Preet Carreon MD History of Present Illness Patient is a 67 y.o. female known to our office in regard to history of GERD and gastroparesis admitted with abdominal pain and nausea with vomiting, bilious in nature beginning two days [employer]. She states the pain is sharp and rated as 8/10 in intensity at present across her upper abdomen. She did undergo laboratory testing and CT imaging upon arrival that demonstrated elevated liver panel and dilated CBD measuring up to 14mm. MRCP demonstrated persistent CBD dilation without filling defect. Labs this morning were as follows: white blood cell count 8.15, Hgb 12.2, Hct 39.1, TB 0.9, AST 139, ALT 69, and ALP 195. Lipase yesterday slightly elevated at 209. She has been placed on NPO status and started on Pantoprazole 40 mg IV BID. Allergies Allergy/AdvReac Type Severity Reaction Status Date / Time Horse/Equine Containing AdvReac Unknown Skin test Verified 10/12/23 12:29 Products positive Home Medications Medication Instructions Recorded Confirmed Type albuterol sulfate 2.5 mg/3 mL 2.5 mg (3 mL) inhalation Q4H PRN 04/07/20 10/25/23 Rx (0.083 %) solution for nebulization Shortness Of Breath Or Wheezing #150 mL zbugohm-xaycqvwiirpup-mcpemhbf 250 1 - 2 tab PO Q6H PRN Pain 03/08/22 10/25/23 History mg-250 mg-65 mg tablet (Excedrin Extra Strength) ibuprofen 200 mg tablet (Advil) 400 mg PO Q6H PRN Pain 03/08/22 10/25/23 History metoprolol succinate 100 mg 100 mg PO QAM 03/08/22 10/25/23 History tablet,extended release 24 hr nebulizer accessories #1 ea 01/20/23 10/10/23 Rx albuterol sulfate 90 mcg/actuation 2 puff inhalation QID PRN 02/01/23 10/25/23 Rx aerosol inhaler (Ventolin HFA) Bronchodilation #8.5 grams budesonide-formoterol HFA 160 1 puff inhalation BID #10.2 grams 02/01/23 10/25/23 Rx mcg-4.5 mcg/actuation aerosol inhaler (Symbicort) ipratropium 0.5 mg-albuterol 3 mg 3 ml inhalation Q4H PRN wheezing 03/06/23 10/25/23 Rx (2.5 mg base)/3 mL nebulization #180 mL soln tezepelumab-ekko 210 mg/1.91 mL 210 mg (1.91 mL) subcut Q4WK #1.91 04/10/23 10/25/23 Rx (110 mg/mL) subcutaneous pen mL injector (Tezspire) estradiol 0.01% (0.1 mg/gram) 1 g vaginal .COMPLEX #42.5 grams 04/18/23 10/25/23 Rx vaginal cream tiotropium bromide 2.5 2 puff inhalation QAM #4 grams 05/08/23 10/25/23 Rx mcg/actuation mist for inhalation (Spiriva Respimat) montelukast 10 mg tablet 10 mg PO HS #90 tabs 08/09/23 10/25/23 Rx (Singulair) omeprazole 40 mg capsule,delayed 40 mg PO BID #60 caps 08/30/23 10/25/23 Rx release cholecalciferol (vitamin D3) 1,250 50,000 unit PO WK 10/02/23 10/25/23 History mcg (50,000 unit) capsule trazodone 50 mg tablet 50 mg PO HS PRN Sleep 10/02/23 10/25/23 History gabapentin 300 mg capsule 300 mg PO TID #270 caps 10/16/23 10/25/23 Rx (Neurontin) oxycodone-acetaminophen 10 mg-325 1 tab PO Q6H PRN Pain #120 tabs 10/20/23 10/25/23 Rx mg tablet carisoprodol 350 mg tablet (Soma) 350 mg PO BID PRN muscle pain #60 10/23/23 10/25/23 Rx tabs Patient History Medical History Postmenopausal bleeding UTI (urinary tract infection) currently on Cipro History of nephrolithiasis Severe persistent asthma controlled w/ daily inhaler use Frequent unifocal PVCs Cardiomyopathy LVEF 50% to 55% on Echo 04/14/22 -- Possibly tachycardia-induced per cardio records Hiatal hernia Mixed conductive and sensorineural hearing loss LPRD (laryngopharyngeal reflux disease) Allergic rhinitis Hypertension Iron deficiency anemia iron infusion weekly [place] Osteoporosis Chronic back pain Hepatitis C hx ~2018 >> Treated with Yan[facility] GERD (gastroesophageal reflux disease) Anxiety Cervical disc disease Surgical History Hx of dilation and curettage x2 S/P total knee replacement rt History of esophagogastroduodenoscopy (EGD) PT THOUGHT SHE HEARD DR. JAUREGUI SAY HE "DIDN'T WANT TO EVER GO DOWN HER THROAT AGAIN, BUT ISN'T 100% SURE THAT THAT IS WHAT HE SAID. THOUGHT HE MAY HAVE MENTIONED BREATHING ISSUES. BUT NO ONE TOLD HER ANYTHING AFTERWARD." History of neck surgery History of foot surgery History of sinus surgery Status post thoracotomy L lung with biopsy (negative) History of bilateral tubal ligation History of open reduction and internal fixation (ORIF) procedure left foot (+ plate) Status post cervical spinal fusion Neck movement good "but sometimes it cracks" History of cystoscopy Status post cystoscopy with ureteral stent placement History of lithotripsy History of colonoscopy History of tonsillectomy and adenoidectomy History of myringotomy R/L Status post correction of deviated nasal septum History of bilateral cataract extraction Family History Father Family history of diabetes mellitus Hypertension Coronary heart disease Prostate cancer Cancer Heart disease Myocardial infarction Mother Hypertension COPD (chronic obstructive pulmonary disease) Aunt Asthma Allergic rhinitis Hypertension Heart disease Myocardial infarction Other No family history of allergies No family history of bleeding disorder Denies family history of Ovarian cancer Hearing loss Breast cancer Colorectal cancer Uterine cancer Stroke Social History Smoking Status: Former smoker Tobacco Type: Cigarettes Age Started Using Tobacco: 22; Age Quit Using Tobacco: 23; Cigarettes Per Day: 1-2 cigs/day; Second Hand Exposure: No; Do You Dip or Chew Tobacco: No; Hx Alcohol Use: No Hx Substance Use: No Preferred Language: Japanese Communication Ability: Effective Visual Impairment: No Limitations Curtain Fitter Required: No Beliefs That Will Affect Care: None marital status: Current Living Situation: Spouse current occupational status: retired How many Children do You have: 3 Feels Safe at Home: Yes Diet: regular caffeine: Yes Dental Care, Regularly: Yes Physical Activity Frequency: Does not Exercise Seatbelt Use: always Assistive Devices: Denture - Upper and Glasses Review of Systems Constitutional: + fatigue; no fever and no chills Gastrointestinal: as per Subjective / HPI Physical Exam Constitutional: WD/WN, vitals as above Respiratory: normal respiratory effort, lungs clear to auscultation Cardiovascular: Rate/Rhythm: regular rate and regular rhythm Gastrointestinal (Abdomen): Inspection/Auscultation: normal bowel sounds; abdomen not distended Percussion/Palpation: + abdomen tender and abdomen soft; no guarding and abdomen not rigid Psychiatric: A+Ox3, euthymic affect Results & Data Vital Signs (Past 12 Hours) Vital Signs Temp Pulse Pulse Resp BP BP Pulse Ox 10/26/23 08:01 39.4 C H 114 H 18 132/76 94 10/26/23 07:33 110 H 10/26/23 04:18 37.1 C 116 H 20 133/79 96 10/25/23 23:57 37.1 C 124 H 20 127/82 98 O2 Del Method 10/26/23 08:01 Room Air 10/26/23 07:33 10/26/23 04:18 Room Air 10/25/23 23:57 Room Air PG Care Time/CCT Total # of Minutes Spent Total Time Spent with Patient: Total time spent is greater than 50% in coordination of care (as documented) at patient's floor/unit and/or counseling patient: Coding Level of Care Code 86814 INT INP/OBS CARE 3/75MIN Diagnoses Elevated LFTs R79.89 Abdominal pain R10.9 Nausea and vomiting R11.2 Abnormal findings on imaging of biliary tract R93.2
[2023-10-26] MEDS: METOPROLOL SUCC 50MG EXT REL TAB PO SCH (11:14)
[2023-10-26] MEDS: SODIUM CHLORIDE 0.9% 500 ML IV ONE ×2 (11:37→15:19)
[2023-10-26 12:14] LABS: Albumin Level 3.5 gm/dl (3.4-5.0); Bilirubin Direct 0.3 mg/dl (0-0.2); Bilirubin,Total 0.7 mg/dl (0.2-1.0)
[2023-10-26 12:20] LABS: Total Protein 7.3 gm/dl (6.0-8.3)
[2023-10-26] MEDS: PIPER/TAZO 4.5g in D5W MINI-B 100 ML IV ONE (12:22)
[2023-10-26] MEDS: SODIUM CHLORIDE 0.9% 1,000 ML IV ONE (15:53)
[2023-10-26] MEDS: PIPERACILLIN/TAZOBACTAM 4.5 GM in DEXTROSE 5% MINI-B 100 ML IV SCH (17:30)
--- NOTE | 2023-10-26 18:14 | Hospitalist Progress Note ---
Date of Service October 26, 2023 Assessment & Plan (1) Sphincter of Oddi dysfunction: Plan: - Presented to ER due to vomiting and epigastric pain that developed evening of 10/23 without leukocytosis and afebrile - MRCP revealed no evidence of ductal stone in the CBD. Suggested dilation is from sphincter of Oddi dysfunction. - Patient became hypotensive, febrile, and had mildly elevated transaminases -- Concern for sepsis -- 2 L IVF, started Zosyn, lactic acid normal, LFTs improving, afebrile -- Cautious with fluid resuscitation due to cardiomyopathy with EF= 45-50% - Acetaminophen p.o. q6h as needed for pain 1-3 - Dilaudid IV q4h as needed for breakthrough pain - Patient is currently on metoprolol for HTN, consider transitioning to CCB or nitrates - GI consults -- recommend outpatient EUS with ERCP (2) GERD (gastroesophageal reflux disease): Plan: Converted omeprazole 40 mg p.o. twice daily --> pantoprazole 40 mg IV twice daily (3) Gastroparesis: Plan: Noted on GI visit June 2023 Reglan was discussed at that time, but patient elected to try lifestyle modifications first (4) Iron deficiency anemia: Plan: Receives scheduled iron infusions Plan Full code VTE PPx: SCDs Admission and Anticipated Discharge Date Admission Date: October 25, 2023 Subjective Patient seen and evaluated at bedside. She reports diffuse abdominal tenderness, most prominent in the right and left upper quadrants. She denies feeling feverish or having chills. Denies lightheadedness, dizziness, presyncope. There is concern for sepsis due to the patient becoming febrile, hypotensive, and mildly elevated transaminases. She endorses abdominal tenderness, but does not appear acutely ill at this time. She reports an appetite, and low-fat diet was initiated which has been well-tolerated so far. Physical Exam Physical Exam: General: No acute distress, nondiaphoretic, well-developed, well-nourished. Skin: The skin was without rashes, erythema, edema, or bruising. Cardiac: Regular rate and rhythm without murmurs gallops or rubs. Pulm: Clear to auscultation bilaterally without wheezes, rales or rhonchi. No retractions or accessory muscle use. Abdominal: Diffuse abdominal tenderness. Positive bowel sounds x 4. Soft, non- distended, without masses or organomegaly. No guarding or rebound tenderness. Extremities: Trace LE edema. Neuro: A&O x3. No focal neurological deficits. Results & Data Results & Data Vital Signs (Past 12 Hours) Vital Signs Temp Pulse Pulse Resp BP BP Pulse Ox 10/26/23 16:00 79 10/26/23 15:55 36.4 C L 77 16 107/69 98 10/26/23 15:25 36.3 C L 88 18 102/66 94 10/26/23 14:01 36.3 C L 79 16 99/63 L 99/68 L 98 10/26/23 13:12 36.8 C 83 18 82/51 L 82/53 L 95 10/26/23 12:25 36.7 C 84 16 98/66 L 96 10/26/23 10:14 36.9 C 101 H 16 82/50 L 88/58 L 94 10/26/23 08:01 39.4 C H 114 H 18 132/76 94 10/26/23 07:33 110 H O2 Del Method 10/26/23 16:00 10/26/23 15:55 Room Air 10/26/23 15:25 Room Air 10/26/23 14:01 Room Air 10/26/23 13:12 Room Air 10/26/23 12:25 Room Air 10/26/23 10:14 Room Air 10/26/23 08:01 Room Air 10/26/23 07:33 Laboratory Results Reviewed CBC Reviewed chemistries PG Care Time/CCT Total # of Minutes Spent Total Time Spent with Patient: Total time spent is greater than 50% in coordination of care (as documented) at patient's floor/unit and/or counseling patient: Coding Level of Care Code 61524 SUB INP/OBS CARE 3/50MIN Diagnoses Sphincter of Oddi dysfunction K83.4 Gastroesophageal reflux disease, unspecified whether esophagitis present K21.9 Esophagitis presence: esophagitis presence not specified Gastroparesis K31.84 Iron deficiency anemia, unspecified iron deficiency anemia type D50.9 Iron deficiency anemia type: unspecified iron deficiency (2) GERD (gastroesophageal reflux disease) Esophagitis presence: esophagitis presence not specified Qualified Code(s): K21.9 - Gastro-esophageal reflux disease without esophagitis (4) Iron deficiency anemia Iron deficiency anemia type: unspecified iron deficiency Qualified Code(s): D50.9 - Iron deficiency anemia, unspecified
[2023-10-26] MEDS: traZODone HCL 50 MG TAB PO PRN (22:08)
[2023-10-27 00:46] LABS: A calco-baum cmplx NotReported Not Detected (NotDetected); Bact fragilis Not Reported Not Detected (NotDetected); Blood Culture Id Panel See PCR Comment (NotDetected); C auris Not Reported Not Detected (NotDetected); CTX-M Resistant Gene Not Detected (NotDetected); Calbicans Not Reported Not Detected (NotDetected); Candida glabrata Not Reported Not Detected (NotDetected); Candida krusei Not Reported Not Detected (NotDetected); Cneoformans/gatti Not Reported Not Detected (NotDetected); Cparapsilosis Not Reported Not Detected (NotDetected); E cloacae compx Not Reported Not Detected (NotDetected); Efaecalis Not Reported Not Detected (NotDetected); Efaecium Not Reported Not Detected (NotDetected); Enterobacterales DETECTED (NotDetected); Enterobacterales Not Reported DETECTED (NotDetected); Escherichia coli Not Reported Not Detected (NotDetected); H influenzae Not Reported Not Detected (NotDetected); IMP Resistant Gene Not Detected (NotDetected); K aerogenes Not Reported Not Detected (NotDetected); KPC Resistant Gene Not Detected (NotDetected); Koxytoca Not Reported Not Detected (NotDetected); Kpneumoniae grp Not Reported DETECTED (NotDetected); Lmonocyt Not Reported Not Detected (NotDetected); N meningitidis Not Reported Not Detected (NotDetected); NDM Resistant Gene Not Detected (NotDetected); OXA 48 Like Resistant Gene Not Detected (NotDetected); P aeruginosa Not Reported Not Detected (NotDetected); Proteus spp Not Reported Not Detected (NotDetected); Salmonella spp Not Reported Not Detected (NotDetected); Smarcescens Not Reported Not Detected (NotDetected); Staph lugdunensis Not Reported Not Detected (NotDetected); Staph spp. Not Reported Not Detected (NotDetected); Staphaureus Not Reported Not Detected (NotDetected); Staphepi Not Reported Not Detected (NotDetected); Stenmaltophilia Not Reported Not Detected (NotDetected); Strep agal(GrpB) Not Reported Not Detected (NotDetected); Strep pneum Not Reported Not Detected (NotDetected); Strep pyog (GrpA) Not Reported Not Detected (NotDetected); Strep spp Not Reported Not Detected (NotDetected); VIM Resistant Gene Not Detected (NotDetected); mcr-1 Colistin Resistant Gene Not Detected (NotDetected)
[2023-10-27 01:13] LABS: Klebsiella pneumoniae group DETECTED (NotDetected)
[2023-10-27 07:25] LABS: Basophils # (auto) 0.03 K/uL (0.00-0.20); Basophils % (auto) 0.8 %; Eosinophils # (auto) 0.08 K/uL (0.00-0.50); Eosinophils % (auto) 2.1 %; Hematocrit (blood only) 33.8 % (37.0-47.0); Hemoglobin 10.7 g/dl (12.0-16.0); Immature Granulocytes # (auto) 0.01 K/uL (0.01-0.20); Immature Granulocytes % (auto) 0.3 %; Lymphocytes # (auto) 0.62 K/uL (1.20-3.40); Lymphocytes % (auto) 15.9 %; Mean Corpuscular Hemoglobin 28.5 pg (25.0-34.0); Mean Corpuscular Hgb Conc 31.7 g/dL (32.0-36.0); Mean Corpuscular Volume 89.9 fL (80.0-100.0); Mean Platelet Volume 11.3 fL (9.4-12.4); Monocytes # (auto) 0.43 K/uL (0.11-0.59); Neutrophils # (auto) 2.73 K/uL (1.40-6.50); Neutrophils % (auto) 69.9 %; Platelet Count 104 K/uL (130-400); RDW Coefficient of Variation 18.3 % (11.5-14.5); RDW Standard Deviation 60.3 fL (36.4-46.3); Red Blood Count 3.76 M/uL (4.20-5.40)
[2023-10-27 07:47] LABS: Albumin Globulin Ratio 0.9 (0.9-2); Albumin Level 3.3 gm/dl (3.4-5.0); BUN Creatinine Ratio 13.6 (10-20); Bilirubin,Total 0.6 mg/dl (0.2-1.0); Creatinine Clr Calc Pharmacy 58.8 ml/min; Est GFR (African American) 87.7 ml/min; Est GFR (Non-African American) 75.7 ml/min; Globulin 3.5 gm/dl (2.5-4.0); Potassium 3.6 mmol/L (3.5-5.1); Total Protein 6.8 gm/dl (6.0-8.3)
--- NOTE | 2023-10-27 15:24 | Hospitalist Progress Note ---
Date of Service October 27, 2023 Assessment & Plan (1) Sphincter of Oddi dysfunction: Plan: - Presented to ER due to vomiting and epigastric pain that developed evening of 10/23 without leukocytosis and afebrile. - MRCP revealed no evidence of ductal stone in the CBD. Suggested dilation is from sphincter of Oddi dysfunction. - Concern for sepsis as patient became hypotensive, febrile, and had mildly elevated transaminases. Improvement with fluid resuscitation and antibiotics. - Preliminary blood cultures positive for gram-negative bacilli. -- PCR serology positive for Klebsiella pneumoniae and Enterobacterales. -- Continue monitoring culture results for sensitivities. - Continue low-fat diet - Patient is currently on metoprolol for HTN, consider transitioning to CCB or nitrates - GI consult -- recommend outpatient EUS with ERCP. patient prefers this to be performed at [facility] upon discharge. (2) GERD (gastroesophageal reflux disease): Plan: Converted omeprazole 40 mg p.o. twice daily --> pantoprazole 40 mg IV twice daily (3) Gastroparesis: Plan: Noted on GI visit June 2023 Reglan was discussed at that time, but patient elected to try lifestyle modifications first (4) Iron deficiency anemia: Plan: Receives scheduled iron infusions Plan Full code VTE PPx: SCDs Admission and Anticipated Discharge Date Admission Date: October 25, 2023 Subjective Patient seen and evaluated at bedside. She reports significant improvement in her symptoms compared to yesterday. She denies any abdominal pain or tenderness at this time. She has been tolerating the low-fat diet well. She expressed interest in going home today, however we discussed waiting for blood culture sensitivities to come back to direct antibiotic management and monitor blood pressure today. She was agreeable to this. We also discussed having an outpatient EUS and ERCP, and she states her preference is [facility]. She denies chest pain, shortness of breath, any abdominal symptoms, urinary symptoms, lightheadedness, or dizziness. Physical Exam Physical Exam: General: No acute distress, nondiaphoretic, well-developed, well-nourished. Skin: The skin was without rashes, erythema, edema, or bruising. Cardiac: Regular rate and rhythm without murmurs gallops or rubs. Pulm: Clear to auscultation bilaterally without wheezes, rales or rhonchi. No retractions or accessory muscle use. Abdominal: Positive bowel sounds x 4. Soft, non-distended, without masses or organomegaly. No guarding or rebound tenderness. Extremities: Trace LE edema. Neuro: A&O x3. No focal neurological deficits. Results & Data Results & Data Vital Signs (Past 12 Hours) Vital Signs Temp Pulse Pulse Resp BP Pulse Ox O2 Del Method 10/27/23 11:23 36.5 C 95 H 18 102/70 96 Room Air 10/27/23 07:47 37.2 C 107 H 18 117/73 94 Room Air 10/27/23 07:00 103 H Laboratory Results Reviewed CBC Reviewed CMP Reviewed blood cultures PG Care Time/CCT Total # of Minutes Spent Total Time Spent with Patient: Total time spent is greater than 50% in coordination of care (as documented) at patient's floor/unit and/or counseling patient: Coding Level of Care Code 50952 SUB INP/OBS CARE 3/50MIN Diagnoses Sphincter of Oddi dysfunction K83.4 Gastroesophageal reflux disease, unspecified whether esophagitis present K21.9 Esophagitis presence: esophagitis presence not specified Gastroparesis K31.84 Iron deficiency anemia, unspecified iron deficiency anemia type D50.9 Iron deficiency anemia type: unspecified iron deficiency (2) GERD (gastroesophageal reflux disease) Esophagitis presence: esophagitis presence not specified Qualified Code(s): K21.9 - Gastro-esophageal reflux disease without esophagitis (4) Iron deficiency anemia Iron deficiency anemia type: unspecified iron deficiency Qualified Code(s): D50.9 - Iron deficiency anemia, unspecified
[2023-10-28 05:48] LABS: Basophils # (auto) 0.03 K/uL (0.00-0.20); Basophils % (auto) 0.9 %; Eosinophils % (auto) 2.9 %; Hematocrit (blood only) 32.3 % (37.0-47.0); Hemoglobin 10.1 g/dl (12.0-16.0); Immature Granulocytes # (auto) 0.01 K/uL (0.01-0.20); Immature Granulocytes % (auto) 0.3 %; Lymphocytes # (auto) 0.97 K/uL (1.20-3.40); Lymphocytes % (auto) 28.4 %; Mean Corpuscular Hemoglobin 28.5 pg (25.0-34.0); Mean Corpuscular Hgb Conc 31.3 g/dL (32.0-36.0); Mean Corpuscular Volume 91.2 fL (80.0-100.0); Monocytes # (auto) 0.44 K/uL (0.11-0.59); Monocytes % (auto) 12.9 %; Neutrophils # (auto) 1.86 K/uL (1.40-6.50); Neutrophils % (auto) 54.6 %; Platelet Count 113 K/uL (130-400); RDW Coefficient of Variation 18.1 % (11.5-14.5); RDW Standard Deviation 60.3 fL (36.4-46.3); Red Blood Count 3.54 M/uL (4.20-5.40); White Blood Count 3.41 K/ul (4.8-10.8)
[2023-10-28 06:06] LABS: Albumin Level 3.3 gm/dl (3.4-5.0); BUN Creatinine Ratio 12.1 (10-20); Bilirubin,Total 0.3 mg/dl (0.2-1.0); Calcium 9.1 mg/dl (8.6-10.3); Creatinine Clr Calc Pharmacy 48.1 ml/min; Est GFR (African American) 68.8 ml/min; Est GFR (Non-African American) 59.4 ml/min; Globulin 3.4 gm/dl (2.5-4.0); Potassium 3.7 mmol/L (3.5-5.1); Total Protein 6.7 gm/dl (6.0-8.3)
[2023-10-28] MEDS: PNEUMOCOCCAL VACCINE (PCV20) 20-VAL CONJ-DIP CRM/PF 0.5 ML SYR IM ONE (07:48)
[2023-10-28] MEDS: INFLUENZA VACCINE HIGH-DOSE (HD-IIV4) PF 65+ 0.7mL SYR IM ONE (07:48)
--- NOTE | 2023-10-28 13:02 | Discharge Summary ---
Date of Service October 28, 2023 Admission HPI Per Admitting Provider Shahnaz is a 67-year-old female with PMH of anxiety, asthma, cardiomyopathy, chronic back pain, GERD, HTN, gastroparesis, and postmenopausal bleeding. She presented for vomiting and epigastric pain x 2 days. Her epigastric pain is mainly in the left upper quadrant; she describes it as a burning, achy pain that comes and goes. Radiation along the left flank towards the back. She does endorse some back pain, but is unsure if it is whether from sleeping wrong or consistently throwing up. She rates the pain 7/10 at present. She has been throwing up green/yellow bile intermittently. She has been taking oxycodone twice daily for pain, as well as Advil intermittently; which has not been helping. She also took Excedrin (2 total tablets) for her headache yesterday. However, despite taking these medications she has been throwing up most of her medications. The epigastric pain is worse with eating. She did not take any of her regular morning medications today, except for her 1 inhaler. No recent change in medications. She has been tolerating fluids but not liquids. No PMH of abdominal surgeries. No PMH of gastric ulcers. Patient does note that she had a D&C last month for her ongoing vaginal discharge, and has a full hysterectomy scheduled for next month. She also notes she has been having frequent iron infusions (3 over the past 1.5 months). Patient is mildly tachycardic in the 101 bpm at time of admission; vitals otherwise stable. ED course: Zofran 4 mg IV Pantoprazole 40 mg IV ROS: Patient endorses hot/cold flashes (similar to menopause), epigastric and LUQ pain, vomiting (green & yellow bile), dizziness/lightheadedness, PENNY, light sensitivity in the morning, productive cough after inhaler, and vaginal discharge. Patient denies night-sweats, changes in vision (blurry vision, diplopia, loss of vision), chest pain, pain in left shoulder, SOB, hematemesis, diarrhea, blood in urine/stool, burning with urination, dysuria, or N/T in arms or legs. Admission Exam Per Admitting Provider General: no acute distress; pleasant affect; non-toxic appearing; well- nourished; cooperative HEENT: normocephalic, atraumatic; no scleral icterus; PERRLA w/ EOMs intact; moist mucus membrane; vision and hearing grossly intact Neck: supple; no lymphadenopathy; trachea midline Skin: warm, dry without signs of tenting; no cyanosis; no rashes, bruising, lesions, or erythema noted CV: chest wall NTP; RR, mildly tachycardic at 100 bpm; S1/S2 normal; no murmurs/rubs/gallops; pulses intact and symmetric at radial, DP, and PT Lungs: no acute respiratory distress; symmetrical chest wall expansion; clear breath sounds across all lung contreras w/o adventitious sounds; no wheezing ABD: Soft, NTP; BS present; LUQ and LLQ TTP; RUQ and RLQ NTP; negative Hoyt sign; negative McBurney's point tenderness; negative Rovsing sign; no signs of bruises or rashes on the abdomen MSK: no tics or fasciculations; no edema noted in the LEs b/l, nonerythematous Neuro: A&Ox3; normal mood and affect; fluent speech; no focal deficits; sensation grossly intact in the LEs b/l Principal Diagnosis Sphincter of Oddi dysfunction Discharge Exam General: No acute distress, nondiaphoretic, well-developed, well-nourished. Skin: The skin was without rashes, erythema, edema, or bruising. Cardiac: Regular rate and rhythm without murmurs gallops or rubs. Pulm: Clear to auscultation bilaterally without wheezes, rales or rhonchi. No retractions or accessory muscle use. Abdominal: Positive bowel sounds x 4. Soft, non-distended, without masses or organomegaly. No guarding or rebound tenderness. Neuro: A&O x3. No focal neurological deficits. Discharge Data Allergies Allergy/AdvReac Type Severity Reaction Status Date / Time Horse/Equine Containing AdvReac Unknown Skin test Verified 10/12/23 12:29 Products positive Consultations 10/25/23 15:52 ED Decision to Admit Stat 10/25/23 20:19 Consult Gastroenterology Routine 10/28/23 12:43 Consult [facility] welt insole channeler Routine Ordered Studies 10/25/23 12:47 CT abd pelvis IV con only Stat 10/25/23 14:48 MR MRCP Stat Hospital Course (1) Sphincter of Oddi dysfunction: - Presented to ER due to vomiting and epigastric pain that developed evening of 10/23 without leukocytosis and afebrile. - MRCP revealed no evidence of ductal stone in the CBD. Suggested dilation is from sphincter of Oddi dysfunction. - Concern for sepsis as patient became hypotensive, febrile, and had mildly elevated transaminases. Improvement with fluid resuscitation and antibiotics. - Blood cultures positive for pansensitive Klebsiella pneumoniae. Discharged on ciprofloxacin until 11/09/2023. - Recommend outpatient EUS with ERCP to be formed at [facility] upon discharge. - Recommend discussion with PCP on transitioning from metoprolol to CCB or nitrates to help with gallbladder contractions. (2) GERD (gastroesophageal reflux disease): Continue omeprazole 40 mg p.o. twice daily (3) Gastroparesis: Noted on GI visit June 2023 Reglan was discussed at that time, but patient elected to try lifestyle modifications first (4) Iron deficiency anemia: Receives scheduled iron infusions Plan CODE STATUS: Full code Total Time Total Time Spent Total Time Spent (In Minutes): Greater than 30 minutes spent completing this discharge process including direct patient care, medication reconciliation, documentation, review of labs and images, and coordination of care. 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 Addtl Attending Provider Instructions: Mrs. Najera, You were admitted to the hospital for functional gallbladder disorder. This is what caused your symptoms of stomach pain and vomiting. While in the hospital, it appeared that an infection spread throughout your body which is what caused the low blood pressure and fever. Due to this, you were on IV antibiotics. Upon discharge from the hospital, you will be on oral antibiotics. Additionally, you will have in EUS (endoscopic ultrasound) with possible ERCP at [facility]. Their office will call you next week to schedule an appointment. Upon discharge from the hospital: * Please take your oral antibiotic (ciprofloxacin) until 11/09/2023 -- You will take this antibiotic twice a day. -- It is important to take this exactly as directed. Do not stop taking it until all of the make medication is gone, even if you feel better. The infection may not go away fully and return if you stop taking the antibiotic too soon. -- This will treat the bacteria in your blood. -- This medicine may make you dizzy or lightheaded. Avoid driving until you know how it will affect you. -- Other rare, but important side effects to be aware of include confusion, difficulty sleeping or remembering things, and tendinitis (inflammation of a tendon). * Please continue to follow a low-fat diet for about 1 week. You can then advance your diet as tolerated. * Please follow-up with your PCP in about 1 week to discuss your hospital course and evaluate how you are doing. Their office will call you this week to schedule that appointment. Please return to the hospital if you experience any of the following: Fever or chills, severe nausea or vomiting, severe abdominal pain, shortness of breath, chest pain, fast heartbeat, fast breathing, dizziness, or confusion. It was a pleasure taking care of you while you were in the hospital, Ignacia Andrews PA-C Pending Studies at Discharge: No Stand-Alone Forms: My [facility], Smoking Cessation Medications and DC Order Prescriptions: New ciprofloxacin HCl [Cipro] 500 mg tablet 500 mg PO Q12H Qty: 24 0RF Continued albuterol sulfate 2.5 mg /3 mL (0.083 %) solution for nebulization 2.5 mg inhalation Q4H PRN (Reason: Shortness Of Breath Or Wheezing) Qty: 150 5RF albuterol sulfate [Ventolin HFA] 90 mcg/actuation HFA aerosol inhaler 2 puff INHALATION QID PRN (Reason: Bronchodilation) Qty: 8.5 5RF ipratropium-albuterol 0.5 mg-3 mg(2.5 mg base)/3 mL solution for nebulization 3 ml inhalation Q4H PRN (Reason: wheezing) Qty: 180 1RF Tezspire 210 mg/1.91 mL (110 mg/mL) pen injector 210 mg subcut Q4WK Qty: 1.91 11RF Rx Instructions: Tezspire pen approved by [employer]- coverage dates 02/10/23-07/30/23 (faxing copy of [place]) Spiriva Respimat 2.5 mcg/actuation mist 2 puff INH QAM Qty: 4 2RF montelukast [Singulair] 10 mg tablet 10 mg PO HS Qty: 90 3RF omeprazole 40 mg capsule,delayed release(DR/EC) 40 mg PO BID Qty: 60 5RF gabapentin [Neurontin] 300 mg capsule 300 mg PO TID Qty: 270 3RF oxycodone-acetaminophen 10-325 mg tablet 1 tab PO Q6H PRN (Reason: Pain) Qty: 120 0RF carisoprodol [Soma] 350 mg tablet 350 mg PO BID PRN (Reason: muscle pain) Qty: 60 1RF (DME) nebulizer accessories Kit See Rx Instructions .Route Qty: 1 2RF Rx Instructions: As directed estradiol 0.01 % (0.1 mg/gram) cream 1 g vaginal .COMPLEX Qty: 42.5 1RF Rx Instructions: 1 g vaginally; 2 days per week vaginally. budesonide-formoterol [Symbicort] 160-4.5 mcg/actuation HFA aerosol inhaler 1 puff INH BID Qty: 10.2 5RF metoprolol succinate 100 mg tablet extended release 24 hr 100 mg PO QAM ibuprofen [Advil] 200 mg Tablet 400 mg PO Q6H PRN (Reason: Pain) Excedrin Extra Strength 250-250-65 mg Tablet 1 - 2 tab PO Q6H PRN (Reason: Pain) trazodone 50 mg tablet 50 mg PO HS PRN (Reason: Sleep) Rx Instructions: 1-2 tabs PO qhs prn sleep; cholecalciferol (vitamin D3) 1,250 mcg (50,000 unit) capsule 50,000 unit PO WK Rx Instructions: 50,000 units orally once weekly; Discharge Orders: Discharge Order (Routine); Ordered 10/28/23 Ordered By: Ignacia Andrews Admission Data Admit Date/Time: 10/25/23 15:58 Attending Provider: Preet Carreon Admit Provider: Alfred Ventura Primary Care Provider: Kala Yarbrough Other Providers: Baresel,Bladimir Fowler Coding Level of Care Code 41934 INP/OBS DISCH >30 MIN Diagnoses Sphincter of Oddi dysfunction K83.4 Gastroesophageal reflux disease, unspecified whether esophagitis present K21.9 Esophagitis presence: esophagitis presence not specified Gastroparesis K31.84 Iron deficiency anemia, unspecified iron deficiency anemia type D50.9 Iron deficiency anemia type: unspecified iron deficiency
== END 2023-10-28 13:58 | disposition home or self-care (01) | DRG 872 ==
LOC: ED 10:42 → SUATTDRO 15:58 → 2N 15:58